=== PATIENT | female | born 1970 | race Caucasian/White ===

== ENCOUNTER 2022-06-06 06:12 | Day surgery (SDC) | payer OTHER, SELFPAY ==
--- NOTE | 2022-06-06 06:17 | CRLHL7_ITS ---
For Patients: As a result of the Century Cures Act, medical imaging exams and procedure reports are released immediately into your electronic medical record. You may view this report before your referring provider. If you have questions, please contact your health care provider. INDICATION: Preop assessment COMPARISON: None TECHNIQUE: Single-view study FINDINGS: TUBES AND LINES: None. HEART AND MEDIASTINUM: The heart size is normal. The mediastinal contour appears normal for patient age. LUNGS AND PLEURAL SPACES: The lungs appear normal.The pleural spaces are unremarkable. OSSEOUS STRUCTURES: Age-appropriate appearance. No acute focal finding. IMPRESSION: No evidence of active pulmonary disease. Dictated by Brent Fulton MD @ 06/06/2022 7:08:54 AM (Electronically Signed)
[2022-06-06] MEDS: LACTATED RINGERS 1000 ML 1,000 ML 100 ML IV ×2 (06:20→09:36)
[2022-06-06 06:40] VITALS: BP 124/81; PULSE 79; RESP 16; TEMP 37; O2SAT 97
[2022-06-06 06:42] VITALS: BMI 22.7
[2022-06-06] MEDS: SODIUM CHLORIDE 0.9 % (FLUSH) 10 ML SYRINGE IVF (07:11)
--- NOTE | 2022-06-06 07:12 | SUR.PREOP ---
Patient provided home covid negative results to RN.
--- NOTE | 2022-06-06 07:15 | W.ANESCHARGE ---
Anesthesia Charges Start Date/Time Anesthesia Start Date: 06/06/22 Anesthesia Start Time: 07:36 Stop Date/Time Anesthesia Stop Date: 06/06/22 Anesthesia Stop Time: 08:37
[2022-06-06] MEDS: BUPIVACAINE 0.5% 30 ML INJECTION (08:07)
[2022-06-06] MEDS: 0.9% SODIUM CHL 50 ML VIAL 100 ML INJECTION (08:07)
--- NOTE | 2022-06-06 08:20 | CRLHL7_ITS ---
For Patients: As a result of the Century Cures Act, medical imaging exams and procedure reports are released immediately into your electronic medical record. You may view this report before your referring provider. If you have questions, please contact your health care provider. INDICATION: Port-A-Cath placement. TECHNIQUE: Fluoroscopically guided left-sided Port-A-Cath placement. FINDINGS: 48.8 seconds fluoroscopy time utilized intraoperatively. A single spot image demonstrates a Port-A-Cath line with its tip in the mid superior vena cava. IMPRESSION: Left-sided Port-A-Cath placement. 48.8 seconds fluoroscopy time utilized. Dictated by Roger Yan MD @ 06/06/2022 8:26:52 AM (Electronically Signed)
--- NOTE | 2022-06-06 08:31 | CRLHL7_ITS ---
For Patients: As a result of the Century Cures Act, medical imaging exams and procedure reports are released immediately into your electronic medical record. You may view this report before your referring provider. If you have questions, please contact your health care provider. INDICATION: Port-A-Cath placement. TECHNIQUE: AP portable postprocedure chest x-ray. COMPARISON: June 06, 2022 performed earlier on the same date. FINDINGS: New left-sided Port-A-Cath with lead tip in the mid superior vena cava. No pneumothorax. Normal heart size. The included skeleton is unremarkable. IMPRESSION: New left-sided Port-A-Cath in good position. No pneumothorax. Dictated by Roger Yan MD @ 06/06/2022 8:56:58 AM (Electronically Signed)
[2022-06-06 08:34] VITALS: BP 100/77; PULSE 87; RESP 16; TEMP 36.6; O2SAT 98
--- NOTE | 2022-06-06 08:39 | W.ANESCHARGE ---
Anesthesia Charges Start Date/Time Anesthesia Start Date: 06/06/22 Anesthesia Start Time: 07:36 Stop Date/Time Anesthesia Stop Date: 06/06/22 Anesthesia Stop Time: 08:37
--- NOTE | 2022-06-06 08:42 | PM.GSPRC ---
Operative Note Date of procedure: 06/06/22 Pre-op diagnosis: Right-sided triple negative breast cancer Post-op diagnosis: Same Type of Procedure: Left IJ Port-A-Cath placement with ultrasound and fluoroscopic guidance Indications: The patient is a 51-year-old female who was diagnosed a right-sided breast cancer. This was found to be hormone receptor negative and therefore it was recommended she undergo neoadjuvant chemotherapy. She presents today for port placement for this. Preoperative imaging was reviewed and shows no pulmonary disease. Procedure Description: After discussing the risks and benefits of the procedure, the patient signed informed consent.? The operative site was marked and the patient was brought to the operating room and placed on the operating table in supine position.? Care was taken to pad the patient's pressure points.?? The patient was then given sedation by anesthesia.?? The operative site was then prepped and draped in the usual sterile fashion.? A time-out was then performed. The patient's left internal jugular vein was visualized using ultrasound. Local anesthetic was injected into the skin overlying the vein. This was accessed percutaneously using ultrasound guidance. Using Seldinger technique, a guidewire was threaded through the needle. Fluoroscopy was used to demonstrate the wire in the appropriate location in the SVC. A skin roni was made around the wire. Next, local anesthetic was injected into the skin below the clavicle and along the proposed tract to the neck incision. A skin incision was then made with a 15 blade and a pocket created in the subcutaneous tissue with cautery. A tunneler was then used to thread the catheter from the chest wall pocket to the neck incision. Once this was done fluoroscopy was brought into the field. Over the wire the tract was dilated using fluoroscopy. The wire and the dilator were then removed leaving the sheath in the vein. Through this, the catheter was threaded. Using fluoroscopy, the catheter was positioned into the distal SVC. The catheter was noted to flush and aspirate easily. The catheter was then connected to the port. The port was placed in the pocket and secured in place with 2 0 Prolene sutures. It was noted to flush and aspirate easily. This was then locked with heparinized saline. The skin was closed with absorbable suture. Sterile dressings were applied. Instrument sponge and needle counts were correct at the end of the case. The patient was woken and taken to the PACU in stable condition. ? Sterile dressings were then applied. ? Findings: Left IJ power port placed in the low SVC Anesthesia: MAC Surgeon: Kym Stuart MD Estimated blood loss (mL): 5 Condition: stable Disposition: same day
[2022-06-06 08:46] VITALS: BP 113/62; PULSE 68; RESP 16; O2SAT 99
[2022-06-06 09:38] VITALS: BP 123/72; PULSE 88; RESP 16; O2SAT 99
== END 2022-06-06 10:00 | disposition home or self-care (01) ==
PROVIDERS: PCP Physician Assistant; Visit Provider Surgery
PROC: (CPT 36561; principal; 2022-06-06 07:30)
DX: Z45.2 Encounter for adjustment and management of vascular access device (principal); C50.411 Malignant neoplasm of upper-outer quadrant of right female breast; C77.3 Secondary and unspecified malignant neoplasm of axilla and upper limb lymph nodes; Z17.1 Estrogen receptor negative status [ER-]
CPT/HCPCS: 36561; 00532; 71045; 76000; C1788; J2250; J2704; J3010; J3490; J7120

== ENCOUNTER 2022-06-07 13:10 | Outpatient (CLI) | payer OTHER, SELFPAY | END 2022-06-07 13:11 | disposition home or self-care (01) | LOC: RAD 13:10 | PROVIDERS: PCP Physician Assistant; Visit Provider Internal Medicine Hematology & Oncology | DX: Z51.81 Encounter for therapeutic drug level monitoring (principal); C50.919 Malignant neoplasm of unspecified site of unspecified female breast | CPT/HCPCS: 93306 ==

== ENCOUNTER 2022-08-16 13:45 | Outpatient (CLI) | payer OTHER, SELFPAY | END 2022-08-16 13:46 | disposition home or self-care (01) | LOC: RAD 13:46 | PROVIDERS: PCP Physician Assistant; Visit Provider Physician Assistant | DX: C50.912 Malignant neoplasm of unspecified site of left female breast (principal); Z51.81 Encounter for therapeutic drug level monitoring; Z79.899 Other long term (current) drug therapy | CPT/HCPCS: 93306 ==

== ENCOUNTER 2022-10-31 08:00 | Outpatient (RCR) | payer OTHER, SELFPAY ==
--- NOTE | 2022-05-29 16:00 | ONC.NURNOTE ---
I met with patient for chemotherapy teaching. Contents of the chemotherapy binder discussed including side effects of treatment, what to report to MD, how to contact the provider after hours, safe handling, etc. Patient was given a tour of the infusion area. Patient completed the distress screening and denies need for intervention at this time. Patient reports having a good support system. Patient verbalizes understanding of plan of care and was encouraged to call with questions or concerns.
--- NOTE | 2022-06-03 10:58 | URNOTE ---
Received request for prior authorization. Per [facility], Taxol (J9267), Carboplatin (J9045) and Aloxi (J2469) do not require prior authorization. Pembrolizumab (J9271) has been approved 05/29/2022-12/03/2022. Case #[id number]
[2022-06-06 09:30] VITALS: BP 122/77; PULSE 81; RESP 14; TEMP 36.1; O2SAT 98
[2022-06-06 10:00] VITALS: BP 118/80; PULSE 70; RESP 14; TEMP 36.1; O2SAT 96
[2022-06-06] MEDS: PALONOSETRON 0.25 MG/5 ML inj IV (10:00)
[2022-06-06 10:54] LABS: Basophils Absolute Auto 0.02 K/uL (0.00-0.30); Basophils Percent Auto 0.3 % (0.0-3.0); Eosinophils Absolute Auto 0.03 K/uL (0.00-0.50); Eosinophils Percent Auto 0.4 % (0.0-7.0); Hematocrit 40.3 % (33.0-51.0); Hemoglobin* 13.5 gm/dL (12.0-16.0); Immature Granulocytes Abs Auto 0.02 K/uL (0.00-0.30); Immature Granulocytes Pct Auto 0.3 %; Lymphocytes Absolute Auto 1.84 K/uL (0.90-2.90); Lymphocytes Percent Auto 24.8 % (20-44); Mean Corpuscular HGB Conc 34 gm/dL (32-36); Mean Corpuscular Hemoglobin 31 pg (26-34); Mean Corpuscular Volume 93 fL (80-100); Monocytes Percent Auto 4.9 % (0.0-11.0); Neutrophils Absolute Auto 5.15 K/uL (1.7-7.0); Neutrophils Percent Auto 69.3 % (42.0-72.0); Platelet Count* 316 K/uL (140-440); RDW Coefficient of Variation % 13.3 % (11.5-15.5); Red Blood Count 4.32 m/uL (4.00-5.20); White Blood Count* 7.42 K/uL (4.50-11.00)
[2022-06-06 10:57] LABS: Slide Review Reflex No
[2022-06-06 10:58] LABS: Albumin* 3.7 g/dL (3.3-5.0); Chloride* 109 mmol/L (96-114)
[2022-06-06 10:59] LABS: Potassium* 3.6 mmol/L (3.6-5.1); Sodium* 139 mmol/L (135-149)
[2022-06-06 11:01] LABS: Aspartate Amino Transferase* 25 U/L (12-35); Bilirubin Total* 0.4 mg/dL (0.1-1.5); Blood Urea Nitrogen* 11 mg/dL (7-30); Carbon Dioxide* 24 mmol/L (20-32); Creatinine* 0.7 mg/dL (0.5-1.5); Estimated Glomerular Filt Rate 105 ml/min; Total Protein* 6.3 g/dL (6.0-8.3)
[2022-06-06 11:02] LABS: Alanine Aminotransferase* 19 U/L (4-35); Alkaline Phosphatase* 57 U/L (40-150); Calcium* 8.3 mg/dL (8.4-10.6); Glucose* 117 mg/dL (60-115)
[2022-06-06] MEDS: PEMBROLIZUMAB 200 MG, TUBING PRIMARY 1 EACH, In-line 0.2 micron filter set 1 EACH in 0.... 216 MG IVPB (12:07)
[2022-06-06] MEDS: dexAMETHasone 20 MG in 0.9 % SODIUM CHLORIDE 100 ml 100 ML 408 MG IVPB (12:30)
[2022-06-06] MEDS: FAMOTIDINE 20 MG, diphenhydrAMINE 50 MG in 0.9 % SODIUM CHLORIDE 100 ml 100 ML 309 MG IVPB (13:16)
[2022-06-06] MEDS: TUBING PRIMARY IV (13:37)
[2022-06-06] MEDS: IN LINE IV (13:37)
[2022-06-06] MEDS: [UNRECOGNIZED DRUG - OTHER] IV (13:37)
[2022-06-06] MEDS: MICRON FILTER SET IV (13:37)
[2022-06-06] MEDS: PACLITAXEL IV (13:37)
--- NOTE | 2022-06-07 10:52 | ONC.NURNOTE ---
Call to patient in follow up to new start chemotherapy. Patient states she feels normal. She slept well, is eating and drinking and denies any new side effects. Patient reports feeling tightness around her new port site. I explained that this is pretty typical for the first several days. Encouraged her to monitor closely for neck swelling, redness, etc. and to report any of those immediately. Patient requested Rx for EMLA cream to be used prior to port access. Rx sent. Patient also reported her left middle finger is sore from the cryotherapy. No skin breakdown noted. Will continue to monitor. Patient denies any further questions or concerns.
[2022-06-07 16:33] LABS: Cortisol, Serum 12.4 ug/dL
[2022-06-13 08:44] VITALS: BP 112/76; PULSE 110; RESP 16; TEMP 36.6; O2SAT 96
[2022-06-13 09:15] LABS: Basophils Absolute Auto 0.03 K/uL (0.00-0.30); Basophils Percent Auto 0.5 % (0.0-3.0); Eosinophils Absolute Auto 0.09 K/uL (0.00-0.50); Eosinophils Percent Auto 1.6 % (0.0-7.0); Hematocrit 41.1 % (33.0-51.0); Hemoglobin* 13.9 gm/dL (12.0-16.0); Immature Granulocytes Abs Auto 0.02 K/uL (0.00-0.30); Immature Granulocytes Pct Auto 0.4 %; Lymphocytes Percent Auto 19.6 % (20-44); Mean Corpuscular HGB Conc 34 gm/dL (32-36); Mean Corpuscular Hemoglobin 31 pg (26-34); Mean Corpuscular Volume 92 fL (80-100); Monocytes Percent Auto 8.6 % (0.0-11.0); Neutrophils Absolute Auto 3.78 K/uL (1.7-7.0); Neutrophils Percent Auto 69.3 % (42.0-72.0); Platelet Count* 246 K/uL (140-440); RDW Coefficient of Variation % 13.1 % (11.5-15.5); Red Blood Count 4.45 m/uL (4.00-5.20); White Blood Count* 5.46 K/uL (4.50-11.00)
[2022-06-13 09:27] LABS: Slide Review Reflex No
[2022-06-13 09:34] LABS: Chloride* 106 mmol/L (96-114); Sodium* 137 mmol/L (135-149)
[2022-06-13 09:36] LABS: Bilirubin Total* 0.4 mg/dL (0.1-1.5); Creatinine* 0.7 mg/dL (0.5-1.5); Estimated Glomerular Filt Rate 105 ml/min
[2022-06-13 09:37] LABS: Alanine Aminotransferase* 20 U/L (4-35); Alkaline Phosphatase* 61 U/L (40-150); Aspartate Amino Transferase* 25 U/L (12-35); Blood Urea Nitrogen* 7 mg/dL (7-30); Calcium* 8.5 mg/dL (8.4-10.6); Carbon Dioxide* 25 mmol/L (20-32); Glucose* 120 mg/dL (60-115); Total Protein* 6.9 g/dL (6.0-8.3)
[2022-06-13] MEDS: dexAMETHasone 20 MG in 0.9 % SODIUM CHLORIDE 100 ml 100 ML 408 MG IVPB (10:09)
[2022-06-13] MEDS: PALONOSETRON 0.25 MG/5 ML inj IV (10:10)
[2022-06-13] MEDS: FAMOTIDINE 20 MG, diphenhydrAMINE 50 MG in 0.9 % SODIUM CHLORIDE 100 ml 100 ML 309 MG IVPB (10:28)
[2022-06-13] MEDS: [UNRECOGNIZED DRUG - OTHER] IV (10:56)
[2022-06-13] MEDS: PACLITAXEL IV (10:56)
[2022-06-13] MEDS: MICRON FILTER SET IV (10:56)
[2022-06-13] MEDS: TUBING PRIMARY IV (10:56)
[2022-06-13] MEDS: IN LINE IV (10:56)
[2022-06-20 08:05] LABS: Basophils Percent Auto 0.8 % (0.0-3.0); Eosinophils Percent Auto 2.8 % (0.0-7.0); Hematocrit 39.8 % (33.0-51.0); Hemoglobin* 13.3 gm/dL (12.0-16.0); Lymphocytes Percent Auto 48.5 % (20-44); Mean Corpuscular HGB Conc 33 gm/dL (32-36); Mean Corpuscular Hemoglobin 31 pg (26-34); Mean Corpuscular Volume 93 fL (80-100); Neutrophils Percent Auto 39.9 % (42.0-72.0); Platelet Count* 340 K/uL (140-440); RDW Coefficient of Variation % 13.1 % (11.5-15.5)
[2022-06-20 08:11] LABS: Slide Review Reflex No
[2022-06-20 08:20] LABS: Albumin* 3.7 g/dL (3.3-5.0)
[2022-06-20 08:21] LABS: Chloride* 108 mmol/L (96-114); Potassium* 3.9 mmol/L (3.6-5.1); Sodium* 140 mmol/L (135-149)
[2022-06-20 08:23] LABS: Bilirubin Total* 0.7 mg/dL (0.1-1.5); Carbon Dioxide* 25 mmol/L (20-32); Creatinine* 0.8 mg/dL (0.5-1.5); Estimated Glomerular Filt Rate 89 ml/min
[2022-06-20 08:24] LABS: Alanine Aminotransferase* 20 U/L (4-35); Alkaline Phosphatase* 64 U/L (40-150); Aspartate Amino Transferase* 25 U/L (12-35); Blood Urea Nitrogen* 15 mg/dL (7-30); Calcium* 8.7 mg/dL (8.4-10.6); Glucose* 88 mg/dL (60-115); Total Protein* 6.6 g/dL (6.0-8.3)
[2022-06-20] MEDS: dexAMETHasone 20 MG in 0.9 % SODIUM CHLORIDE 100 ml 100 ML 420 MG IVPB (09:29)
[2022-06-20] MEDS: PALONOSETRON 0.25 MG/5 ML inj IV (09:30)
[2022-06-20] MEDS: FAMOTIDINE 20 MG, diphenhydrAMINE 50 MG in 0.9 % SODIUM CHLORIDE 100 ml 100 ML 420 MG IVPB (09:49)
[2022-06-20] MEDS: TUBING PRIMARY IV (10:10)
[2022-06-20] MEDS: [UNRECOGNIZED DRUG - OTHER] IV (10:10)
[2022-06-20] MEDS: IN LINE IV (10:10)
[2022-06-20] MEDS: PACLITAXEL IV (10:10)
[2022-06-20] MEDS: MICRON FILTER SET IV (10:10)
--- NOTE | 2022-06-20 13:26 | PC.NURSE ---
Addendum entered by Elizabeth Hassan RN 06/20/22 15:22: Pt called back this afternoon and states that the rash has resolved. Original Note: Pt called this afternoon with new concerns of slight rash on her thighs after having chemo this morning. Luci states that she got a meal at [employer] and in the car rested the bag on her lap. When pt got home she used the restroom and when pants down noted a slight rash on her legs in the area where the bag was setting. RN advised pt to monitor over the next hour or so and call back at 3:00 PM with an update. Luci asked that HAYLEE Jules be notified. This was done. Will follow.
--- NOTE | 2022-06-21 11:45 | URNOTE ---
Request received for authorization for tbo-filgrastim (Granix) (J1447). Prior authorization is not required per Rep. Bassam mendoza [facility] Ref#[id number].
--- NOTE | 2022-06-21 15:49 | URNOTE ---
Request received for authorization for Minubo (J1442).?Prior authorization is not required?per Rep. Aba Childress at [facility] Ref#[id number].
[2022-06-27 10:38] VITALS: BP 110/58; PULSE 93; RESP 16; TEMP 36.6; O2SAT 95
[2022-06-27 11:04] LABS: Basophils Percent Auto 0.8 % (0.0-3.0); Eosinophils Percent Auto 0.5 % (0.0-7.0); Hematocrit 39.1 % (33.0-51.0); Hemoglobin* 13.1 gm/dL (12.0-16.0); Immature Granulocytes Pct Auto 0.3 %; Lymphocytes Percent Auto 43.4 % (20-44); Mean Corpuscular HGB Conc 34 gm/dL (32-36); Mean Corpuscular Hemoglobin 32 pg (26-34); Mean Corpuscular Volume 94 fL (80-100); Monocytes Percent Auto 6.9 % (0.0-11.0); Neutrophils Percent Auto 48.1 % (42.0-72.0); Platelet Count* 351 K/uL (140-440); RDW Coefficient of Variation % 13.2 % (11.5-15.5); Red Blood Count 4.16 m/uL (4.00-5.20); White Blood Count* 3.78 K/uL (4.50-11.00)
[2022-06-27 11:09] LABS: Slide Review Reflex No
[2022-06-27 11:21] LABS: Albumin* 3.7 g/dL (3.3-5.0); Chloride* 110 mmol/L (96-114); Sodium* 138 mmol/L (135-149)
[2022-06-27 11:22] LABS: Potassium* 3.9 mmol/L (3.6-5.1)
[2022-06-27 11:24] LABS: Alkaline Phosphatase* 58 U/L (40-150); Aspartate Amino Transferase* 25 U/L (12-35); Bilirubin Total* 0.4 mg/dL (0.1-1.5); Carbon Dioxide* 25 mmol/L (20-32); Creatinine* 0.7 mg/dL (0.5-1.5); Estimated Glomerular Filt Rate 105 ml/min; Total Protein* 6.5 g/dL (6.0-8.3)
[2022-06-27 11:25] LABS: Alanine Aminotransferase* 20 U/L (4-35); Blood Urea Nitrogen* 14 mg/dL (7-30); Calcium* 8.6 mg/dL (8.4-10.6); Glucose* 102 mg/dL (60-115)
[2022-06-27] MEDS: PEMBROLIZUMAB 200 MG, TUBING PRIMARY 1 EACH, In-line 0.2 micron filter set 1 EACH in 0.... 216 MG IVPB (12:07)
[2022-06-27] MEDS: PALONOSETRON 0.25 MG/5 ML inj IV (12:46)
[2022-06-27] MEDS: dexAMETHasone 20 MG in 0.9 % SODIUM CHLORIDE 100 ml 100 ML 408 MG IVPB (12:46)
[2022-06-27] MEDS: 0.9 % SODIUM CHLORIDE 250 ml IV (13:05)
[2022-06-27] MEDS: FAMOTIDINE 20 MG, diphenhydrAMINE 50 MG in 0.9 % SODIUM CHLORIDE 100 ml 100 ML 309 MG IVPB (13:05)
[2022-06-27] MEDS: SODIUM CHLORIDE 0.9 % (FLUSH) 10 ML SYRINGE IVF ×2 (13:06→15:10)
[2022-06-27] MEDS: IN LINE IV (13:26)
[2022-06-27] MEDS: [UNRECOGNIZED DRUG - OTHER] IV (13:26)
[2022-06-27] MEDS: PACLITAXEL IV (13:26)
[2022-06-27] MEDS: MICRON FILTER SET IV (13:26)
[2022-06-27] MEDS: TUBING PRIMARY IV (13:26)
[2022-06-27] MEDS: HEPARIN 500 UNIT/5 ML SYRINGE IVF (15:10)
[2022-06-28 12:00] LABS: Cortisol, Serum 12.4 ug/dL
[2022-06-28 15:03] VITALS: BP 115/75; PULSE 82; RESP 16; TEMP 36.7; O2SAT 99
[2022-06-28] MEDS: TBO-FILGRASTIM 300 MCG/0.5 ML INJ SUBCUT (15:11)
[2022-07-04 07:58] VITALS: BP 102/71; PULSE 92; RESP 16; TEMP 36.7; O2SAT 95
[2022-07-04 08:14] LABS: Basophils Percent Auto 0.6 % (0.0-3.0); Eosinophils Percent Auto 0.9 % (0.0-7.0); Hematocrit 39.1 % (33.0-51.0); Immature Granulocytes Pct Auto 0.3 %; Lymphocytes Percent Auto 52.5 % (20-44); Mean Corpuscular HGB Conc 33 gm/dL (32-36); Mean Corpuscular Hemoglobin 31 pg (26-34); Mean Corpuscular Volume 94 fL (80-100); Monocytes Percent Auto 11.6 % (0.0-11.0); Neutrophils Percent Auto 34.1 % (42.0-72.0); Platelet Count* 269 K/uL (140-440); RDW Coefficient of Variation % 13.5 % (11.5-15.5); Red Blood Count 4.15 m/uL (4.00-5.20); White Blood Count* 3.45 K/uL (4.50-11.00)
[2022-07-04 08:26] LABS: Slide Review Reflex No
[2022-07-04] MEDS: SODIUM CHLORIDE 0.9 % (FLUSH) 10 ML SYRINGE IVF (08:30)
[2022-07-04 08:31] LABS: Albumin* 3.8 g/dL (3.3-5.0); Chloride* 108 mmol/L (96-114); Sodium* 139 mmol/L (135-149)
[2022-07-04 08:32] LABS: Potassium* 3.9 mmol/L (3.6-5.1)
[2022-07-04 08:34] LABS: Aspartate Amino Transferase* 28 U/L (12-35); Bilirubin Total* 0.5 mg/dL (0.1-1.5); Blood Urea Nitrogen* 17 mg/dL (7-30); Carbon Dioxide* 23 mmol/L (20-32); Creatinine* 0.7 mg/dL (0.5-1.5); Estimated Glomerular Filt Rate 105 ml/min; Total Protein* 6.6 g/dL (6.0-8.3)
[2022-07-04 08:35] LABS: Alanine Aminotransferase* 24 U/L (4-35); Alkaline Phosphatase* 66 U/L (40-150); Calcium* 8.6 mg/dL (8.4-10.6); Glucose* 110 mg/dL (60-115)
[2022-07-04] MEDS: 0.9 % SODIUM CHLORIDE 250 ml IV (08:53)
[2022-07-04] MEDS: dexAMETHasone 20 MG in 0.9 % SODIUM CHLORIDE 100 ml 100 ML 420 MG IVPB (09:06)
[2022-07-04] MEDS: PALONOSETRON 0.25 MG/5 ML inj IV (09:06)
[2022-07-04] MEDS: FAMOTIDINE 20 MG, diphenhydrAMINE 50 MG in 0.9 % SODIUM CHLORIDE 100 ml 100 ML 420 MG IVPB (09:28)
[2022-07-04] MEDS: MICRON FILTER SET IV (10:07)
[2022-07-04] MEDS: TUBING PRIMARY IV (10:07)
[2022-07-04] MEDS: [UNRECOGNIZED DRUG - OTHER] IV (10:07)
[2022-07-04] MEDS: IN LINE IV (10:07)
[2022-07-04] MEDS: PACLITAXEL IV (10:07)
[2022-07-04] MEDS: SODIUM CHLORIDE 0.9% IVPB (11:11)
[2022-07-04] MEDS: TUBING SECONDARY IVPB (11:11)
[2022-07-04] MEDS: CARBOPLATIN IVPB (11:11)
[2022-07-05 15:00] VITALS: BP 111/72; PULSE 80; RESP 16; TEMP 37.1; O2SAT 97
[2022-07-05] MEDS: TBO-FILGRASTIM 300 MCG/0.5 ML INJ SUBCUT (15:10)
[2022-07-11 08:01] VITALS: BP 98/66; PULSE 95; RESP 16; TEMP 36.7; O2SAT 95
[2022-07-11 08:15] LABS: Basophils Percent Auto 0.5 % (0.0-3.0); Eosinophils Percent Auto 0.7 % (0.0-7.0); Hematocrit 38.1 % (33.0-51.0); Immature Granulocytes Pct Auto 0.2 %; Lymphocytes Percent Auto 45.7 % (20-44); Mean Corpuscular HGB Conc 34 gm/dL (32-36); Mean Corpuscular Hemoglobin 32 pg (26-34); Mean Corpuscular Volume 93 fL (80-100); Monocytes Percent Auto 10.1 % (0.0-11.0); Neutrophils Percent Auto 42.8 % (42.0-72.0); Platelet Count* 203 K/uL (140-440); RDW Coefficient of Variation % 13.7 % (11.5-15.5); Red Blood Count 4.09 m/uL (4.00-5.20); White Blood Count* 4.27 K/uL (4.50-11.00)
[2022-07-11 08:29] LABS: Chloride* 108 mmol/L (96-114); Potassium* 4.1 mmol/L (3.6-5.1); Sodium* 139 mmol/L (135-149)
[2022-07-11 08:31] LABS: Slide Review Reflex No
[2022-07-11 08:32] LABS: Alanine Aminotransferase* 24 U/L (4-35); Alkaline Phosphatase* 75 U/L (40-150); Aspartate Amino Transferase* 24 U/L (12-35); Bilirubin Total* 0.6 mg/dL (0.1-1.5); Blood Urea Nitrogen* 15 mg/dL (7-30); Carbon Dioxide* 25 mmol/L (20-32); Creatinine* 0.8 mg/dL (0.5-1.5); Estimated Glomerular Filt Rate 89 ml/min; Glucose* 98 mg/dL (60-115); Total Protein* 6.8 g/dL (6.0-8.3)
[2022-07-11 08:33] LABS: Calcium* 8.8 mg/dL (8.4-10.6)
[2022-07-11] MEDS: dexAMETHasone 20 MG in 0.9 % SODIUM CHLORIDE 100 ml 100 ML 408 MG IVPB (09:32)
[2022-07-11] MEDS: PALONOSETRON 0.25 MG/5 ML inj IV (09:32)
[2022-07-11] MEDS: 0.9 % SODIUM CHLORIDE 250 ml IV (09:32)
[2022-07-11] MEDS: FAMOTIDINE 20 MG, diphenhydrAMINE 50 MG in 0.9 % SODIUM CHLORIDE 100 ml 100 ML 309 MG IVPB (09:56)
[2022-07-11] MEDS: IN LINE IV (10:23)
[2022-07-11] MEDS: [UNRECOGNIZED DRUG - OTHER] IV (10:23)
[2022-07-11] MEDS: TUBING PRIMARY IV (10:23)
[2022-07-11] MEDS: PACLITAXEL IV (10:23)
[2022-07-11] MEDS: MICRON FILTER SET IV (10:23)
[2022-07-11] MEDS: HEPARIN 500 UNIT/5 ML SYRINGE IVF (12:23)
[2022-07-11] MEDS: SODIUM CHLORIDE 0.9 % (FLUSH) 10 ML SYRINGE IVF (12:29)
[2022-07-12 15:00] VITALS: BP 110/65; PULSE 76; RESP 16; TEMP 36; O2SAT 97
[2022-07-12] MEDS: TBO-FILGRASTIM 300 MCG/0.5 ML INJ SUBCUT (15:08)
[2022-07-18 08:20] VITALS: BP 97/65; PULSE 72; RESP 16; TEMP 36.7; O2SAT 96
[2022-07-18 08:26] LABS: Basophils Percent Auto 0.7 % (0.0-3.0); Eosinophils Percent Auto 0.7 % (0.0-7.0); Hematocrit 35.8 % (33.0-51.0); Immature Granulocytes Pct Auto 0.3 %; Mean Corpuscular HGB Conc 34 gm/dL (32-36); Mean Corpuscular Hemoglobin 32 pg (26-34); Mean Corpuscular Volume 95 fL (80-100); Monocytes Percent Auto 9.9 % (0.0-11.0); Neutrophils Percent Auto 32.4 % (42.0-72.0); Platelet Count* 232 K/uL (140-440); Red Blood Count 3.78 m/uL (4.00-5.20); White Blood Count* 3.02 K/uL (4.50-11.00)
[2022-07-18 08:30] LABS: Slide Review Reflex No
[2022-07-18 08:40] LABS: Albumin* 3.9 g/dL (3.3-5.0); Chloride* 109 mmol/L (96-114); Potassium* 4.3 mmol/L (3.6-5.1); Sodium* 140 mmol/L (135-149)
[2022-07-18 08:42] LABS: Creatinine* 0.7 mg/dL (0.5-1.5); Estimated Glomerular Filt Rate 105 ml/min
[2022-07-18 08:43] LABS: Alanine Aminotransferase* 24 U/L (4-35); Alkaline Phosphatase* 68 U/L (40-150); Aspartate Amino Transferase* 25 U/L (12-35); Bilirubin Total* 0.4 mg/dL (0.1-1.5); Blood Urea Nitrogen* 16 mg/dL (7-30); Carbon Dioxide* 26 mmol/L (20-32); Glucose* 94 mg/dL (60-115); Total Protein* 6.5 g/dL (6.0-8.3)
[2022-07-18 08:44] LABS: Calcium* 8.7 mg/dL (8.4-10.6)
[2022-07-18] MEDS: 0.9 % SODIUM CHLORIDE 250 ml IV (09:46)
[2022-07-18] MEDS: PEMBROLIZUMAB 200 MG, TUBING PRIMARY 1 EACH, In-line 0.2 micron filter set 1 EACH in 0.... 216 MG IVPB (10:04)
[2022-07-18] MEDS: dexAMETHasone 20 MG in 0.9 % SODIUM CHLORIDE 100 ml 100 ML 420 MG IVPB (10:38)
[2022-07-18] MEDS: PALONOSETRON 0.25 MG/5 ML inj IV (10:38)
[2022-07-18] MEDS: FAMOTIDINE 20 MG, diphenhydrAMINE 50 MG in 0.9 % SODIUM CHLORIDE 100 ml 100 ML 420 MG IVPB (10:57)
[2022-07-18] MEDS: MICRON FILTER SET IV (11:17)
[2022-07-18] MEDS: PACLITAXEL IV (11:17)
[2022-07-18] MEDS: TUBING PRIMARY IV (11:17)
[2022-07-18] MEDS: [UNRECOGNIZED DRUG - OTHER] IV (11:17)
[2022-07-18] MEDS: IN LINE IV (11:17)
[2022-07-18] MEDS: HEPARIN 500 UNIT/5 ML SYRINGE IVF (12:55)
[2022-07-18] MEDS: SODIUM CHLORIDE 0.9 % (FLUSH) 10 ML SYRINGE IVF (12:55)
[2022-07-19 11:33] LABS: Cortisol, Serum 18.1 ug/dL
[2022-07-19 15:14] VITALS: BP 103/75; PULSE 74; RESP 16; TEMP 36.8; O2SAT 98
[2022-07-19] MEDS: TBO-FILGRASTIM 300 MCG/0.5 ML INJ SUBCUT (15:16)
[2022-07-22 14:59] VITALS: BP 100/69; PULSE 88; RESP 16; TEMP 36.3; O2SAT 97
[2022-07-22] MEDS: TBO-FILGRASTIM 300 MCG/0.5 ML INJ SUBCUT (15:01)
[2022-07-25 08:08] VITALS: BP 95/69; PULSE 84; RESP 16; TEMP 36.4; O2SAT 96
[2022-07-25 08:30] LABS: Basophils Percent Auto 0.2 % (0.0-3.0); Eosinophils Percent Auto 0.5 % (0.0-7.0); Hematocrit 34.4 % (33.0-51.0); Hemoglobin* 11.5 gm/dL (12.0-16.0); Immature Granulocytes Pct Auto 0.7 %; Mean Corpuscular HGB Conc 33 gm/dL (32-36); Mean Corpuscular Hemoglobin 32 pg (26-34); Mean Corpuscular Volume 96 fL (80-100); Monocytes Percent Auto 9.9 % (0.0-11.0); Neutrophils Percent Auto 48.7 % (42.0-72.0); Platelet Count* 267 K/uL (140-440); RDW Coefficient of Variation % 14.8 % (11.5-15.5); Red Blood Count 3.58 m/uL (4.00-5.20); White Blood Count* 4.35 K/uL (4.50-11.00)
[2022-07-25 08:38] LABS: Slide Review Reflex No
[2022-07-25 08:50] LABS: Albumin* 3.6 g/dL (3.3-5.0); Chloride* 107 mmol/L (96-114); Potassium* 3.5 mmol/L (3.6-5.1); Sodium* 139 mmol/L (135-149)
[2022-07-25 08:52] LABS: Creatinine* 0.7 mg/dL (0.5-1.5); Estimated Glomerular Filt Rate 105 ml/min
[2022-07-25 08:53] LABS: Alanine Aminotransferase* 22 U/L (4-35); Alkaline Phosphatase* 69 U/L (40-150); Aspartate Amino Transferase* 24 U/L (12-35); Bilirubin Total* 0.3 mg/dL (0.1-1.5); Blood Urea Nitrogen* 12 mg/dL (7-30); Calcium* 8.4 mg/dL (8.4-10.6); Carbon Dioxide* 24 mmol/L (20-32); Glucose* 98 mg/dL (60-115)
[2022-07-25] MEDS: dexAMETHasone 20 MG in 0.9 % SODIUM CHLORIDE 100 ml 100 ML 408 MG IVPB (09:30)
[2022-07-25] MEDS: FAMOTIDINE 20 MG, diphenhydrAMINE 50 MG in 0.9 % SODIUM CHLORIDE 100 ml 100 ML 309 MG IVPB (09:57)
[2022-07-25] MEDS: PALONOSETRON 0.25 MG/5 ML inj IV (09:58)
[2022-07-25] MEDS: [UNRECOGNIZED DRUG - OTHER] IV (10:25)
[2022-07-25] MEDS: IN LINE IV (10:25)
[2022-07-25] MEDS: MICRON FILTER SET IV (10:25)
[2022-07-25] MEDS: TUBING PRIMARY IV (10:25)
[2022-07-25] MEDS: PACLITAXEL IV (10:25)
[2022-07-25] MEDS: 0.9 % SODIUM CHLORIDE 250 ml IV (10:37)
[2022-07-25] MEDS: SODIUM CHLORIDE 0.9 % (FLUSH) 10 ML SYRINGE IVF (10:37)
[2022-07-25] MEDS: HEPARIN 500 UNIT/5 ML SYRINGE IVF (10:37)
--- NOTE | 2022-07-25 10:46 | ONC.NURNOTE ---
states fingers tips are fine and healed. Pt had 24 hr urine. the pt showed me the result they were normal. no symptoms of UTI. no hematura. no LBP. voiding well drinking water and cranberry juice.
[2022-07-26 15:00] VITALS: BP 119/73; PULSE 85; RESP 16; TEMP 36.1; O2SAT 98
[2022-07-26] MEDS: TBO-FILGRASTIM 300 MCG/0.5 ML INJ SUBCUT (15:15)
--- NOTE | 2022-07-26 15:36 | ONC.NURNOTE ---
states had a slight episode yesturday of brain fog.
[2022-08-01 08:15] VITALS: BP 93/65; PULSE 82; RESP 16; TEMP 36.4; O2SAT 97
[2022-08-01 08:35] LABS: Basophils Percent Auto 0.3 % (0.0-3.0); Eosinophils Percent Auto 0.3 % (0.0-7.0); Hematocrit 33.3 % (33.0-51.0); Hemoglobin* 11.4 gm/dL (12.0-16.0); Immature Granulocytes Pct Auto 0.3 %; Lymphocytes Percent Auto 44.5 % (20-44); Mean Corpuscular HGB Conc 34 gm/dL (32-36); Mean Corpuscular Hemoglobin 33 pg (26-34); Mean Corpuscular Volume 97 fL (80-100); Neutrophils Percent Auto 46.6 % (42.0-72.0); Platelet Count* 269 K/uL (140-440); RDW Coefficient of Variation % 15.2 % (11.5-15.5); Red Blood Count 3.45 m/uL (4.00-5.20); White Blood Count* 3.26 K/uL (4.50-11.00)
[2022-08-01 08:49] LABS: Slide Review Reflex No
[2022-08-01 09:29] LABS: Albumin* 3.6 g/dL (3.3-5.0); Chloride* 108 mmol/L (96-114); Potassium* 3.8 mmol/L (3.6-5.1); Sodium* 140 mmol/L (135-149)
[2022-08-01 09:31] LABS: Bilirubin Total* 0.3 mg/dL (0.1-1.5); Carbon Dioxide* 24 mmol/L (20-32); Creatinine* 0.7 mg/dL (0.5-1.5); Estimated Glomerular Filt Rate 105 ml/min; Total Protein* 6.1 g/dL (6.0-8.3)
[2022-08-01 09:32] LABS: Alanine Aminotransferase* 29 U/L (4-35); Alkaline Phosphatase* 64 U/L (40-150); Aspartate Amino Transferase* 31 U/L (12-35); Blood Urea Nitrogen* 13 mg/dL (7-30); Calcium* 8.6 mg/dL (8.4-10.6); Glucose* 119 mg/dL (60-115)
[2022-08-01] MEDS: PALONOSETRON 0.25 MG/5 ML inj IV (10:08)
[2022-08-01] MEDS: dexAMETHasone 20 MG in 0.9 % SODIUM CHLORIDE 100 ml 100 ML 408 MG IVPB (10:09)
[2022-08-01] MEDS: FAMOTIDINE 20 MG, diphenhydrAMINE 50 MG in 0.9 % SODIUM CHLORIDE 100 ml 100 ML 309 MG IVPB (10:33)
[2022-08-01] MEDS: [UNRECOGNIZED DRUG - OTHER] IV (11:10)
[2022-08-01] MEDS: PACLITAXEL IV (11:10)
[2022-08-01] MEDS: TUBING PRIMARY IV (11:10)
[2022-08-01] MEDS: IN LINE IV (11:10)
[2022-08-01] MEDS: MICRON FILTER SET IV (11:10)
[2022-08-02] MEDS: TBO-FILGRASTIM 300 MCG/0.5 ML INJ SUBCUT (15:12)
[2022-08-08 08:58] LABS: Albumin* 3.8 g/dL (3.3-5.0); Chloride* 108 mmol/L (96-114)
[2022-08-08 08:59] LABS: Potassium* 4.1 mmol/L (3.6-5.1); Sodium* 141 mmol/L (135-149)
[2022-08-08 09:00] LABS: Basophils Percent Auto 0.2 % (0.0-3.0); Eosinophils Percent Auto 0.2 % (0.0-7.0); Hematocrit 35.3 % (33.0-51.0); Immature Granulocytes Pct Auto 1.5 %; Lymphocytes Percent Auto 41.3 % (20-44); Mean Corpuscular HGB Conc 34 gm/dL (32-36); Mean Corpuscular Hemoglobin 33 pg (26-34); Mean Corpuscular Volume 97 fL (80-100); Monocytes Percent Auto 12.1 % (0.0-11.0); Neutrophils Percent Auto 44.7 % (42.0-72.0); Platelet Count* 381 K/uL (140-440); RDW Coefficient of Variation % 16.4 % (11.5-15.5); Red Blood Count 3.64 m/uL (4.00-5.20); White Blood Count* 4.12 K/uL (4.50-11.00)
[2022-08-08 09:01] LABS: Bilirubin Total* 0.2 mg/dL (0.1-1.5); Carbon Dioxide* 26 mmol/L (20-32); Creatinine* 0.7 mg/dL (0.5-1.5); Estimated Glomerular Filt Rate 105 ml/min
[2022-08-08 09:02] LABS: Alanine Aminotransferase* 24 U/L (4-35); Alkaline Phosphatase* 72 U/L (40-150); Aspartate Amino Transferase* 27 U/L (12-35); Blood Urea Nitrogen* 15 mg/dL (7-30); Calcium* 8.9 mg/dL (8.4-10.6); Glucose* 94 mg/dL (60-115); Total Protein* 6.5 g/dL (6.0-8.3)
[2022-08-08 09:13] LABS: Slide Review Reflex No
[2022-08-08] MEDS: PEMBROLIZUMAB 200 MG, TUBING PRIMARY 1 EACH, In-line 0.2 micron filter set 1 EACH in 0.... 216 MG IVPB (11:08)
[2022-08-08] MEDS: dexAMETHasone 20 MG in 0.9 % SODIUM CHLORIDE 100 ml 100 ML 408 MG IVPB (11:37)
[2022-08-08] MEDS: PALONOSETRON 0.25 MG/5 ML inj IV (11:37)
[2022-08-08] MEDS: FAMOTIDINE 20 MG, diphenhydrAMINE 50 MG in 0.9 % SODIUM CHLORIDE 100 ml 100 ML 420 MG IVPB (12:00)
[2022-08-08] MEDS: TUBING PRIMARY IV (12:24)
[2022-08-08] MEDS: [UNRECOGNIZED DRUG - OTHER] IV (12:24)
[2022-08-08] MEDS: MICRON FILTER SET IV (12:24)
[2022-08-08] MEDS: PACLITAXEL IV (12:24)
[2022-08-08] MEDS: IN LINE IV (12:24)
[2022-08-08] MEDS: CARBOplatin 180 MG, TUBING SECONDARY 1 EACH in 0.9 % SODIUM CHLORIDE 250 ml 250 ML 536 MG IVPB (13:37)
[2022-08-08] MEDS: SODIUM CHLORIDE 0.9 % (FLUSH) 10 ML SYRINGE IVF (14:20)
[2022-08-08] MEDS: 0.9 % SODIUM CHLORIDE 250 ml IV (14:20)
[2022-08-08] MEDS: HEPARIN 500 UNIT/5 ML SYRINGE IVF (14:20)
--- NOTE | 2022-08-08 14:40 | ONC.NURNOTE ---
I spoke with Dr. Sebastian about Granix injections. At the start of cycle 3, Granix was ordered to be given the Friday and Friday after chemotherapy. This was only done with the first week of the cycle. Patients ANC has stayed within parameters to treat. Confirmed with Dr. Sebastian that we can continue giving Granix the day after chemotherapy only but will add in the second dose if her counts drop.
[2022-08-09 09:30] LABS: Cortisol, Serum 15.9 ug/dL
[2022-08-09 15:12] VITALS: BP 111/71; PULSE 91; RESP 16; TEMP 36.7; O2SAT 98
[2022-08-09] MEDS: TBO-FILGRASTIM 300 MCG/0.5 ML INJ SUBCUT (15:20)
[2022-08-15 08:09] VITALS: BP 85/50; PULSE 89; RESP 16; TEMP 36.4; O2SAT 97
[2022-08-15 08:23] VITALS: BP 101/70; PULSE 85
[2022-08-15 08:32] LABS: Basophils Percent Auto 0.8 % (0.0-3.0); Eosinophils Percent Auto 0.5 % (0.0-7.0); Hematocrit 34.3 % (33.0-51.0); Hemoglobin* 11.7 gm/dL (12.0-16.0); Immature Granulocytes Pct Auto 0.3 %; Lymphocytes Percent Auto 42.7 % (20-44); Mean Corpuscular HGB Conc 34 gm/dL (32-36); Mean Corpuscular Hemoglobin 33 pg (26-34); Mean Corpuscular Volume 97 fL (80-100); Monocytes Percent Auto 11.3 % (0.0-11.0); Neutrophils Percent Auto 44.4 % (42.0-72.0); Platelet Count* 301 K/uL (140-440); RDW Coefficient of Variation % 16.9 % (11.5-15.5); Red Blood Count 3.54 m/uL (4.00-5.20); White Blood Count* 3.91 K/uL (4.50-11.00)
[2022-08-15 08:36] LABS: Slide Review Reflex No
[2022-08-15 08:39] VITALS: BP 110/70; PULSE 95
[2022-08-15 08:47] LABS: Albumin* 3.9 g/dL (3.3-5.0); Chloride* 107 mmol/L (96-114)
[2022-08-15 08:48] LABS: Potassium* 3.9 mmol/L (3.6-5.1); Sodium* 139 mmol/L (135-149)
[2022-08-15 08:50] LABS: Bilirubin Total* 0.4 mg/dL (0.1-1.5); Creatinine* 0.7 mg/dL (0.5-1.5); Estimated Glomerular Filt Rate 105 ml/min
[2022-08-15 08:51] LABS: Alanine Aminotransferase* 24 U/L (4-35); Alkaline Phosphatase* 68 U/L (40-150); Aspartate Amino Transferase* 27 U/L (12-35); Blood Urea Nitrogen* 15 mg/dL (7-30); Carbon Dioxide* 26 mmol/L (20-32); Glucose* 91 mg/dL (60-115); Total Protein* 6.6 g/dL (6.0-8.3)
[2022-08-15] MEDS: SODIUM CHLORIDE 0.9 % (FLUSH) 10 ML SYRINGE IVF (09:25)
[2022-08-15] MEDS: PALONOSETRON 0.25 MG/5 ML inj IV (09:25)
[2022-08-15] MEDS: 0.9 % SODIUM CHLORIDE 250 ml IV (09:25)
[2022-08-15] MEDS: dexAMETHasone 20 MG in 0.9 % SODIUM CHLORIDE 100 ml 100 ML 408 MG IVPB (09:54)
[2022-08-15] MEDS: FAMOTIDINE 20 MG, diphenhydrAMINE 50 MG in 0.9 % SODIUM CHLORIDE 100 ml 100 ML 412 MG IVPB (10:15)
[2022-08-15] MEDS: TUBING PRIMARY IV (10:42)
[2022-08-15] MEDS: MICRON FILTER SET IV (10:42)
[2022-08-15] MEDS: IN LINE IV (10:42)
[2022-08-15] MEDS: PACLITAXEL IV (10:42)
[2022-08-15] MEDS: [UNRECOGNIZED DRUG - OTHER] IV (10:42)
[2022-08-15] MEDS: CARBOplatin 180 MG, TUBING SECONDARY 1 EACH in 0.9 % SODIUM CHLORIDE 250 ml 250 ML 536 MG IVPB (11:52)
[2022-08-16 15:00] VITALS: BP 110/72; PULSE 70; RESP 16; TEMP 36.1; O2SAT 95
[2022-08-16] MEDS: TBO-FILGRASTIM 300 MCG/0.5 ML INJ SUBCUT (15:02)
--- NOTE | 2022-08-19 11:51 | URNOTE ---
Request received for Doxorubicin 105mg (J900), Cytoxan 1050mg (J9070), Fosaprepitant 150mg (J1453), Palonosetron (Aloxi) 0.25mg (J2469): Do Not require PA per [facility] RepJosé Indraalberto Ref#[id number]. Pembrolizumab (Keytruda) (J9271) (continued from previous regimen) approved from 08/13/2022 to 12/03/2022, Auth# [id number]. Pegfilgrastim (Neulasta) 6mg (J2506), approved by [employer] from 08/09/2022 to 11/09/2022, Auth#[id number].
[2022-08-22 08:02] VITALS: BP 103/72; PULSE 86; RESP 16; TEMP 36.7; O2SAT 97
[2022-08-22 08:22] LABS: Hematocrit 34.6 % (33.0-51.0); Hemoglobin* 11.7 gm/dL (12.0-16.0); Lymphocytes Percent Auto 42.3 % (20-44); Mean Corpuscular HGB Conc 34 gm/dL (32-36); Mean Corpuscular Hemoglobin 33 pg (26-34); Mean Corpuscular Volume 98 fL (80-100); Neutrophils Percent Auto 44.6 % (42.0-72.0); Platelet Count* 236 K/uL (140-440); RDW Coefficient of Variation % 17.3 % (11.5-15.5); Red Blood Count 3.54 m/uL (4.00-5.20); White Blood Count* 3.76 K/uL (4.50-11.00)
[2022-08-22 08:23] LABS: Basophils Percent Auto 0.3 % (0.0-3.0); Eosinophils Percent Auto 0.3 % (0.0-7.0); Immature Granulocytes Pct Auto 0.5 %
[2022-08-22 08:24] LABS: Slide Review Reflex No
[2022-08-22 08:36] LABS: Albumin* 3.7 g/dL (3.3-5.0); Chloride* 108 mmol/L (96-114); Sodium* 141 mmol/L (135-149)
[2022-08-22 08:37] LABS: Potassium* 3.8 mmol/L (3.6-5.1)
[2022-08-22 08:39] LABS: Alkaline Phosphatase* 65 U/L (40-150); Aspartate Amino Transferase* 23 U/L (12-35); Bilirubin Total* 0.3 mg/dL (0.1-1.5); Blood Urea Nitrogen* 14 mg/dL (7-30); Carbon Dioxide* 26 mmol/L (20-32); Creatinine* 0.8 mg/dL (0.5-1.5); Est. Creatinine Clearance* 71.84; Estimated Glomerular Filt Rate 89 ml/min; Total Protein* 6.3 g/dL (6.0-8.3)
[2022-08-22 08:40] LABS: Alanine Aminotransferase* 21 U/L (4-35); Calcium* 8.9 mg/dL (8.4-10.6); Glucose* 95 mg/dL (60-115)
[2022-08-22] MEDS: PALONOSETRON 0.25 MG/5 ML inj IV (09:42)
[2022-08-22] MEDS: dexAMETHasone 20 MG in 0.9 % SODIUM CHLORIDE 100 ml 100 ML 408 MG IVPB (09:42)
--- NOTE | 2022-08-22 09:52 | ONC.NURNOTE ---
States sometimes rt ear feels like swishing fluid. denies pain. states feels better. enc her to follow up with primary if increase symptoms , pain or unresolved. Per Gay Ahuja APRN. Note left for Dr. Sebastian for a [facility] consult. slight rash on lt edge cheek. no reddness. denies pain or itching. Dhara aware.
[2022-08-22] MEDS: FAMOTIDINE 20 MG, diphenhydrAMINE 50 MG in 0.9 % SODIUM CHLORIDE 100 ml 100 ML 309 MG IVPB (10:02)
[2022-08-22] MEDS: SODIUM CHLORIDE 0.9 % (FLUSH) 10 ML SYRINGE IVF (10:03)
[2022-08-22] MEDS: 0.9 % SODIUM CHLORIDE 250 ml IV (10:03)
[2022-08-22] MEDS: HEPARIN 500 UNIT/5 ML SYRINGE IVF (10:03)
[2022-08-22] MEDS: [UNRECOGNIZED DRUG - OTHER] IV (10:33)
[2022-08-22] MEDS: MICRON FILTER SET IV (10:33)
[2022-08-22] MEDS: IN LINE IV (10:33)
[2022-08-22] MEDS: TUBING PRIMARY IV (10:33)
[2022-08-22] MEDS: PACLITAXEL IV (10:33)
--- NOTE | 2022-08-22 11:28 | ONC.NURNOTE ---
I met with patient in the infusion center to discuss the next phase of her treatment. I went over side effects of AC and Neulasta. Printed information was also provided. Consent obtained. Patient verbalizes understanding.
[2022-08-22] MEDS: CARBOplatin 180 MG, TUBING SECONDARY 1 EACH in 0.9 % SODIUM CHLORIDE 250 ml 250 ML 536 MG IVPB (11:54)
--- NOTE | 2022-08-23 11:54 | ONC.NURNOTE ---
referal sent. apt made for [facility]. 10/15/22 9am
[2022-08-23] MEDS: TBO-FILGRASTIM 300 MCG/0.5 ML INJ SUBCUT (14:44)
[2022-08-24 07:33] LABS: Cortisol, Serum 14.3 ug/dL
[2022-08-29 08:48] LABS: Basophils Absolute Auto 0.03 K/uL (0.00-0.30); Basophils Percent Auto 0.6 % (0.0-3.0); Eosinophils Absolute Auto 0.02 K/uL (0.00-0.50); Eosinophils Percent Auto 0.4 % (0.0-7.0); Hematocrit 34.4 % (33.0-51.0); Hemoglobin* 11.6 gm/dL (12.0-16.0); Immature Granulocytes Abs Auto 0.01 K/uL (0.00-0.30); Immature Granulocytes Pct Auto 0.2 %; Lymphocytes Percent Auto 33.5 % (20-44); Mean Corpuscular HGB Conc 34 gm/dL (32-36); Mean Corpuscular Hemoglobin 33 pg (26-34); Mean Corpuscular Volume 99 fL (80-100); Monocytes Percent Auto 8.2 % (0.0-11.0); Neutrophils Absolute Auto 2.72 K/uL (1.7-7.0); Neutrophils Percent Auto 57.1 % (42.0-72.0); Platelet Count* 193 K/uL (140-440); RDW Coefficient of Variation % 17.5 % (11.5-15.5); Red Blood Count 3.47 m/uL (4.00-5.20); White Blood Count* 4.77 K/uL (4.50-11.00)
[2022-08-29 08:52] LABS: Slide Review Reflex No
[2022-08-29 08:54] LABS: Albumin* 3.8 g/dL (3.3-5.0); Chloride* 107 mmol/L (96-114)
[2022-08-29 08:55] LABS: Potassium* 3.9 mmol/L (3.6-5.1); Sodium* 140 mmol/L (135-149)
[2022-08-29 08:57] LABS: Aspartate Amino Transferase* 27 U/L (12-35); Bilirubin Total* 0.3 mg/dL (0.1-1.5); Carbon Dioxide* 25 mmol/L (20-32); Creatinine* 0.8 mg/dL (0.5-1.5); Est. Creatinine Clearance* 71.84; Estimated Glomerular Filt Rate 89 ml/min; Total Protein* 6.4 g/dL (6.0-8.3)
[2022-08-29 08:58] LABS: Alanine Aminotransferase* 21 U/L (4-35); Alkaline Phosphatase* 63 U/L (40-150); Blood Urea Nitrogen* 18 mg/dL (7-30); Calcium* 9.1 mg/dL (8.4-10.6); Glucose* 109 mg/dL (60-115)
[2022-08-29] MEDS: 0.9 % SODIUM CHLORIDE 250 ml IV ×2 (10:00→12:30)
[2022-08-29] MEDS: PEMBROLIZUMAB 200 MG, TUBING PRIMARY 1 EACH, In-line 0.2 micron filter set 1 EACH in 0.... 216 MG IVPB (10:34)
[2022-08-29] MEDS: PALONOSETRON 0.25 MG/5 ML inj IV (11:15)
[2022-08-29] MEDS: dexAMETHasone 10 MG in 0.9 % SODIUM CHLORIDE 100 ml 100 ML 404 MG IVPB (11:23)
--- NOTE | 2022-08-29 11:27 | ONC.NURNOTE ---
per [facility], Doxil not available. It will be here tomorrow. per YUMIKO Wilson RN Medicare approves generic or trade brand of Doxil.
[2022-08-29] MEDS: FOSAPREPITANT 150 MG inj 150 MG in 0.9 % SODIUM CHLORIDE 250 ml 250 ML 510 MG IVPB (11:41)
[2022-08-29] MEDS: DOXOrubicin 2 MG/ML inj 100 MG IVP (12:19)
[2022-08-29] MEDS: cycloPHOSphamide 1,000 MG, TUBING SECONDARY 1 EACH in 0.9 % SODIUM CHLORIDE 250 ml 250 ML 346.6 MG IV (12:42)
[2022-08-29] MEDS: HEPARIN 500 UNIT/5 ML SYRINGE IVF (17:26)
[2022-08-29] MEDS: SODIUM CHLORIDE 0.9 % (FLUSH) 10 ML SYRINGE IVF (17:26)
[2022-08-30 18:58] LABS: Cortisol, Serum 12.6 ug/dL
--- NOTE | 2022-09-03 15:44 | ONC.NURNOTE ---
Pt requested refill of Compazine; it is working well to manage her CINV. Compazine 5mg PO TID PRN N/V #30 with 1 refill called into preferred pharmacy[facility].
[2022-09-19 08:48] LABS: Basophils Percent Auto 0.5 % (0.0-3.0); Eosinophils Percent Auto 0.2 % (0.0-7.0); Hematocrit 31.2 % (33.0-51.0); Hemoglobin* 10.4 gm/dL (12.0-16.0); Immature Granulocytes Pct Auto 0.7 %; Lymphocytes Percent Auto 32.4 % (20-44); Mean Corpuscular HGB Conc 33 gm/dL (32-36); Mean Corpuscular Hemoglobin 35 pg (26-34); Mean Corpuscular Volume 104 fL (80-100); Monocytes Percent Auto 13.2 % (0.0-11.0); Platelet Count* 505 K/uL (140-440); RDW Coefficient of Variation % 17.8 % (11.5-15.5); Red Blood Count 3.01 m/uL (4.00-5.20); White Blood Count* 4.23 K/uL (4.50-11.00)
[2022-09-19 08:51] LABS: Slide Review Reflex No
[2022-09-19 09:03] LABS: Chloride* 106 mmol/L (96-114)
[2022-09-19 09:04] LABS: Albumin* 3.9 g/dL (3.3-5.0); Potassium* 3.6 mmol/L (3.6-5.1); Sodium* 140 mmol/L (135-149)
[2022-09-19 09:07] LABS: Alanine Aminotransferase* 21 U/L (4-35); Alkaline Phosphatase* 70 U/L (40-150); Aspartate Amino Transferase* 28 U/L (12-35); Bilirubin Total* 0.2 mg/dL (0.1-1.5); Blood Urea Nitrogen* 13 mg/dL (7-30); Calcium* 8.7 mg/dL (8.4-10.6); Carbon Dioxide* 26 mmol/L (20-32); Creatinine* 0.8 mg/dL (0.5-1.5); Est. Creatinine Clearance* 71.03; Estimated Glomerular Filt Rate 89 ml/min; Glucose* 108 mg/dL (60-115); Total Protein* 6.6 g/dL (6.0-8.3)
[2022-09-19] MEDS: 0.9 % SODIUM CHLORIDE 250 ml IV (10:31)
[2022-09-19] MEDS: PEMBROLIZUMAB 200 MG, TUBING PRIMARY 1 EACH, In-line 0.2 micron filter set 1 EACH in 0.... 216 MG IVPB (10:37)
[2022-09-19] MEDS: PALONOSETRON 0.25 MG/5 ML inj IV (11:15)
[2022-09-19] MEDS: dexAMETHasone 10 MG in 0.9 % SODIUM CHLORIDE 100 ml 100 ML 420 MG IVPB (11:15)
[2022-09-19] MEDS: FOSAPREPITANT 150 MG inj 150 MG in 0.9 % SODIUM CHLORIDE 250 ml 250 ML 510 MG IVPB (11:37)
[2022-09-19] MEDS: DOXOrubicin 2 MG/ML inj 100 MG IVP (12:22)
[2022-09-19] MEDS: cycloPHOSphamide 1,000 MG, TUBING SECONDARY 1 EACH in 0.9 % SODIUM CHLORIDE 250 ml 250 ML 346.6 MG IV (12:38)
[2022-09-19] MEDS: HEPARIN 500 UNIT/5 ML SYRINGE IVF (13:42)
[2022-09-19] MEDS: SODIUM CHLORIDE 0.9 % (FLUSH) 10 ML SYRINGE IVF (13:42)
[2022-09-20 20:54] LABS: Cortisol, Serum 12.2 ug/dL
[2022-10-07 14:41] LABS: Basophils Absolute Auto 0.02 K/uL (0.00-0.30); Basophils Percent Auto 0.4 % (0.0-3.0); Hematocrit 30.2 % (33.0-51.0); Hemoglobin* 10.2 gm/dL (12.0-16.0); Immature Granulocytes Abs Auto 0.01 K/uL (0.00-0.30); Immature Granulocytes Pct Auto 0.2 %; Lymphocytes Absolute Auto 1.53 K/uL (0.90-2.90); Lymphocytes Percent Auto 32.9 % (20-44); Mean Corpuscular HGB Conc 34 gm/dL (32-36); Mean Corpuscular Hemoglobin 36 pg (26-34); Mean Corpuscular Volume 106 fL (80-100); Monocytes Percent Auto 22.6 % (0.0-11.0); Neutrophils Absolute Auto 2.04 K/uL (1.7-7.0); Neutrophils Percent Auto 43.9 % (42.0-72.0); Platelet Count* 432 K/uL (140-440); Red Blood Count 2.85 m/uL (4.00-5.20); White Blood Count* 4.65 K/uL (4.50-11.00)
[2022-10-07 14:47] LABS: Slide Review Reflex No
[2022-10-07 15:58] LABS: Albumin* 3.9 g/dL (3.3-5.0); Chloride* 107 mmol/L (96-114); Sodium* 139 mmol/L (135-149)
[2022-10-07 15:59] LABS: Potassium* 3.2 mmol/L (3.6-5.1)
[2022-10-07 16:01] LABS: Alanine Aminotransferase* 19 U/L (4-35); Alkaline Phosphatase* 61 U/L (40-150); Aspartate Amino Transferase* 30 U/L (12-35); Bilirubin Total* 0.2 mg/dL (0.1-1.5); Blood Urea Nitrogen* 13 mg/dL (7-30); Carbon Dioxide* 26 mmol/L (20-32); Creatinine* 0.7 mg/dL (0.5-1.5); Est. Creatinine Clearance* 81.18; Estimated Glomerular Filt Rate 104 ml/min; Glucose* 105 mg/dL (60-115); Total Protein* 6.7 g/dL (6.0-8.3)
[2022-10-07 16:02] LABS: Calcium* 8.8 mg/dL (8.4-10.6)
[2022-10-09 21:26] LABS: Cortisol, Serum 11.3 ug/dL
[2022-10-10 08:21] VITALS: BP 101/68; PULSE 79; RESP 16; TEMP 36.2; O2SAT 98
[2022-10-10] MEDS: PEMBROLIZUMAB 200 MG, TUBING PRIMARY 1 EACH, In-line 0.2 micron filter set 1 EACH in 0.... 216 MG IVPB (09:23)
[2022-10-10] MEDS: 0.9 % SODIUM CHLORIDE 250 ml IV (09:40)
[2022-10-10] MEDS: PALONOSETRON 0.25 MG/5 ML inj IV (09:57)
[2022-10-10] MEDS: dexAMETHasone 10 MG in 0.9 % SODIUM CHLORIDE 100 ml 100 ML 420 MG IVPB (09:58)
[2022-10-10] MEDS: FOSAPREPITANT 150 MG inj 150 MG in 0.9 % SODIUM CHLORIDE 250 ml 250 ML 780 MG IVPB (10:14)
[2022-10-10] MEDS: DOXOrubicin 2 MG/ML inj 100 MG IVP (10:43)
[2022-10-10] MEDS: cycloPHOSphamide 1,000 MG, TUBING SECONDARY 1 EACH in 0.9 % SODIUM CHLORIDE 250 ml 250 ML 329.2 MG IV (11:01)
[2022-10-10] MEDS: HEPARIN 500 UNIT/5 ML SYRINGE IVF (11:53)
[2022-10-10] MEDS: SODIUM CHLORIDE 0.9 % (FLUSH) 10 ML SYRINGE IVF (11:53)
[2022-10-31 08:11] LABS: Basophils Percent Auto 1.5 % (0.0-3.0); Eosinophils Percent Auto 0.7 % (0.0-7.0); Hematocrit 34.7 % (33.0-51.0); Hemoglobin* 11.3 gm/dL (12.0-16.0); Lymphocytes Percent Auto 40.5 % (20-44); Mean Corpuscular HGB Conc 33 gm/dL (32-36); Mean Corpuscular Hemoglobin 35 pg (26-34); Mean Corpuscular Volume 108 fL (80-100); Monocytes Percent Auto 21.9 % (0.0-11.0); Neutrophils Percent Auto 35.4 % (42.0-72.0); Platelet Count* 342 K/uL (140-440); RDW Coefficient of Variation % 14.2 % (11.5-15.5); Red Blood Count 3.22 m/uL (4.00-5.20); White Blood Count* 2.74 K/uL (4.50-11.00)
[2022-10-31 08:20] LABS: Slide Review Reflex Yes
[2022-10-31 08:22] LABS: Albumin* 3.8 g/dL (3.3-5.0); Chloride* 108 mmol/L (96-114); Sodium* 138 mmol/L (135-149)
[2022-10-31 08:23] LABS: Potassium* 3.6 mmol/L (3.6-5.1)
[2022-10-31 08:25] LABS: Alanine Aminotransferase* 23 U/L (4-35); Alkaline Phosphatase* 66 U/L (40-150); Anion Gap 6 mEq/L (7-15); Aspartate Amino Transferase* 34 U/L (12-35); Bilirubin Total* 0.4 mg/dL (0.1-1.5); Blood Urea Nitrogen* 14 mg/dL (7-30); Carbon Dioxide* 24 mmol/L (20-32); Creatinine* 0.8 mg/dL (0.5-1.5); Est. Creatinine Clearance* 71.03; Estimated Glomerular Filt Rate 89 ml/min; Total Protein* 6.4 g/dL (6.0-8.3)
[2022-10-31 08:26] LABS: Glucose* 130 mg/dL (60-115)
[2022-10-31 08:49] LABS: Slide Review Acceptable Review (Acceptable)
[2022-10-31] MEDS: SODIUM CHLORIDE 0.9 % (FLUSH) 10 ML SYRINGE IVF ×2 (10:10→12:23)
[2022-10-31] MEDS: PEMBROLIZUMAB 200 MG, TUBING PRIMARY 1 EACH, In-line 0.2 micron filter set 1 EACH in 0.... 216 MG IVPB (10:10)
[2022-10-31] MEDS: 0.9 % SODIUM CHLORIDE 250 ml IV (10:10)
[2022-10-31] MEDS: PALONOSETRON 0.25 MG/5 ML inj IV (10:40)
[2022-10-31] MEDS: dexAMETHasone 10 MG in 0.9 % SODIUM CHLORIDE 100 ml 100 ML 404 MG IVPB (10:40)
[2022-10-31] MEDS: FOSAPREPITANT 150 MG inj 150 MG in 0.9 % SODIUM CHLORIDE 250 ml 250 ML 780 MG IVPB (11:00)
[2022-10-31] MEDS: DOXOrubicin 2 MG/ML inj 100 MG IVP (11:29)
[2022-10-31] MEDS: cycloPHOSphamide 1,000 MG, TUBING SECONDARY 1 EACH in 0.9 % SODIUM CHLORIDE 250 ml 250 ML 510 MG IV (11:29)
[2022-10-31] MEDS: HEPARIN 500 UNIT/5 ML SYRINGE IVF (12:23)
[2022-11-01 12:33] LABS: Calcium* 8.8 mg/dL (8.4-10.6)
[2022-11-01 23:54] LABS: Cortisol, Serum 19.1 ug/dL
== END 2022-11-24 23:59 | disposition home or self-care (01) ==
LOC: CCIC 08:00
PROVIDERS: Clinical Nurse Specialist; Internal Medicine Hematology & Oncology; PCP Physician Assistant; Visit Provider Internal Medicine Hematology & Oncology
DX: Z51.11 Encounter for antineoplastic chemotherapy (principal); C50.911 Malignant neoplasm of unspecified site of right female breast; Z17.1 Estrogen receptor negative status [ER-]; Z51.12 Encounter for antineoplastic immunotherapy; D70.9 Neutropenia, unspecified; T45.1X5A Adverse effect of antineoplastic and immunosuppressive drugs, initial encounter
CPT/HCPCS: 36415; 36591; 80053; 82533; 84443; 85025; 96372; 96376; 96377; 96411; 96413; 96415; 96417; 99202; 99205; 99211; 99212; 99214; 99215; J2506; J9000; J9070; J1100; J1200; J1447; J1453; J1642; J2469; J7050; J9045; J9267; J9271; S0028

== ENCOUNTER 2023-05-08 12:31 | Outpatient (CLI) | payer OTHER, SELFPAY ==
--- NOTE | 2023-05-08 12:30 | PE_ITS ---
[facility] [address] [address] Phone:?[phone] Fax:?[phone] Referring Physician Information: Vera Sebastian M.D. [address] [address] Phone:?[phone] Fax:?[phone] Patient:Roni Cowart D.O.B:?1970 Sex:?Female Phone:? [facility] MRN:?[id number] Exam Date:?05/08/2023 EXAM: PET/CT EYES TO THIGHS, CANCER RESTAGING CLINICAL INFORMATION: Breast cancer, restaging. TECHNICAL INFORMATION: Helical acquisition of data was obtained from the orbits to the upper thighs with reconstruction of 3.75 mm thick images at 3.[address] data was used for attenuation correction. PET scanning was performed through the same anatomic range 60 minutes following administration of 11.70 mCi of 18-FDG delivered intravenously. The patient's glucose at the time of the injection was 96 mg/dL. PET, CT and PET/CT fusion images are interpreted using a computer viewing workstation. PET, CT and PET/CT fusion images were archived and saved in the patient's permanent medical record. COMPARISON: Chest CT from 01/20/2023, breast MRI from 11/01/2022, PET-CT from 05/21/2022. INTERPRETATION: Head and Neck: There are no abnormal hypermetabolic foci within the head or neck. There is physiologic uptake in the intracranial soft tissues. Chest: Scant subpleural hypermetabolism along the right chest wall (e.g., Se 2 Im 92) has a maximum SUV of 5.09, likely reflecting benign treatment-related changes. There are no other abnormal hypermetabolic foci within the chest. Background mediastinal blood pool uptake has a maximum SUV of 2.64. No lung nodules or masses detected on this free-breathing exam. No intrathoracic lymphadenopathy in terms of size, morphology, or metabolic rate; status post right axillary dissection with no residual/recurrent disease. Left chest port catheter terminates at the cavoatrial junction. 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 Abdomen and Pelvis: There are no abnormal hypermetabolic foci within the abdomen or pelvis. Background hepatic parenchymal uptake has a maximum SUV of 3.37. There is physiologic excretion of radiotracer in the urine and bowel. Atrophic left kidney noted incidentally. Skeleton, Musculature, and Integument: No abnormal hypermetabolic foci within the skeleton. No jonathan osteoblastic or osteolytic disease. CONCLUSION: No abnormal FDG uptake to indicate active malignancy. Benign/expected postoperative appearance of the right breast, chest wall, and axilla. Electronically signed on 05/09/2023 12:07:00 PM by Junior Baker M.D.
== END 2023-05-08 12:32 | disposition home or self-care (01) ==
LOC: RAD 12:31
PROVIDERS: PCP Physician Assistant; Visit Provider Internal Medicine Hematology & Oncology
DX: C50.919 Malignant neoplasm of unspecified site of unspecified female breast (principal)
CPT/HCPCS: 78815; A9552

== ENCOUNTER 2023-06-13 13:26 | Outpatient (RCR) | payer OTHER, SELFPAY ==
--- NOTE | 2022-12-24 14:38 | URNOTE ---
Request received for Pembrolizumab (Keytruda) (J9271). Prior Authorization is approved per [facility] Pembrolizumab (Keytruda) (J9271) approved from 12/19/2022 to 03/22/2023 Auth#[id number]. See scanned authorization re: only 3 month authorization.
--- NOTE | 2022-12-24 15:16 | ONC.NURNOTE ---
Notified pt via phone of Keytruda approval and confirmed lab and infusion appts on file.
[2023-01-07] MEDS: SODIUM CHLORIDE 0.9 % (FLUSH) 10 ML SYRINGE IVF (08:15)
[2023-01-07] MEDS: HEPARIN 500 UNIT/5 ML SYRINGE IVF (08:15)
[2023-01-07 08:21] LABS: Basophils Absolute Auto 0.03 K/uL (0.00-0.30); Basophils Percent Auto 0.6 % (0.0-3.0); Eosinophils Percent Auto 7.7 % (0.0-7.0); Hemoglobin* 12.7 gm/dL (12.0-16.0); Lymphocytes Percent Auto 26.2 % (20-44); Mean Corpuscular HGB Conc 33 gm/dL (32-36); Mean Corpuscular Hemoglobin 32 pg (26-34); Mean Corpuscular Volume 100 fL (80-100); Monocytes Percent Auto 10.1 % (0.0-11.0); Neutrophils Absolute Auto 2.96 K/uL (1.7-7.0); Neutrophils Percent Auto 55.4 % (42.0-72.0); Platelet Count* 322 K/uL (140-440); Red Blood Count 3.92 m/uL (4.00-5.20); White Blood Count* 5.34 K/uL (4.50-11.00)
[2023-01-07 08:31] LABS: Slide Review Reflex No
[2023-01-07 09:15] LABS: Albumin* 4.1 g/dL (3.3-5.0); Chloride* 101 mmol/L (96-114)
[2023-01-07 09:16] LABS: Potassium* 3.9 mmol/L (3.6-5.1); Sodium* 140 mmol/L (135-149)
[2023-01-07 09:18] LABS: Alkaline Phosphatase* 97 U/L (40-150); Anion Gap 14 mEq/L (7-15); Aspartate Amino Transferase* 41 U/L (12-35); Bilirubin Total* 0.4 mg/dL (0.1-1.5); Blood Urea Nitrogen* 12 mg/dL (7-30); Carbon Dioxide* 25 mmol/L (20-32); Creatinine* 0.8 mg/dL (0.5-1.5); Estimated Glomerular Filt Rate 89 ml/min
[2023-01-07 09:19] LABS: Alanine Aminotransferase* 21 U/L (4-35); Calcium* 9.3 mg/dL (8.4-10.6); Glucose* 98 mg/dL (60-115)
[2023-01-08 08:36] VITALS: BP 102/68; PULSE 90; RESP 16; TEMP 36.3; O2SAT 97
[2023-01-08] MEDS: PEMBROLIZUMAB 200 MG, TUBING PRIMARY 1 EACH, In-line 0.2 micron filter set 1 EACH in 0.... 216 MG IVPB (09:11)
[2023-01-08] MEDS: SODIUM CHLORIDE 0.9 % (FLUSH) 10 ML SYRINGE IVF (09:12)
[2023-01-08] MEDS: HEPARIN 500 UNIT/5 ML SYRINGE IVF (09:12)
[2023-01-08] MEDS: 0.9 % SODIUM CHLORIDE 250 ml IV (11:02)
[2023-01-09 05:00] LABS: Cortisol, Serum 11.1 ug/dL
[2023-01-28 13:29] LABS: Basophils Percent Auto 0.7 % (0.0-3.0); Eosinophils Percent Auto 6.9 % (0.0-7.0); Hematocrit 37.7 % (33.0-51.0); Hemoglobin* 12.4 gm/dL (12.0-16.0); Lymphocytes Percent Auto 26.3 % (20-44); Mean Corpuscular HGB Conc 33 gm/dL (32-36); Mean Corpuscular Hemoglobin 31 pg (26-34); Mean Corpuscular Volume 95 fL (80-100); Monocytes Percent Auto 11.4 % (0.0-11.0); Neutrophils Percent Auto 54.7 % (42.0-72.0); Platelet Count* 284 K/uL (140-440); RDW Coefficient of Variation % 12.5 % (11.5-15.5); Red Blood Count 3.95 m/uL (4.00-5.20); White Blood Count* 4.03 K/uL (4.50-11.00)
[2023-01-28 13:33] LABS: Slide Review Reflex No
[2023-01-28 13:42] LABS: Albumin* 4.3 g/dL (3.3-5.0); Chloride* 108 mmol/L (96-114); Potassium* 3.7 mmol/L (3.6-5.1); Sodium* 141 mmol/L (135-149)
[2023-01-28 13:45] LABS: Alanine Aminotransferase* 20 U/L (4-35); Alkaline Phosphatase* 89 U/L (40-150); Anion Gap 7 mEq/L (7-15); Aspartate Amino Transferase* 29 U/L (12-35); Bilirubin Total* 0.3 mg/dL (0.1-1.5); Blood Urea Nitrogen* 13 mg/dL (7-30); Carbon Dioxide* 26 mmol/L (20-32); Creatinine* 0.7 mg/dL (0.5-1.5); Estimated Glomerular Filt Rate 104 ml/min; Glucose* 108 mg/dL (60-115)
[2023-01-29 08:05] VITALS: BP 98/69; PULSE 103; RESP 16; TEMP 36.6; O2SAT 97
[2023-01-29] MEDS: PEMBROLIZUMAB 200 MG, TUBING PRIMARY 1 EACH, In-line 0.2 micron filter set 1 EACH in 0.... 216 MG IVPB (08:54)
[2023-01-30 10:47] LABS: Cortisol, Serum 7.5 ug/dL
[2023-02-19 08:17] LABS: Basophils Percent Auto 0.7 % (0.0-3.0); Eosinophils Percent Auto 5.5 % (0.0-7.0); Hematocrit 38.7 % (33.0-51.0); Hemoglobin* 12.6 gm/dL (12.0-16.0); Lymphocytes Percent Auto 16.1 % (20-44); Mean Corpuscular HGB Conc 33 gm/dL (32-36); Mean Corpuscular Hemoglobin 31 pg (26-34); Mean Corpuscular Volume 95 fL (80-100); Monocytes Percent Auto 13.4 % (0.0-11.0); Neutrophils Percent Auto 64.3 % (42.0-72.0); Platelet Count* 206 K/uL (140-440); RDW Coefficient of Variation % 12.6 % (11.5-15.5); Red Blood Count 4.06 m/uL (4.00-5.20); White Blood Count* 2.92 K/uL (4.50-11.00)
[2023-02-19 08:21] LABS: Slide Review Reflex No
[2023-02-19 08:32] LABS: Chloride* 110 mmol/L (96-114)
[2023-02-19 08:33] LABS: Sodium* 140 mmol/L (135-149)
[2023-02-19 08:35] LABS: Anion Gap 5 mEq/L (7-15); Carbon Dioxide* 25 mmol/L (20-32); Creatinine* 0.8 mg/dL (0.5-1.5); Estimated Glomerular Filt Rate 89 ml/min
[2023-02-19 08:36] LABS: Alanine Aminotransferase* 20 U/L (4-35); Alkaline Phosphatase* 75 U/L (40-150); Aspartate Amino Transferase* 28 U/L (12-35); Bilirubin Total* 0.3 mg/dL (0.1-1.5); Blood Urea Nitrogen* 22 mg/dL (7-30); Calcium* 9.1 mg/dL (8.4-10.6); Glucose* 124 mg/dL (60-115); Total Protein* 6.6 g/dL (6.0-8.3)
[2023-02-19 09:32] LABS: Thyroid Stimulating Hormone* 0.936 uIU/mL (0.270-4.20)
[2023-02-19] MEDS: PEMBROLIZUMAB 200 MG, TUBING PRIMARY 1 EACH, In-line 0.2 micron filter set 1 EACH in 0.... 216 MG IVPB (09:58)
[2023-02-19] MEDS: 0.9 % SODIUM CHLORIDE 250 ml IV (09:59)
[2023-02-19] MEDS: SODIUM CHLORIDE 0.9 % (FLUSH) 10 ML SYRINGE IVF (10:00)
[2023-02-19] MEDS: HEPARIN 500 UNIT/5 ML SYRINGE IVF (10:00)
[2023-02-21 00:41] LABS: Cortisol, Serum 13.7 ug/dL
--- NOTE | 2023-02-27 12:50 | URNOTE ---
Request for Keytruda has been denied as it does not meet criteria to be given in outpatient hospital. It must be given at a clinic office or home infusion.
--- NOTE | 2023-02-28 10:43 | URNOTE ---
Addendum entered by Katie Pires RN 03/12/23 08:09: Approval dates are 02/24/2023-09/08/2023 Original Note: Received approval for Keyangela (J9271) 02/24/23-09/07/2022. Authorization #[id number]
[2023-03-11] MEDS: HEPARIN 500 UNIT/5 ML SYRINGE IVF (12:03)
[2023-03-11] MEDS: SODIUM CHLORIDE 0.9 % (FLUSH) 10 ML SYRINGE IVF (12:03)
[2023-03-12 08:02] VITALS: BP 97/66; PULSE 91; RESP 16; TEMP 36.6; O2SAT 96
[2023-03-12 08:24] LABS: Albumin* 4.2 g/dL (3.3-5.0); Basophils Percent Auto 0.5 % (0.0-3.0); Chloride* 110 mmol/L (96-114); Eosinophils Percent Auto 3.7 % (0.0-7.0); Hematocrit 37.8 % (33.0-51.0); Hemoglobin* 12.4 gm/dL (12.0-16.0); Mean Corpuscular HGB Conc 33 gm/dL (32-36); Mean Corpuscular Hemoglobin 31 pg (26-34); Mean Corpuscular Volume 94 fL (80-100); Monocytes Percent Auto 12.3 % (0.0-11.0); Neutrophils Percent Auto 67.5 % (42.0-72.0); Platelet Count* 254 K/uL (140-440); RDW Coefficient of Variation % 13.5 % (11.5-15.5); Red Blood Count 4.02 m/uL (4.00-5.20); White Blood Count* 3.75 K/uL (4.50-11.00)
[2023-03-12 08:25] LABS: Potassium* 4.2 mmol/L (3.6-5.1); Sodium* 141 mmol/L (135-149)
[2023-03-12 08:27] LABS: Anion Gap 6 mEq/L (7-15); Aspartate Amino Transferase* 49 U/L (12-35); Bilirubin Total* 0.3 mg/dL (0.1-1.5); Carbon Dioxide* 25 mmol/L (20-32); Creatinine* 0.7 mg/dL (0.5-1.5); Estimated Glomerular Filt Rate 104 ml/min; Total Protein* 6.8 g/dL (6.0-8.3)
[2023-03-12 08:28] LABS: Alanine Aminotransferase* 21 U/L (4-35); Alkaline Phosphatase* 89 U/L (40-150); Blood Urea Nitrogen* 19 mg/dL (7-30); Glucose* 106 mg/dL (60-115)
[2023-03-12 08:32] LABS: Slide Review Reflex No
[2023-03-12] MEDS: PEMBROLIZUMAB 400 MG, TUBING PRIMARY 1 EACH, In-line 0.2 micron filter set 1 EACH in 0.... 232 MG IVPB (09:09)
[2023-03-12] MEDS: SODIUM CHLORIDE 0.9 % (FLUSH) 10 ML SYRINGE IVF (09:44)
[2023-03-12] MEDS: HEPARIN 500 UNIT/5 ML SYRINGE IVF (09:44)
[2023-03-12 16:52] LABS: Cortisol, Serum 9.7 ug/dL
[2023-04-14 14:24] LABS: Basophils Percent Auto 0.8 % (0.0-3.0); Eosinophils Percent Auto 4.2 % (0.0-7.0); Hematocrit 37.6 % (33.0-51.0); Hemoglobin* 12.8 gm/dL (12.0-16.0); Lymphocytes Percent Auto 20.7 % (20-44); Mean Corpuscular HGB Conc 34 gm/dL (32-36); Mean Corpuscular Hemoglobin 32 pg (26-34); Mean Corpuscular Volume 93 fL (80-100); Monocytes Percent Auto 13.3 % (0.0-11.0); Platelet Count* 176 K/uL (140-440); Red Blood Count 4.03 m/uL (4.00-5.20); White Blood Count* 3.77 K/uL (4.50-11.00)
[2023-04-14 14:27] LABS: Slide Review Reflex No
[2023-04-14 14:36] LABS: Albumin* 4.3 g/dL (3.3-5.0); Chloride* 107 mmol/L (96-114)
[2023-04-14 14:37] LABS: Potassium* 3.8 mmol/L (3.6-5.1); Sodium* 137 mmol/L (135-149)
[2023-04-14 14:39] LABS: Anion Gap 7 mEq/L (7-15); Aspartate Amino Transferase* 36 U/L (12-35); Bilirubin Total* 0.6 mg/dL (0.1-1.5); Carbon Dioxide* 23 mmol/L (20-32); Creatinine* 0.8 mg/dL (0.5-1.5); Estimated Glomerular Filt Rate 89 ml/min
[2023-04-14 14:40] LABS: Alanine Aminotransferase* 26 U/L (4-35); Alkaline Phosphatase* 102 U/L (40-150); Blood Urea Nitrogen* 18 mg/dL (7-30); Glucose* 115 mg/dL (60-115); Total Protein* 6.9 g/dL (6.0-8.3)
[2023-04-23 08:05] VITALS: BP 102/68; PULSE 80; RESP 18; TEMP 37; O2SAT 99
[2023-04-23] MEDS: PEMBROLIZUMAB 400 MG, TUBING PRIMARY 1 EACH, In-line 0.2 micron filter set 1 EACH in 0.... 232 MG IVPB (08:17)
[2023-04-23] MEDS: SODIUM CHLORIDE 0.9 % (FLUSH) 10 ML SYRINGE IVF ×2 (08:18→08:50)
[2023-04-23] MEDS: 0.9 % SODIUM CHLORIDE 250 ml IV (08:18)
[2023-04-23] MEDS: HEPARIN 500 UNIT/5 ML SYRINGE IVF (08:50)
[2023-05-05 15:07] LABS: Basophils Percent Auto 0.5 % (0.0-3.0); Eosinophils Percent Auto 4.2 % (0.0-7.0); Hematocrit 33.9 % (33.0-51.0); Hemoglobin* 11.5 gm/dL (12.0-16.0); Immature Granulocytes Pct Auto 0.5 %; Lymphocytes Percent Auto 28.2 % (20-44); Mean Corpuscular HGB Conc 34 gm/dL (32-36); Mean Corpuscular Hemoglobin 32 pg (26-34); Mean Corpuscular Volume 95 fL (80-100); Neutrophils Percent Auto 51.6 % (42.0-72.0); Platelet Count* 200 K/uL (140-440); RDW Coefficient of Variation % 17.8 % (11.5-15.5); Red Blood Count 3.56 m/uL (4.00-5.20); White Blood Count* 4.26 K/uL (4.50-11.00)
[2023-05-05 15:08] LABS: Slide Review Reflex No
[2023-05-05] MEDS: HEPARIN 500 UNIT/5 ML SYRINGE IVF (15:08)
[2023-05-05] MEDS: SODIUM CHLORIDE 0.9 % (FLUSH) 10 ML SYRINGE IVF (15:09)
[2023-05-05 15:20] LABS: Albumin* 3.9 g/dL (3.3-5.0); Chloride* 107 mmol/L (96-114); Potassium* 3.4 mmol/L (3.6-5.1); Sodium* 139 mmol/L (135-149)
[2023-05-05 15:22] LABS: Creatinine* 0.8 mg/dL (0.5-1.5); Estimated Glomerular Filt Rate 89 ml/min
[2023-05-05 15:23] LABS: Alanine Aminotransferase* 13 U/L (4-35); Alkaline Phosphatase* 113 U/L (40-150); Anion Gap 8 mEq/L (7-15); Aspartate Amino Transferase* 25 U/L (12-35); Bilirubin Total* 0.4 mg/dL (0.1-1.5); Blood Urea Nitrogen* 19 mg/dL (7-30); Carbon Dioxide* 24 mmol/L (20-32); Glucose* 109 mg/dL (60-115); Total Protein* 6.7 g/dL (6.0-8.3)
--- NOTE | 2023-05-05 16:32 | ONC.NURNOTE ---
Lab results reviewed. Patient informed that they are within parameters to start her Capecitabine 05/06. Overall, patient states she is doing well. She is noticing more fatigue but states she is fighting through it. She had one day of loose stools and managed it with Imodium. She denies any redness or skin breakdown to her hands and feet. Patient has PET/CT on and follow up with Dr. Sebastian 05/12 to review results.
--- NOTE | 2023-05-06 13:15 | ONC.NURNOTE ---
Reviewed labs with Dr. Sebastian. Potassium prescription sent in to pharm on file for K 3.4. LM for pt ok to start Capecitabine cycle and to pickup and begin potassium.
[2023-05-08] MEDS: SODIUM CHLORIDE 0.9 % (FLUSH) 10 ML SYRINGE IVF ×2 (12:31→13:56)
[2023-05-08] MEDS: HEPARIN 500 UNIT/5 ML SYRINGE IVF (13:56)
--- NOTE | 2023-05-19 12:03 | ONC.NURNOTE ---
Patient called stating that she has a plugged ear and she is on vacation out of town. She is wondering if okay to take claritin with her capecitabine. She was told that this is fine if her ear does not improve.
[2023-05-26] MEDS: HEPARIN 500 UNIT/5 ML SYRINGE IVF (12:27)
[2023-05-26] MEDS: SODIUM CHLORIDE 0.9 % (FLUSH) 10 ML SYRINGE IVF (12:27)
[2023-05-26 12:33] LABS: Basophils Percent Auto 0.6 % (0.0-3.0); Eosinophils Percent Auto 1.8 % (0.0-7.0); Hematocrit 35.3 % (33.0-51.0); Hemoglobin* 12.1 gm/dL (12.0-16.0); Lymphocytes Percent Auto 35.5 % (20-44); Mean Corpuscular HGB Conc 34 gm/dL (32-36); Mean Corpuscular Hemoglobin 33 pg (26-34); Mean Corpuscular Volume 97 fL (80-100); Monocytes Percent Auto 13.6 % (0.0-11.0); Neutrophils Percent Auto 48.5 % (42.0-72.0); Platelet Count* 198 K/uL (140-440); RDW Coefficient of Variation % 18.9 % (11.5-15.5); Red Blood Count 3.64 m/uL (4.00-5.20); Slide Review Reflex No; White Blood Count* 3.38 K/uL (4.50-11.00)
[2023-05-26 12:47] LABS: Albumin* 4.2 g/dL (3.3-5.0); Chloride* 107 mmol/L (96-114)
[2023-05-26 12:48] LABS: Potassium* 3.6 mmol/L (3.6-5.1); Sodium* 139 mmol/L (135-149)
[2023-05-26 12:50] LABS: Alkaline Phosphatase* 124 U/L (40-150); Anion Gap 6 mEq/L (7-15); Aspartate Amino Transferase* 31 U/L (12-35); Bilirubin Total* 0.8 mg/dL (0.1-1.5); Blood Urea Nitrogen* 12 mg/dL (7-30); Carbon Dioxide* 26 mmol/L (20-32); Creatinine* 0.7 mg/dL (0.5-1.5); Estimated Glomerular Filt Rate 104 ml/min
[2023-05-26 12:51] LABS: Alanine Aminotransferase* 16 U/L (4-35); Calcium* 9.4 mg/dL (8.4-10.6); Glucose* 98 mg/dL (60-115)
--- NOTE | 2023-05-26 15:52 | ONC.NURNOTE ---
Labs reviewed with Dr. Sebastian. Patient informed that her labs are within parameters to continue Capecitabine 1500 mg x 14 days with 7 days off. Patient will start her next cycle tomorrow. Patient has had a cold the past few weeks but denies fever. Feeling better. Denies any signs or symptoms of hand/foot. Patient confirms plan for Pembrolizumab 06/03 and follow up for consideration of cycle 5 Capecitabine on 06/15.
[2023-06-04 08:04] VITALS: BP 105/63; PULSE 81; RESP 16; TEMP 36.7; O2SAT 98
[2023-06-04] MEDS: PEMBROLIZUMAB 400 MG, TUBING PRIMARY 1 EACH, In-line 0.2 micron filter set 1 EACH in 0.... 232 MG IVPB (08:43)
[2023-06-04] MEDS: 0.9 % SODIUM CHLORIDE 250 ml IV (08:43)
[2023-06-13 13:56] LABS: Basophils Percent Auto 0.3 % (0.0-3.0); Eosinophils Percent Auto 3.2 % (0.0-7.0); Hematocrit 33.6 % (33.0-51.0); Hemoglobin* 11.7 gm/dL (12.0-16.0); Immature Granulocytes Pct Auto 0.3 %; Lymphocytes Percent Auto 36.2 % (20-44); Mean Corpuscular HGB Conc 35 gm/dL (32-36); Mean Corpuscular Hemoglobin 35 pg (26-34); Mean Corpuscular Volume 101 fL (80-100); Monocytes Percent Auto 14.3 % (0.0-11.0); Neutrophils Percent Auto 45.7 % (42.0-72.0); Platelet Count* 184 K/uL (140-440); RDW Coefficient of Variation % 19.2 % (11.5-15.5); Red Blood Count 3.33 m/uL (4.00-5.20); White Blood Count* 3.43 K/uL (4.50-11.00)
[2023-06-13 14:07] LABS: Albumin* 4.1 g/dL (3.3-5.0); Chloride* 107 mmol/L (96-114); Potassium* 3.7 mmol/L (3.6-5.1); Sodium* 139 mmol/L (135-149)
[2023-06-13 14:08] LABS: Slide Review Reflex No
[2023-06-13 14:10] LABS: Alanine Aminotransferase* 20 U/L (4-35); Alkaline Phosphatase* 106 U/L (40-150); Anion Gap 7 mEq/L (7-15); Aspartate Amino Transferase* 32 U/L (12-35); Bilirubin Total* 0.5 mg/dL (0.1-1.5); Blood Urea Nitrogen* 20 mg/dL (7-30); Carbon Dioxide* 25 mmol/L (20-32); Creatinine* 0.8 mg/dL (0.5-1.5); Estimated Glomerular Filt Rate 89 ml/min; Glucose* 96 mg/dL (60-115); Total Protein* 6.9 g/dL (6.0-8.3)
[2023-06-13 14:11] LABS: Calcium* 9.2 mg/dL (8.4-10.6)
[2023-06-13] MEDS: SODIUM CHLORIDE 0.9 % (FLUSH) 10 ML SYRINGE IVF (16:12)
[2023-06-13] MEDS: HEPARIN 500 UNIT/5 ML SYRINGE IVF (16:12)
== END 2023-06-21 23:59 | disposition home or self-care (01) ==
LOC: CCIC 13:26
PROVIDERS: Clinical Nurse Specialist; PCP Physician Assistant; Referring Provider Physician Assistant; Visit Provider Internal Medicine Hematology & Oncology
DX: C50.911 Malignant neoplasm of unspecified site of right female breast (principal); Z17.1 Estrogen receptor negative status [ER-]
CPT/HCPCS: 36415; 36591; 80053; 82533; 84443; 85025; 96365; 96413; 99211; 99212; 99214; 99215; G0463; J1642; J7050; J9271

== ENCOUNTER 2023-09-19 07:26 | Outpatient (CLI) | payer OTHER, SELFPAY ==
--- OUTSIDE RECORDS SUMMARY | 2023-09-19 07:28 | XMS_ITS | Clinical Summary ---
Author Organization [facility] Address [address] [place] [address] Care Team Providers Care Vending Machine Collector Name Role Phone Unassigned, Pcp Primary Care Provider Unavailabl e Source Comments Patient records contain information from all sites at [facility]. For routine questions regarding patient records, call [phone] during business hours, M-F 8:00 AM - 5:00 PM Central Time. Record requests for emergency care only can be directed to [phone] at any time.[facility] Allergies No known active allergies Medications Medication Sig Dispensed Refills Start Date End Date Status hydroCHLOROthiazide (HYDRODIURIL) 12.5 mg tablet Take 1 tablet (12.5 mg total) by mouth daily. 12/12/2022 Active tretinoin (RETIN-A) 0.025 % cream Apply 1 Application topically at bedtime. Apply to face. 0 12/12/2022 Active capecitabine (XELODA) 500 mg tablet 03/20/2023 Active Klor-Con M20 20 mEq ER tablet Take 1 tablet by mouth daily. 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 on 12/17/2022 Pathologic stage from 12/02/2022:No Stage Recommended(ypT0, pN1a, cM0, GX, ER-, AL-, HER2-) - Signed by Laure Curtis M.D. on 12/17/2022 Encounters Date Type Department Care Team Description 08/08/2023 10:00 AM CDT Clinical Support Department of Physical Medicine and Rehabilitation in [place], [place] [address] [place] [phone] Liane Manriquez APRN, C.N.P., D.N.P. Bella Kamara, O.T., CLT-GUY Limitation Of Motion Shoulder Joint Right 08/05/2023 Orders Only Division of Plastic Surgery in [address] [phone] Litzy Kingston APRN, C.N.P., D.N.P. Absence Of Breast Acquired Right (Primary Dx); Cancer Breast Personal History 07/07/2023 4:00 PM CDT Clinical Support Department of Physical Medicine and Rehabilitation in [place], [place] [address] [place] [phone] Liane Manriquez APRN, C.N.P., D.N.P. Bella Kamara R, O.T., CLT-GUY Limitation Of Motion Shoulder Joint Right 06/24/2023 3:00 PM CDT Clinical Support Department of Physical Medicine and Rehabilitation in [place], [place] [address] [place] [phone] Liane Manriquez APRN, Mireya.N.P., D.N.P. Bella Kamara, O.T., CLT-UGY Limitation Of Motion Shoulder Joint Right 06/24/2023 8:00 AM CDT Telemedicine Division of Plastic Surgery in [place], [place] [address] [place] [phone] Sushila Hardy P.A.-C. Follow Up Examination Postoperative Visit (Primary Dx) from Last 3 Months Immunizations Name Administration Dates Next Due HepB (discontinued) adolesce nt/high risk 12/20/2009,11/16/2009 HepB Adult 12/20/2009 HepB, Unspecified 11/09/2009 Influenza, Seasonal, Injectable 12/21/19 10,11/15/2008,01/04/2008,2006,04/30/2006 Influenza, Unspecified 12/20/2009 MMR 01/18/2010,09/06/1971 RZV (SHINGRIX) 03/22/2022 Tdap 03/22/2022,02/26/2007 Family History Medical History Relation Name Comments No Known Problems Brother No Known Problems Daughter Stroke Father Alzheimers disease Maternal Grandfather Breast cancer Maternal Grandmother Niesha Cervical cancer Maternal Grandmother Niesha Skin cancer Maternal Grandmother Niesha unknown type but active Glioblastoma Mother Pat No Known Problems Paternal Grandfather No Known Problems Paternal Grandmother No Known Problems Son Relation Name Status Comments Brother Alive Daughter Alive Father Maternal Grandfather Maternal Grandmother Niesha Alive Mother Pat Paternal Grandfather Paternal Grandmother Son Alive Social History Tobacco Use Types Packs/Day Years Used Date Smoking Tobacco: Former Cigarettes 0 03/10/1991 - 03/10/2011 Smokeless Tobacco: Never Tobacco Cessation:Counseling Given: Not Answered Alcohol Use Standard Drinks/Week Comments Yes 1 (1 standard drink = 0.6 oz pure alcohol) Occasionally not ever week, more like 2 times a month [facility] [employer] Answer Date Recorded In the past 12 months has e [employer] gas, oil, or water [employer] threatened to shut off services in your home? No 06/01/2023 Humiliation, Afraid, Rape, and Kick questionnair e Answer Date Recorded Within the last year, have y ou been afraid of your partner or ex-partner? No 05/17/2022 Within the last year, have y ou been humiliated or emotionally abused in other ways by your partner or ex-partner? No Within the last year, have y ou been kicked, hit, slapped, or otherwise physically hurt by your partner or ex-partner? No 05/17/2022 Within the last year, have y ou been raped or forced to have any kind of sexual activity by your partner or ex-partner? No 05/17/2022 Social Connection and Isolat ion Panel [NHANES] Answer Date Recorded In a typical week, how many times do you talk on the phone with family, friends, or neighbors? More than three times a week 05/17/2022 How often do you get togethe r with friends or relatives? Twice a week 05/17/2022 How often do you attend chur or denominational services? Never 05/17/2022 Do you belong to any clubs o r organizations such as mormon groups, unions, fraternal or athletic groups, or school groups? Yes 05/17/2022 How often do you attend meet ings of the clubs or organizations you belong to? More than 4 times per year 05/17/2022 Are you , , di vorced, , never , or living with a partner? 05/17/2022 AUDIT-C Answer Date Recorded Q1: How often do you have a drink containing alc ohol? 2-4 times a month 05/17/2022 Q2: How many drinks containi ng alcohol do you have on a typical day when you are drinking? 3 or 4 05/17/2022 Q3: How often do you have si x or more drinks on one occasion? Less than monthly 05/17/2022 Overall Financial Resource Strain (CARDIA) Answe r Date Recorded How hard is it for you to pa y for the very basics like food, housing, medical care, and heating? Not very hard 05/17/2022 PHQ-2 Answer Date Recorded PHQ-2 Score 0 03/22/2022 [employer] ional Health - Occupational Stress Questionnaire Answer Date Recorded Do you feel stress - tense, restless, nervous, or anxious, or unable to sleep at night because your mind is troubled all the time - these days? Rather much 05/17/2022 Exercise Vital Sign Answer Date Recorde d On average, how many days pe r week do you engage in moderate to strenuous exercise (like a brisk walk)? 4 days 06/01/2023 On average, how many minutes do you engage in exercise at this level? 30 min 06/01/2023 Hunger Vital Sign Answer Date Recorded Within the past 12 months, y ou worried that your food would run out before you got the money to buy more. Never true 06/01/19 Within the past 12 months, t he food you bought just didn't last and you didn't have money to get more. Never true 06/01/2023 PRAPARE - Transportation Answer Date Re corded In the past 12 months, has l ack of transportation kept you from medical appointments or from getting medications? No 05/09 In the past 12 months, has l ack of transportation kept you from meetings, work, or from getting things needed for daily living? No 06/01/2023 Nutrition Answer Date Recorded Nutrition: EVOO Fat Source No 05/31 On average, how many serving s of fruits and vegetables do you eat per day (serving size is equal to 1 cup or approximately the size of a tennis ball)? 0-2 06/01/2023 Dental Answer Date Recorded Dental: Regular Dentist Yes 05/18/19 Employment Answer Date Recorded Employment status Employed and actively working without restrictions 06/01/2023 Housing Stability Answer Date Recorded What is your living situation today? I have a [facility] place to live 06/01/2023 Education Answer Date Recorded What is the highest level of school you have completed or the highest degree you have received? Associate degree: academic program 05/17/2022 Sex and Gender Information Value Date Recorded Sex Assigned at Female 05/17/2022 8:05 PM LOST AND FOUND CLERK Gender Identity Female 05/17/2022 8:05 PM LOST AND FOUND CLERK Sexual Orientation Straight 05/17/2022 8: 05 PM LOST AND FOUND CLERK Last Filed Vital Signs Vital Sign Reading Time Taken Comments Blood Pressure 106/68 04/07/2023 11:17 AM LOST AND FOUND CLERK Pulse 96 04/07/2023 11:17 AM LOST AND FOUND CLERK Temperature 36.6 ??C (97.9 ??F) 04/07/2023 10:[address] Respiratory Rate 18 04/07/2023 11:17 AM LOST AND FOUND CLERK Oxygen Saturation 97% 04/07/2023 10:46 AM LOST AND FOUND CLERK Inhaled Oxygen Concentration - - Weight 65.4 kg (144 lb 2.9 oz) 04/07/2023 6:45 A M LOST AND FOUND CLERK Height 162 cm (5' 3.78) 12/12/2022 11:51 AM CDT Body Mass Index 24.92 12/12/2022 11:51 AM CDT Plan of Treatment Upcoming Encounters Date Type Department Care Team (Latest Contact Info) Description 09/24/2023 9:00 AM CDT Lab Department of Infusion Therapy in [place], [place] [address] [place] [phone] Litzy Kingston APRN, C.N.P., D.N.P. [address] [place] [phone] 09/24/2023 10:15 AM CDT Appointment Department of Radiology, [facility], in [address] [phone] Sinai Wolfe M.D., M.S. [address] [place] [phone] 09/24/2023 1:00 PM CDT Office Visit Division of Plastic Surgery in [address] [phone] Pillo Ceballos M.D. [address] [place] [phone] 09/25/2023 7:00 AM CDT Clinical Support Department of Physical Medicine and Rehabilitation in [place], [place] [address] [place] [phone] Liane Manriquez APRN, C.N.P., D.N.P. [address] [place] [phone] Bella Kamara O.T., [facility] [address] [place] [phone] 09/29/2023 8:00 AM CDT Hospital Encounter Outpatient Surgery Unit in [address] [phone] Pillo Ceballos M.D. [address] [place] [phone] 09/29/2023 8:00 AM CDT - 09/29/2023 12:30 PM CDT Surgery [facility] [address] [place] [phone] Pillo Ceballos M.D. [address] [place] [phone] REMOVAL TISSUE WINDOW AND SIDING CRAFTSMAN BREAST 10/13/2023 10:30 AM CDT Office Visit Division of Plastic Surgery in [place], [place] [address] [place] [phone] Litzy Kingston APRN, C.N.P., D.N.P. [address] [place] [phone] 12/05/2023 11:30 AM CDT Clinical Communication Virtual Review in [place], [place] 200 [place] [phone] 12/08/2023 2:30 PM CDT Comprehensive Visit Integrative Medicine and Health in [place], [place] [address] [place] [phone] Shazia Meeks, P.A.-C. [address] [place] [phone] Scheduled Procedures Name Priority Associated Diagnoses Date/Ti me REMOVAL TISSUE WINDOW AND SIDING CRAFTSMAN BREAST Absence Of Breast Acquired Right Cancer Breast Personal History 09/29/2023 8:00 AM CDT INJECTION FAT Absence Of Breast Acquired Right Cancer Breast Personal History 09/29/2023 8:00 AM CDT RECONSTRUCTION BREAST WITH IMPLANT Absence Of Breast Acquired Right Cancer Breast Personal History 09/29/2023 8:00 AM CDT REDUCTION BREAST Absence Of Breast Acquired Right Cancer Breast Personal History 09/29/2023 8:00 AM CDT REMOVAL CENTRAL VENOUS CATHETER - PORT Absence Of Breast Acquired Right Cancer Breast Personal History 09/29/2023 8:00 AM CDT Health Maintenance Due Date Last Done Comments CT Colonography 1970 Cologuard 1970 Colonoscopy 1970 Colorectal Cancer Screening 1970 FIT 1970 HIV Screening 1970 Hepatitis C Screening 1970 Lipid (Cholesterol) Screening 1970 Pneumococcal vaccine (0-64 years) (1 of 2 - PCV) 1976 Hepatitis B Vaccines (3 of 3 - 19+ 3-dose series) 05/09/2010 12/20/2009, 12/20/2009, 11/16/2009, Additional history exists Zoster Vaccines (2 of 2) 05/17/2022 03/22/2022 COVID-19 Vaccine (4 - 2022- season) 2022 01/19/2021, 04/27/2020, 03/30/2020 Depression Screening (Annual PHQ-2) 03/10/2023 Influenza Vaccine (#1) 2023 0, 12/20/2009, 11/15/2008, Additional history exists Creatinine Level (Kidney Function Test) 04/01/2024 04/01/2023, 11/29/2022, 05/21/2022 Potassium Level 04/01/2024 04/01/2023, 11/09, 05/21/2022 Sodium Level 04/01/2024 04/01/2023, 11/09, 05/21/2022 Fasting Glucose for Diabetes Screening 04/01/2026 04/01/2023, 11/29/2022, 05/21/2022 DTaP,Tdap,and Td Vaccines (3 - Td or Tdap) 03/22/2032 03/22/2022, 02/26/2007 Mammogram Discontinued 11/01/2022, 10/09, 06/14/2022, Additional history exists HPV Vaccines Aged Out No longer eligi ble based on patient's age to complete this topic Medical Devices Implanted Type Area Supervisor Litharge Device Identifier Shelf Expiration Date Model / Serial / Lot Grft Alld Perf Mdthk 1.6 16x20 - [id number] Implanted:Qty: 1 on 12/02/2022 by Sinai Wolfe M.D., M.S. at [facility] Bone or Tissue Right: Breast [employer] 01/08/2024 [id number] / / [id number] Brst Nacl Tien Lopez 350 - [id number] - [id number] Implanted:Qty: 1 on 12/02/2022 by Sinai Wolfe M.D., M.S. at [facility] Breast Implant Right: Breast [employer] 10/07/2025 SCPX-[id number] / [id number] / [id number] Clp Hrzn Ti 6 Nhi Lopez Mik - [id number] Implanted:Qty: 1 on 12/02/2022 by Sinai Wolfe M.D., M.S. at [facility] Hardware e.g. pins/screws/r ods Right: Breast [employer] [id number] / / Clp Hrzn Ti 6 Clp Sm Red - [id number] Implanted:Qty: 1 on 12/02/2022 by Sinai Wlofe M.D., M.S. at [facility] Hardware e.g. pins/screws/r ods Right: Breast [employer] [id number] / / Clp Hrzn Ti 6 Clp Sm Red - [id number] Implanted:Qty: 1 on 12/02/2022 by Sinai Wolfe M.D., M.S. at [facility] Hardware e.g. pins/screws/r ods Right: Breast [employer] [id number] / / Clp Hrzn Ti 24 Clp Sm Red - [id number] Implanted:Qty: 1 on 12/12/2022 by Sinai Wolfe M.D., M.S. at [facility] Hardware e.g. pins/screws/r ods [employer] [id number] 09/18/2027 [id number] / / [id number] Clp Hrzn Ti 6 Nhi Lopez Mik - [id number] Implanted:Qty: 1 on 12/12/2022 by Sinai Wolfe M.D., M.S. at [facility] Hardware e.g. pins/screws/r ods [employer] [id number] 09/03/2027 [id number] / / [id number] Imaging Marker-04/22/19 Implanted:04/10 (Quantity not on file) Imaging Marker Right: Breast Imaging Marker-04/22/19 Implanted:04/10 (Quantity not on file) Imaging Marker Right: Breast Imaging Marker-04/22/19 Implanted:04/10 (Quantity not on file) Imaging Marker Right: Breast Imaging Marker-04/22/19 Implanted:04/10 (Quantity not on file) Imaging Marker Right: Axilla Implantable Port Implantable Port Left: Chest Procedures Procedure Name Priority Date/Time Associated Diagnosis Comments BASIC METABOLIC PANEL, S/P Routine 04/01/2023 12:26 PM LOST AND FOUND CLERK Absence Of Breast Acquired Right BI BREAST DIAGNOSTIC RIGHT WITH TOMOSYNTHESIS RAD - Routine (most inpatients and all outpatients) 11/01/2022 2:45 PM CDT Malignant Neoplasm Of Overlapping Sites Of Right Female Breast (HCC) from Last 3 Months or Most Recently Relevant to Health Maintenance Results * (ABNORMAL) Basic Metabolic Panel (04/01/2023 12:26 PM LOST AND FOUND CLERK) Potassium, S 4.2 3.6 - 5.2 mmol/L 04/01/2023 1:19 PM LOST AND FOUND CLERK DTL Sodium, S 143 135 - 145 mmol/L 04/01/2023 1:19 PM LOST AND FOUND CLERK DTL Chloride, S 105 98 - 107 mmol/L 04/01/2023 1:19 PM LOST AND FOUND CLERK DTL Bicarbonate, S 25 22 - 29 mmol/L 04/01/2023 1:19 PM LOST AND FOUND CLERK DTL Anion Gap 13 7 - 15 04/01/2023 1:19 PM LOST AND FOUND CLERK DTL BUN (Blood Urea Nitrogen), S 14 6 - 21 mg/dL 04/01/2023 1:19 PM LOST AND FOUND CLERK DTL Creatinine 1.06(H) 0.59 - 1.04 mg/dL 04/01/2023 1:19 PM LOST AND FOUND CLERK DTL Estimated GFR (eGFR) 63 >=60 mL/min/BSA 04/01/2023 1:19 PM LOST AND FOUND CLERK DTL Comment: Estimated GFR calculated using the 2020 CKD_EPI creatinine equation. Calcium, Total, S 9.5 8.6 - 10.0 mg/dL 04/01/2023 1:19 PM LOST AND FOUND CLERK DTL Glucose, S 99 70 - 140 mg/dL 04/01/2023 1:19 PM LOST AND FOUND CLERK DTL Blood (Blood, Venous) 04/01/2023 12:26 PM LOST AND FOUND CLERK 04/01/2023 1:01 PM LOST AND FOUND CLERK Mireya Quintero APRN.N.P., D.N.P. LAB BLO OD ADD-ON [facility] [address] [place] [address], [facility] [address] [place] [address] * (ABNORMAL) BI Breast Diagnostic Right with Tomosynthesis (11/01/2022 2:45 PM CDT) Anatomical Region Laterality Modality Breast, Breast Imaging RST L OS, Breast Imaging ARZ LOS, Breast Imaging FLA LOS Right Mammography 11/01/2022 3:33 PM CDT Impressions 11/01/2022 4:05 PM CDT 1. ??Biopsy-proven malignancy of the right breast is now predominantly hyperechoic, although unable to properly assess treatment response via diagnostic mammogram or ultrasound given size of malignancy and density of breast. 2. ??Right axillary lymph nodes are now morphologically normal-appearing, consistent with complete response to chemotherapy. RECOMMENDATION: ??Clinical Management Consider breast MRI for further evaluation of treatment response as clinically indicated. ASSESSMENT: ??BI-RADS: 6: Known Biopsy-Proven Malignancy. Narrative 11/01/2022 4:05 PM CDT EXAM: ??BI BREAST DIAGNOSTIC RIGHT WITH TOMOSYNTHESIS, BI ULTRASOUND BREAST FOCUSED RIGHT INDICATION: ??Short term interval follow-up; assess treatment response COMPARISON: ??Prior exam(s) were available and reviewed for comparison. DENSITY: ??c. The breast(s) are heterogeneously dense, which may obscure small masses. FINDINGS: ??Right full-field diagnostic mammogram with tomosynthesis performed as a part of this evaluation. Calcific region appears more fragmented compared to prior 04/22/2022 mammogram. Multiple biopsy clips in right breast. Unable to appropriately assess treatment response via diagnostic mammogram and recommend breast MRI for further evaluation as clinically indicated. Targeted ultrasound of the right breast at 11 o'clock 5 cm from the nipple, demonstrates significant change from prior 04/16/2022 ultrasound. Heterogenous hypoechoic biopsy-proven malignancy is now predominantly hyperechoic with no well defined margins, and a small hypoechoic region containing a biopsy clip. ??Unable to appropriately assess treatment response via ultrasound and recommend to consider breast MRI for further evaluation if clinically indicated. Targeted ultrasound of the right axilla demonstrates morphologically normal- appearing lymph nodes which is significantly changed since prior 04/16/2022 ultrasound indicating complete response to chemotherapy.. Procedure Note Raul Alvarez M.D. - 11/01/2022 EXAM: BI BREAST DIAGNOSTIC RIGHT WITH TOMOSYNTHESIS, BI ULTRASOUND BREASTFOCUSED RIGHT INDICATION: Short term interval follow-up; assess treatment response COMPARISON: Prior exam(s) were available and reviewed for comparison. DENSITY: c. The breast(s) are heterogeneously dense, which may obscuresmall masses. FINDINGS: Right full-field diagnostic mammogram with tomosynthesisperformed as a part of this evaluation. Calcific region appears more fragmented compared to prior04/22/2022 mammogram. Multiple biopsy clips in right breast. Unable to appropriately assess treatmentresponse via diagnostic mammogram and recommend breast MRI for further evaluation as clinicallyindicated. Targeted ultrasound of the right breast at 11 o'clock 5 cm from thenipple, demonstrates significant change from prior 04/16/2022 ultrasound. Heterogenous hypoechoicbiopsy-proven malignancy is now predominantly hyperechoic with no well defined margins, and a smallhypoechoic region containing a biopsy clip. Unable to appropriately assess treatment response viaultrasound and recommend to consider breast MRI for further evaluation if clinically indicated. Targeted ultrasound of the right axilla demonstrates morphologicallynormal- appearing lymph nodes which is significantly changed since prior 04/16/2022 ultrasoundindicating complete response to chemotherapy.. IMPRESSION: 1. Biopsy-proven malignancy of the right breast is now predominantlyhyperechoic, although unable to properly assess treatment response via diagnostic mammogram orultrasound given size of malignancy and density of breast. 2. Right axillary lymph nodes are now morphologically normal- appearing,consistent with complete response to chemotherapy. RECOMMENDATION: Clinical Management Consider breast MRI for further evaluation of treatment response asclinically indicated. ASSESSMENT: BI-RADS: 6: Known Biopsy-Proven Malignancy. Sinai Wolfe M.D., M.S. IM BI KRYSTAL ES from Last 3 Months or Most Recently Relevant to Health Maintenance Additional Health Concerns Infection Onset Date Last Indicated Protective Environment 06/06/2023 Advance Directives For more information, please contact: [phone] * Full Code (Latest Code Status on File) Date Activated Date Inactivated Comments 12/12/2022 11:24 AM 12/12/2022 9:43 PM Question Answer Comments Full Code: Not Discussed Due to: Not medically appropriate * Full Code Date Activated Date Inactivated Comments 12/02/2022 5:46 AM 12/02/2022 8:04 PM Question Answer Comments Full Code: Not Discussed Due to: Not medically appropriate Care Teams Vending Machine Collector Relationship Specialty Start Date End Date Unassigned, Pcp PCP - General Family Medicine 03/22/22
--- OUTSIDE RECORDS SUMMARY | 2023-09-19 07:28 | XMS_ITS | Referral Summary ---
Author Organization [facility] Address [address] [place] [phone] Care Team Providers Care Mobility Scooter Repairer Name Role Phone Unassigned, Pcp Primary Care Provider Unavailabl e Source Comments Patient records contain information from all sites at [facility]. For routine questions regarding patient records, call [phone] during business hours, M-F 8:00 AM - 5:00 PM Central Time. Record requests for emergency care only can be directed to [phone] at any time.[facility] Encounters Date Type Department Care Team Description 08/08/2023 10:00 AM CDT Clinical Support Department of Physical Medicine and Rehabilitation in [place], [place] [address] [place] [phone] Liane Manriquez APRN, C.N.P., D.N.P. Bella Kamara OVeronika., T-GUY Limitation Of Motion Shoulder Joint Right 08/05/2023 Orders Only Division of Plastic Surgery in [place], [place] [address] [place] [phone] Litzy Kingston APRN, C.N.P., D.N.P. Absence Of Breast Acquired Right (Primary Dx); Cancer Breast Personal History 07/07/2023 4:00 PM CDT Clinical Support Department of Physical Medicine and Rehabilitation in [place], [place] [address] [place] [phone] Liane Manriquez APRN, C.N.P., Sudha. Bella Kamara, O.TJosé, CLT-GUY Limitation Of Motion Shoulder Joint Right 06/24/2023 3:00 PM CDT Clinical Support Department of Physical Medicine and Rehabilitation in [place], [place] [address] [place] [address] Liane Manriquez APRN, C.N.P., Bella May, O.TJosé, CLT-GUY Limitation Of Motion Shoulder Joint Right 06/24/2023 8:00 AM CDT Telemedicine Division of Plastic Surgery in [place], [place] [address] [place] [phone] Sushila Hardy P.A.-C. Follow Up Examination Postoperative Visit (Primary Dx) from Last 3 Months Allergies No known active allergies Medications Medication [...] from 05/22/2022:Stage IIIB(cT3, cN1(f), cM0, G2, ER-, VA-, HER2-) - Signed by Laure Curtis M.D. on 12/17/2022 Pathologic stage from 12/02/2022:No Stage Recommended(ypT0, pN1a, cM0, GX, ER-, VA-, HER2-) - Signed by Laure Curtis M.D. on 12/17/2022 Immunizations Name Administration Dates Next Due HepB (discontinued) adolesce nt/high risk 12/20/2009,11/16/2009 HepB Adult 12/20/2009 HepB, Unspecified 11/09/2009 Influenza, Seasonal, Injectable 12/21/19 10,11/15/2008,01/04/2008,2006,04/30/2006 Influenza, Unspecified 12/20/2009 MMR 01/18/2010,09/06/1971 RZV (SHINGRIX) 03/22/2022 Tdap 03/22/2022,02/26/2007 Social History Tobacco Use Types Packs/Day Years Used Date Smoking Tobacco: Former Cigarettes 0 03/10/1991 - 03/10/2011 Smokeless Tobacco: Never Tobacco Cessation:Counseling Given: Not Answered Alcohol Use Standard Drinks/Week Comments Yes 1 (1 standard drink = 0.6 oz pure alcohol) Occasionally not ever week, more like 2 times a month [employer] Answer Date Recorded In the past 12 months has e [employer], gas, oil, or water [employer] threatened to shut off services in your [...] 05/17/2022 How often do you attend chur ch or jainism services? Never 05/17/2022 Do you belong to any clubs o r organizations such as moravian groups, unions, fraternal or athletic groups, or [...] Answer Date Recorded PHQ-2 Score 0 03/22/2022 [facility] - Occupational Stress [...] money to buy more. Never true 06/01/19 24 Within the past 12 months, t he [...] your living situation today? I have a [facility] place to live 06/01/2023 Education Answer Date Recorded What is the highest level of school you have completed or the highest degree you have received? Associate degree: academic program 05/17/2022 Sex and Gender Information Value Date Recorded Sex Assigned at Female 05/17/2022 8:05 PM INVENTORY CONTROL ASSOCIATE Gender Identity Female 05/17/2022 8:05 PM INVENTORY CONTROL ASSOCIATE Sexual Orientation Straight 05/17/2022 8: 05 PM INVENTORY CONTROL ASSOCIATE Last Filed Vital Signs Vital Sign Reading Time Taken Comments Blood Pressure 106/68 04/07/2023 11:17 AM INVENTORY CONTROL ASSOCIATE Pulse 96 04/07/2023 11:17 AM INVENTORY CONTROL ASSOCIATE Temperature 36.6 ??C (97.9 ??F) 04/07/2023 10:[address] Respiratory Rate 18 04/07/2023 11:17 AM INVENTORY CONTROL ASSOCIATE Oxygen Saturation 97% 04/07/2023 10:46 AM INVENTORY CONTROL ASSOCIATE Inhaled Oxygen Concentration - - Weight 65.4 kg (144 lb 2.9 oz) 04/07/2023 6:45 A M INVENTORY CONTROL ASSOCIATE Height 162 cm (5' 3.78) 12/12/2022 11:51 AM CDT Body Mass Index 24.92 12/12/2022 11:51 AM CDT Plan of Treatment Upcoming Encounters Date Type Department Care Team (Latest Contact Info) Description 09/24/2023 9:00 AM CDT Lab Department of Infusion Therapy in [place], [place] [address] [place] [address] Litzy Kingston, JORDI, C.N.P., D.N.P. [address] [place] [phone] 09/24/2023 10:15 AM CDT Appointment Department of Radiology, [facility], in [place], [place] [address] [place] [address] Sinai Wolfe M.D., M.S. [address] [place] [phone] 09/24/2023 1:00 PM CDT Office Visit Division of Plastic Surgery in [place], [place] [address] [place] [phone] Pillo Ceballos M.D. [address] [place] [phone] 09/25/2023 7:00 AM CDT Clinical Support Department of Physical Medicine and Rehabilitation in [place], [place] [address] [place] [phone] Liane Manriquez APRN, C.N.P., D.N.P. [address] [place] [phone] Bella Kamara O.T., [facility] [address] [place] [phone] 09/29/2023 8:00 AM CDT Hospital Encounter Outpatient Surgery Unit in [place], [place] [address] [place] [phone] Pillo Ceballos M.D. [address] [place] [phone] 09/29/2023 8:00 AM CDT - 09/29/2023 12:30 PM CDT Surgery [facility] [address] [place] [address] Pillo Ceballos M.D. 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 [address] [place] [phone] 12/05/2023 11:30 AM CDT Clinical Communication Virtual Review in [place], [place] 200 [place] [phone] 12/08/2023 2:30 PM CDT Comprehensive Visit Integrative Medicine and Health in [place], [place] [address] [place] [phone] Shazia Meeks, PJoséALuis [address] [place] [phone] Scheduled Procedures Name Priority Associated Diagnoses Date/Ti me REMOVAL TISSUE DRAFTING INSTRUCTOR BREAST Absence Of Breast Acquired Right Cancer [...] Breast Personal History 09/29/2023 8:00 AM CDT Medical Devices Implanted Type Area Production Recorder Device Identifier Shelf Expiration Date Model / Serial / Lot Melodie Ferro Mdthk 1.6 16x20 - [id number] Implanted:Qty: 1 on 12/02/2022 by Sinai Wolfe M.D., M.S. at [facility] Bone or Tissue Right: Breast [employer] 01/08/2024 [id number] / / [id number] Brst Nacl Rnd 350cc - [id number] - [id number] Implanted:Qty: 1 on 12/02/2022 by Sinai Wolfe M.D., M.S. at [facility] Breast Implant Right: Breast [employer] 10/07/2025 [id number]-[id number] / [id number] / [id number] Clp Hrzn Ti 6 Nhi Lopez Mik - [id number] Implanted:Qty: 1 on 12/02/2022 by Sinai Wolfe M.D., M.S. at [facility] Hardware e.g. pins/screws/r ods Right: Breast [employer] [id number] / / Clp Hrzn Ti 6 Clp Sm Red - [id number] Implanted:Qty: 1 on 12/02/2022 by Sinai Wolfe M.D., M.S. at [facility] Hardware e.g. pins/screws/r ods Right: Breast [employer] [id number] / / Clp Hrzn Ti 6 Clp Sm Red - [id number] Implanted:Qty: 1 on 12/02/2022 by Sinai Wolfe M.D., M.S. at [facility] Hardware e.g. pins/screws/r ods Right: Breast [employer] [id number] / / Clp Hrzn Ti 24 Clp Sm Red - [id number] Implanted:Qty: 1 on 12/12/2022 by Sinai Wolfe M.D., M.S. at [facility] Hardware e.g. pins/screws/r ods [employer] [id number] 09/18/2027 [id number] / / [id number] Clp Hrzn Ti 6 Nhi Lopez Mik - [id number] Implanted:Qty: 1 on 12/12/2022 by Sinai Wolfe M.D., M.S. at [facility] Hardware e.g. pins/screws/r ods [employer] [id number] 09/03/2027 [id number] / / [id number] Imaging Marker-2/13/20 23 Implanted:04/10 (Quantity not on file) Imaging Marker [...] METABOLIC PANEL, S/P Routine 04/01/2023 12:26 PM INVENTORY CONTROL ASSOCIATE Absence Of Breast Acquired Right BI BREAST DIAGNOSTIC RIGHT WITH TOMOSYNTHESIS RAD - Routine (most inpatients and all outpatients) 11/01/2022 2:45 PM CDT Malignant Neoplasm Of Overlapping Sites Of Right Female Breast (HCC) from Last 3 Months or Most Recently Relevant to Health Maintenance Results * (ABNORMAL) Basic Metabolic Panel (04/01/2023 12:26 PM INVENTORY CONTROL ASSOCIATE) Potassium, S 4.2 3.6 - 5.2 mmol/L 04/01/2023 1:19 PM INVENTORY CONTROL ASSOCIATE DTL Sodium, S 143 135 - 145 mmol/L 04/01/2023 1:19 PM INVENTORY CONTROL ASSOCIATE DTL Chloride, S 105 98 - 107 mmol/L 04/01/2023 1:19 PM INVENTORY CONTROL ASSOCIATE DTL Bicarbonate, S 25 22 - 29 mmol/L 04/01/2023 1:19 PM INVENTORY CONTROL ASSOCIATE DTL Anion Gap 13 7 - 15 04/01/2023 1:19 PM INVENTORY CONTROL ASSOCIATE DTL BUN (Blood Urea Nitrogen), S 14 6 - 21 mg/dL 04/01/2023 1:19 PM INVENTORY CONTROL ASSOCIATE DTL Creatinine 1.06(H) 0.59 - 1.04 mg/dL 04/01/2023 1:19 PM INVENTORY CONTROL ASSOCIATE DTL Estimated GFR (eGFR) 63 >=60 mL/min/BSA 04/01/2023 1:19 PM INVENTORY CONTROL ASSOCIATE DTL Comment: Estimated GFR calculated using the 2020 CKD_EPI creatinine equation. Calcium, Total, S 9.5 8.6 - 10.0 mg/dL 04/01/2023 1:19 PM INVENTORY CONTROL ASSOCIATE DTL Glucose, S 99 70 - 140 mg/dL 04/01/2023 1:19 PM INVENTORY CONTROL ASSOCIATE DTL Blood (Blood, Venous) 04/01/2023 12:26 PM INVENTORY CONTROL ASSOCIATE 04/01/2023 1:01 PM INVENTORY CONTROL ASSOCIATE Liane Manriquez APRN, C.N.P., D.N.P. LAB BLO OD ADD-ON [facility] [address] [place] [address], [facility] [address] [place] [address] * (ABNORMAL) BI Breast Diagnostic Right with [...] Known Biopsy-Proven Malignancy. Sinai Wolfe M.D., M.S. IMG BI KRYSTAL ES from Last 3 Months or Most Recently Relevant to Health Maintenance Additional Health Concerns Infection Onset Date Last Indicated Protective Environment 06/06/2023 Advance Directives For more information, please contact: [phone] * Full Code (Latest Code Status on File) Date Activated Date Inactivated Comments 12/12/2022 11:24 AM 12/12/2022 9:43 PM Question Answer Comments Full Code: Not Discussed Due to: Not medically appropriate * Full Code Date Activated Date Inactivated Comments 12/02/2022 5:46 AM 12/02/2022 8:04 PM Question Answer Comments Full Code: Not Discussed Due to: Not medically appropriate Care Teams Mobility Scooter Repairer Relationship Specialty Start Date End Date Unassigned, Pcp PCP - General Family Medicine 03/22/22
--- OUTSIDE RECORDS SUMMARY | 2023-09-19 07:28 | XMS_ITS | Encounter Summary ---
Author Organization [facility] Address [address] [place] [address] Care Team Providers Care Defense Attorney Name Role Phone Unassigned, Pcp Primary Care Provider Unavailabl e Reason for Visit * Occupational Therapy (Routine) - Authorized Specialty Diagnoses / Procedures Referred By Fiona peck Referred To Contact Diagnoses Limitation Of Motion Shoulder Joint Right Procedures OT Ongoing Treatment Liane Manriquez APRN, C.N.P., D.N.P. [address] [place] [phone] [facility] Referral ID Status Reason Start Date Expiration Date V isits Requested Visits Authorized [id number] Authorized 06/06/2023 06/05/2024 6 6 Encounter Details Date Type Department Care Team (Latest Contact Info) Description 06/16/2023 4:00 PM CDT Clinical Support Department of Physical Medicine and Rehabilitation in [place], [place] [address] [place] [phone] Liane Manriquez APRN, C.N.P., D.N.P. [address] [place] [phone] Bella Kamara O.T., CLT-GUY [address] [place] [phone] Limitation Of Motion Shoulder Joint Right Social History Tobacco Use Types Packs/Day Years Used Date Smoking Tobacco: Former Cigarettes 0 03/10/1991 - 03/10/2011 Smokeless Tobacco: Never Alcohol Use Standard Drinks/Week Comments Yes 1 (1 standard drink = 0.6 oz pure alcohol) Occasionally not ever week, more like 2 times a month [facility] [employer] Answer Date Recorded In the past 12 months has [facility] [employer], gas, oil, or water [employer] threatened to shut off services in your [...] week 05/17/2022 How often do you attend [facility] or anabaptist services? Never 05/17/2022 Do you belong to any clubs o r organizations such as yarsanism groups, unions, fraternal or athletic groups, or [...] Answer Date Recorded PHQ-2 Score 0 03/22/2022 [facility] - Occupational Stress Questionnaire Answer Date Recorded [...] your living situation today? I have a [facility] place to live 06/01/2023 Education Answer Date Recorded What is the highest level of school you have completed or the highest degree you have received? Associate degree: academic program 05/17/2022 Sex and Gender Information Value Date Recorded Sex Assigned at Female 05/17/2022 8:05 PM TONGUE AND GROOVE MACHINE FEEDER Gender Identity Female 05/17/2022 8:05 PM TONGUE AND GROOVE MACHINE FEEDER Sexual Orientation Straight 05/17/2022 8: 05 PM TONGUE AND GROOVE MACHINE FEEDER documented as of this encounter Progress Notes * Bella Kamara O.T., CLT-GUY - 06/16/2023 4:00 PM CDT Occupational Therapy Cancer Rehabilitation Outpatient Progress Note Patient's Name: Alison Cowart Referring Provider: Liane Manriquez APRN, C.N.PJosé, D.N.P. Rehab Diagnosis: 1. Limitation Of Motion Shoulder Joint Right Reason for Referral: Follow-up, re-evaluation upper extremity range of motion History of Present Illness: Right breast cancer invasive ductal carcinoma s/p neoadjuvant chemotherapy, right mastectomy with TE placement and R SLNB on 12/02/22 and right ALND on 12/12/22. [id number] fractions of radiation March 01, 2023. She had fat grafting on 04/07/2023. Onset Date: 12/12/22 Payor: [employer] / Plan: [employer] OPEN ACCESS / Product Type: PPO / SUBJECTIVE Patient/Caregiver Goals: improve shoulder function Patient reports she performed a stretches over the weekend Total Visit Count: 4 OBJECTIVE Right shoulder range of motion post session: Flexion 170, abduction 110, external rotation 85. Chest wall: Palpable thickened tissue/muscle/myofascial restriction with trigger points in the pectoralis complex specifically axilla and superior to breast mound. TREATMENT Trigger point releases over the pectoralis major and minor, up through the axilla towards the clavicle as she has scar tissue that is palpable. Positioned patient in side-lying and supine to work on shoulder girdle mobilization as well as trigger points along the scapula. Patient questions right shoulder in different degrees of flexion and abduction. Performed myofascial release techniques in axilla and lateral trunk. Performed home stretching program as follows: 1. Wall pushups 5 reps alternating with shoulder traction off pull-up bar 2 reps/30 second hold/2 sets 2. Supine pectoralis stretch 3. Supine overhead flexion stretch 4. Standing external rotation stretch. Had patient practice some gentle trigger point release as long the pectoralis muscle using a tennis ball. 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 Slowly improving her range of motion. Developing home program for her to maintain range of motion achieved in therapy. Functional Goals and Timeframes: Goal #1: Patient to have at least 160?? of right shoulder flexion 130?? of abduction and 90?? of external rotation within 6 weeks Goal #1 Status: Progressing Goal #2: Patient will demonstrate full pain free range of motion in bilateral upper extremities. Goal #2 Status: Progressing Plan TREATMENT PLAN Number of Visits: up to 6 visits Plan: Plan of care initiated Plan Comments: Patient will participate in weekly therapy to improve right shoulder range of motionfor 2-3 weeks Treatment interventions may include: Therapeutic exercise, Manual therapy, Ultrasound OT: Time Spent with Patient Therapeutic Interventions Manual Therapy (min): 31 min Therapeutic Exercise (min): 15 min Time Tracking Total Timed Units (min): 46 min Total Treatment Time (min): 46 min Bella Kamara O.T., CLT-LANA documented in this encounter Plan of Treatment Upcoming Encounters Date Type Department Care Team (Latest Contact Info) Description 09/24/2023 9:00 AM CDT Lab Department of Infusion Therapy in [place], [place] [address] [place] [phone] Litzy Kingston APRN, C.N.P., D.N.P. [address] [place] [phone] 09/24/2023 10:15 AM CDT Appointment Department of Radiology, [facility], in [place], [place] [address] [place] [address] Sinai Wolfe M.D., M.S. [address] [place] [phone] 09/24/2023 1:00 PM CDT Office Visit Division of Plastic Surgery in [place], [place] [address] [place] [phone] Pillo Ceballos M.D. [address] [place] [phone] 09/25/2023 7:00 AM CDT Clinical Support Department of Physical Medicine and Rehabilitation in [place], [place] [address] [place] [phone] Liane Manriquez APRN, C.N.P., D.N.P. [address] [place] [phone] Bella Kamara O.T., [facility] [address] [place] [phone] 09/29/2023 8:00 AM CDT Hospital Encounter Outpatient Surgery Unit in [place], [place] [address] [place] [phone] Pillo Ceballos M.D. [address] [place] [phone] 09/29/2023 8:00 AM CDT - 09/29/2023 12:30 PM CDT Surgery [facility] [address] [place] [phone] Pillo Ceballos M.D. [address] [place] [phone] REMOVAL TISSUE CONTINUOUS PROCESS ROTARY DRUM TANNER BREAST 10/13/2023 10:30 AM CDT Office Visit Division of Plastic Surgery in [place], [place] [address] [place] [phone] Litzy Kingston APRN, C.N.P., D.N.P. [address] [place] [phone] 12/05/2023 11:30 AM CDT Clinical Communication Virtual Review in [place], [place] [address] [place] [phone] 12/08/2023 2:30 PM CDT Comprehensive Visit [facility]ative [facility] and Health in [place], [place] [address] [place] [phone] Shazia Meeks P.A.-C. [address] [place] [phone] Scheduled Procedures Name Priority Associated Diagnoses Date/Ti me REMOVAL TISSUE CONTINUOUS PROCESS ROTARY DRUM TANNER BREAST Absence Of Breast Acquired Right Cancer [...] Breast Personal History 09/29/2023 8:00 AM CDT documented as of this encounter Visit Diagnoses Diagnosis Limitation Of Motion Shoulder Joint Right Absence Of Breast Acquired Right Cancer Breast Personal History documented in this encounter Additional Health Concerns Infection Onset Date Last Indicated Resolved Time Protective Environment 06/06/2023 06/06/2023 documented as of this encounter Care Teams Defense Attorney Relationship Specialty Start Date End Date Unassigned, Pcp PCP - General Family Medicine 03/22/22 documented as of this encounter
--- OUTSIDE RECORDS SUMMARY | 2023-09-19 07:28 | XMS_ITS | Encounter Summary ---
Author Organization [facility] Address [address] [place] [address] Care Team Providers Care Hospitality Host Name Role Phone Unassigned, Pcp Primary Care Provider Unavailabl e Reason for Referral * Outpatient (Routine) - Authorized Specialty Diagnoses / Procedures Referred By Contac t Referred To Contact Plastic Surgery Litzy Kingston APRN, C.N.P., D.N.P. [address] [place] [phone] [facility] Referral ID Status Reason Start Date Expiration Date V isits Requested Visits Authorized [id number] Authorized 08/05/2023 02/03/2025 1 1 Scheduling Instructions Schedule with Litzy Amaral first, otherwise Liane or Dora if Litzy B not available * Outpatient (Routine) - Authorized Specialty Diagnoses / Procedures Referred By Contac t Referred To Contact Plastic Surgery Litzy Kingston APRN, C.N.P., D.N.P. [address] [place] [phone] [facility] Referral ID Status Reason Start Date Expiration Date V isits Requested Visits Authorized [id number] Authorized 08/05/2023 02/03/2025 [address] Ceballos on 09/23 at 1pm, override Encounter Details Date Type Department Care Team (Late st Contact Info) Description 08/05/2023 Orders Only Division of Plastic Surgery in [place], [place] [address] [place] [address] Litzy Kingston APRN, C.N.P., D.N.P. [address] [place] [address] Absence Of Breast Acquired Right (Primary Dx); Cancer Breast Personal History Social History Tobacco Use Types Packs/Day Years Used Date Smoking Tobacco: Former Cigarettes 0 03/10/1991 - 03/10/2011 Smokeless Tobacco: Never Alcohol Use Standard Drinks/Week Comments Yes 1 (1 standard drink = 0.6 oz pure alcohol) Occasionally not ever week, more like [address] [facility] [address] Rightities Answer Date Recorded In the past 12 months has [facility] electric, gas, oil, or water [employer] threatened to shut off services in your [...] often do you attend chur ch or buddhism services? Never 05/17/2022 Do you belong to any clubs o r organizations such as samaritan groups, unions, fraternal or athletic groups, or [...] Answer Date Recorded PHQ-2 Score 0 03/22/2022 [facility] - Occupational Stress [...] your living situation today? I have a [facility] place to live 06/01/2023 Education Answer Date Recorded What is the highest level of school you have completed or the highest degree you have received? Associate degree: academic program 05/17/2022 Sex and Gender Information Value Date Recorded Sex Assigned at Female 05/17/2022 8:05 PM OPERATORS SCHOOL MANAGER Gender Identity Female 05/17/2022 8:05 PM OPERATORS SCHO[employer] MANAGER Sexual Orientation Straight 05/17/2022 8: 05 PM OPERATORS SCHOOL MANAGER documented as of this encounter Plan of Treatment Upcoming Encounters Date Type Department Care Team (Latest Contact Info) Description 09/24/2023 9:00 AM CDT Lab Department of Infusion Therapy in [place], [place] 200 [place] [phone] Litzy Kingston APRN, C.N.P., D.N.P. [address] [place] [phone] 09/24/2023 10:15 AM CDT Appointment Department [facility] in [place], [place] [address] [place] [phone] Sinai Wolfe M.D., M.S. [address] [place] [phone] 09/24/2023 1:00 PM CDT Office Visit Division of Plastic Surgery in [place], [place] [address] [place] [phone] Pillo Ceballos M.D. [address] [place] [phone] 09/25/2023 7:00 AM CDT Clinical Support Department of Physical Medicine and Rehabilitation in [place], [place] [address] [place] [phone] Liane Manriquez APRN, C.N.PJosé, D.N.P. [address] [place] [phone] Bella Kamara O.T., [facility] [address] [place] [phone] 09/29/2023 8:00 AM CDT Hospital Encounter Outpatient Surgery Unit in [place], [place] [address] [place] [phone] Pillo Ceballos M.D. [address] [place] [phone] 09/29/2023 8:00 AM CDT - 09/29/2023 12:30 PM CDT Surgery [facility] [address] [place] [phone] Pillo Ceballos M.D. [address] [place] [phone] REMOVAL TISSUE CONTACT LENS FITTER BREAST 10/13/2023 10:30 AM CDT Office Visit Division of Plastic Surgery in [place], [place] [address] [place] [phone] Litzy Kingston APRN, C.N.P., D.N.P. [address] [place] [phone] 12/05/2023 11:30 AM CDT Clinical Communication Virtual Review in [place], [place] [address] [place] [phone] 12/08/2023 2:30 PM CDT Comprehensive Visit Integrative Medicine and Health in [place], [place] [address] [place] [address] Shazia Meeks P.A.-C. [address] [place] [phone] Scheduled Orders Name Type Priority Associated Diagnoses Orde r Schedule Basic Metabolic Panel Lab Routine Absence Of Breast Acquired Right Cancer Breast Personal History Expected: 09/24/2023, Expires: 08/04/2024 CBC with Differential, Blood Lab Routine Absence Of Breast Acquired Right Cancer Breast Personal History Expected: 09/24/2023, Expires: 11/04/2024 Scheduled Procedures Name Priority Associated Diagnoses Date/Ti me REMOVAL TISSUE CONTACT LENS FITTER BREAST Absence Of Breast Acquired Right Cancer [...] Breast Personal History 09/29/2023 8:00 AM CDT Scheduled Referrals Name Type Priority Associated Diagnoses Orde r Schedule Plastic Surgery Pre Op (clinic) Outpatient Referral Routine Expected: 09/24/2023, Expires: 11/04/2024 Plastic Surgery office visit (clinic) Outpatient Referral Routine Expected: 10/13/2023, Expires: 11/04/2024 documented as of this encounter Visit Diagnoses Diagnosis Absence Of Breast Acquired Right Cancer Breast Personal History Absence Of Breast Acquired Right- Primary Cancer Breast Personal History Absence Of Breast Acquired Right Cancer Breast Personal History documented in this encounter Additional Health Concerns Infection Onset Date Last Indicated Resolved Time Protective Environment 06/06/2023 06/06/2023 documented as of this encounter Care Teams Hospitality Host Relationship Specialty Start Date End Date Unassigned, Pcp PCP - General Family Medicine 03/22/22 documented as of this encounter
--- OUTSIDE RECORDS SUMMARY | 2023-09-19 07:28 | XMS_ITS | Encounter Summary ---
Author Organization [facility] Address [address] [place] [phone] Care Team Providers Care Middle [employer] English Teacher Name Role Phone Unassigned, Pcp Primary Care Provider Unavailabl e Reason for Visit * Occupational Therapy (Routine) - Authorized Specialty Diagnoses / Procedures Referred By Fiona peck Referred To Contact Diagnoses Limitation Of Motion Shoulder Joint Right Procedures OT Ongoing Treatment Liane Manriquez APRN, C.N.P., D.N.P. [address] [place] [phone] [facility] Referral ID Status Reason Start Date Expiration Date V isits Requested Visits Authorized [id number] Authorized 06/06/2023 06/05/2024 6 6 Encounter Details Date Type Department Care Team (Latest Contact Info) Description 07/07/2023 4:00 PM CDT Clinical Support Department of Physical Medicine and Rehabilitation in [place], [place] [address] [place] [phone] Liane Manriquez APRN, C.N.P., D.N.P. [address] [place] [phone] Bella Kamara O.T., CLT-GUY [address] [place] [phone] Limitation Of Motion Shoulder Joint Right Social History Tobacco Use Types Packs/Day Years Used Date Smoking Tobacco: Former Cigarettes 0 03/10/1991 - 03/10/2011 Smokeless Tobacco: Never Alcohol Use Standard Drinks/Week Comments Yes 1 (1 standard drink = 0.6 oz pure alcohol) Occasionally not ever week, more like 2 times a month [facility] [employer] 2000ities Answer Date Recorded In the past 12 months has [facility] [employer], gas, oil, or water [employer] threatened to shut off services in your [...] week 05/17/2022 How often do you attend [facility] or bahai services? Never 05/17/2022 Do you belong to any clubs o r organizations such as cheondoism groups, unions, fraternal or athletic groups, or [...] Answer Date Recorded PHQ-2 Score 0 03/22/2022 [facility] - Occupational Stress Questionnaire Answer Date Recorded [...] your living situation today? I have a [facility] place to live 06/01/2023 Education Answer Date Recorded What is the highest level of school you have completed or the highest degree you have received? Associate degree: academic program 05/17/2022 Sex and Gender Information Value Date Recorded Sex Assigned at Female 05/17/2022 8:05 PM SCALE SHOOTER Gender Identity Female 05/17/2022 8:05 PM SCALE SHOOTER Sexual Orientation Straight 05/17/2022 8: 05 PM SCALE SHOOTER documented as of this encounter Progress Notes * Bella Kamara O.T., T-GUY - 07/07/2023 4:00 PM CDT Occupational Therapy Cancer Rehabilitation/ Lymphedema Outpatient Progress Note Patient's Name: Alison Cowart Referring Provider: Liane Manriquez APRN C.N.PJosé, D.N.P. Rehab Diagnosis: 1. Limitation Of Motion Shoulder Joint Right Reason for Referral: Follow-up, re-evaluation upper extremity range of motion History of Present Illness: Right breast cancer invasive ductal carcinoma s/p neoadjuvant chemotherapy, right mastectomy with TE placement and R SLNB on 12/02/22 and right ALND on 12/12/22. [id number] fractions of radiation March 01, 2023. She had fat grafting on 04/07/2023. Onset Date: 12/12/22 Payor: [employer] / Plan: [employer] OPEN ACCESS / Product Type: PPO / SUBJECTIVE Patient/Caregiver Goals: improve shoulder function Patient reports she ran her 5 K. Total Visit Count: 6 OBJECTIVE Post session range of motion right upper extremity: Flexion 165, external rotation 90, abduction 120. Palpable thickened tissue/muscle/myofascial restriction with trigger points in pectoralis complex TREATMENT Positioned patient in supine/side-lying with shoulder in different degrees of flexion and abductionworking on trigger point releases across the pectoralis attachment and superior to the breast mound. Also perform shoulder girdle mobilization moving scapula and trunk proximally for intercostals. Scar releases in axilla, tissue bending. Followed this with a home program: 1. 5-10 wall pushups/external rotation shoulder stretch on wall 30 second hold/ 3 sets 2. 3-5 seconds pull up/isometric/hang from pull-up bar and full flexion for 30 seconds/3 sets 3. Wide Y hang from pull-up bar /30 seconds/3 reps 4. Supine pectoralis stretch 30 seconds/3 reps 5. Open heart yoga pose 3-5 minute. Added supine chest flies 10 reps/5 lb weight/3 sets. Recommend patient continue with the following upper extremity strengthening program 3 days a week which we reviewed today: 1. Bicep curls 2. Overhead triceps strength 3. Seated reverse flies 4. Shoulder abduction. Shoulder groups she can start with 5 lb and biceps triceps start with 8-10 lb. Plan to follow-up with patient in 4 weeks assess range of motion and home program. Take bio impedance Assessment Very pleasant, active 52-year-old woman who was independent with home stretching program right upper extremity as well as strengthening program. Plan to follow- up with patient in 4 weeks to ensure she is able to maintain range of motion achieved over the last few weeks of therapy. Modify home program as needed Functional Goals and Timeframe's: Goal #1: Patient to have at least 160?? of right shoulder flexion 130?? of abduction and 90?? of external rotation within 6 weeks Goal #1 Status: Progressing Goal #2: Patient will demonstrate full pain free range of motion in bilateral upper extremities. Goal #2 Status: Progressing Plan TREATMENT PLAN Number of Visits: up to 6 visits Plan: Plan of care initiated Plan Comments: Follow up for 4 weeks Treatment interventions may include: Therapeutic exercise, Manual therapy, Ultrasound OT: Time Spent with Patient 59 minutes: Manual therapy x3 TherEx x1 Bella Kamara O.T., CLT-LANA documented in this encounter Plan of Treatment Upcoming Encounters Date Type Department Care Team (Latest Contact Info) Description 09/24/2023 9:00 AM CDT Lab Department of Infusion Therapy in [place], [place] [address] [place] [phone] Litzy Kingston, JORDI, C.N.P., D.N.P. [address] [place] [phone] 09/24/2023 10:15 AM CDT Appointment Department of Radiology, [facility], in [place], [place] [address] [place] [phone] FelicitautSinai peck M.D., M.S. [address] [place] [phone] 09/24/2023 1:00 PM CDT Office Visit Division of Plastic Surgery in [place], [place] [address] [place] [phone] Pillo Ceballos M.D. [address] [place] [phone] 09/25/2023 7:00 AM CDT Clinical Support Department of Physical Medicine and Rehabilitation in [place], [place] [address] [place] [phone] Liane Manriquez APRN, C.N.P., D.N.P. [address] [place] [phone] Bella Kamara O.T., [facility] [address] [place] [phone] 09/29/2023 8:00 AM CDT Hospital Encounter Outpatient Surgery Unit in [place], [place] [address] [place] [phone] Pillo Ceballos M.D. [address] [place] [phone] 09/29/2023 8:00 AM CDT - 09/29/2023 12:30 PM CDT Surgery [facility] [address] [place] [phone] Pillo Ceballos M.D. [address] [place] [phone] REMOVAL TISSUE MARKETING PRODUCTION COORDINATOR BREAST 10/13/2023 10:30 AM CDT Office Visit Division of Plastic Surgery in [place], [place] [address] [place] [phone] Litzy Kingston, JORDI, C.N.P., D.N.P. [address] [place] [phone] 12/05/2023 11:30 AM CDT Clinical Communication Virtual Review in [place], [place] 200 [place] [address] 12/08/2023 2:30 PM CDT Comprehensive Visit [facility]ative [facility] and Health in [place], [place] [address] [place] [phone] Shazia Meeks P.A.-C. [address] [place] [phone] Scheduled Procedures Name Priority Associated Diagnoses Date/Ti me REMOVAL TISSUE MARKETING PRODUCTION COORDINATOR BREAST Absence Of Breast Acquired Right Cancer [...] documented as of this encounter Care Teams [employer] English Teacher Relationship Specialty Start Date End Date Unassigned, Pcp PCP - General Family Medicine 03/22/22 documented as of this encounter
--- OUTSIDE RECORDS SUMMARY | 2023-09-19 07:28 | XMS_ITS | Encounter Summary ---
Author Organization [facility] Address [address] [place] [address] Care Team Providers Care Outside Deliverer Name Role Phone Unassigned, Pcp Primary Care Provider Unavailabl e Reason for Visit * Outpatient (Routine) - Closed Specialty Diagnoses / Procedures Referred By Fiona peck Referred To Contact Plastic Surgery Sushila Hardy P.A.-C. [address] [place] [phone] [facility] Referral ID Status Reason Start Date Expiration Date Visits Re quested Visits Authorized [id number] Closed 04/28/2023 10/27/2024 1 1 Encounter Details Date Type Department Care Team (Latest Contact Info) Description 06/24/2023 8:00 AM CDT Telemedicine Division of Plastic Surgery in [place], [place] [address] [place] [phone] Sushila Hardy P.A.-C. [address] [place] [phone] Follow Up Examination Postoperative Visit (Primary Dx) Social History Tobacco Use Types Packs/Day Years Used Date Smoking Tobacco: Former Cigarettes 0 03/10/1991 - 03/10/2011 Smokeless Tobacco: Never Alcohol Use Standard Drinks/Week Comments Yes 1 (1 standard drink = 0.6 oz pure alcohol) Occasionally not ever week, more like 2 times a month [facility] Utilities Answer Date Recorded In the past 12 months has th e electric, gas, oil, or water company threatened to shut off services in your [...] often do you attend chur ch or lutheran services? Never 05/17/2022 Do you belong to any clubs o r organizations such as jewish groups, unions, fraternal or athletic groups, or [...] Answer Date Recorded PHQ-2 Score 0 03/22/2022 [facility] of Occupat ional [facility] - Occupational Stress Questionnaire Answer Date Recorded [...] your living situation today? [facility] 06/01/2023 Education Answer Date Recorded What is the highest level of school you have completed or the highest degree you have received? Associate degree: academic program 05/17/2022 Sex and Gender Information Value Date Recorded Sex Assigned at Female 05/17/2022 8:05 PM PERSONALIZED LIVING MANAGER NURSE Gender Identity Female 05/17/2022 8:05 PM PERSONALIZED LIVING MANAGER NURSE Sexual Orientation Straight 05/17/2022 8: 05 PM PERSONALIZED LIVING MANAGER NURSE documented as of this encounter Progress Notes * Sushila Hardy P.A.-C. - 06/24/2023 8:00 AM CDT VIDEO VISIT - pt not seen in clinic SUBJECTIVE CHIEF COMPLAINT / REASON FOR VISIT 1. underwent following procedures performed by Dr. Ceballos on 04/07/2023 Fat grafting to right breast only from bilateral upper abd and flanks 130cc to right chest Exparel infiltration abd and flanks 2. Routine postop check 3. History of radiation right breast and I connected today via video visit. She states that she has healed nicely after latest operation. She reports tightness in the left irradiated breast. 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 She denies signs/symptoms of infection, increase in size of her right breast or otherwise difficulties. She denies pain. She reports some numbness where liposuction was performed and was wondering if this is normal. She reports that she has reached out to Dr. Ceballos's team and is on the surgical list for her next surgery. She has no concerns. PHYSICAL EXAM - Due to nature of the visit, only visual inspection of the operated sites was performed. General: She is alert and orient x3. She does not appear to be in acute distress. She is very pleasant. Breast: Right breast incision nicely healed. Overall, nicely healed tissues from recent fat grafting. All stab incisions have healed fully. No evidence of an infection. All liposuction areas have healed nicely, no gross abnormalities. All stab incisions have healed fully. ASSESSMENT / PLAN CHIEF COMPLAINT / REASON FOR VISIT 1. underwent following procedures performed by Dr. Ceballos on 04/07/2023 Fat grafting right breast only from bilateral upper abd and flanks 130cc to right chest Exparel infiltration abd and flanks 2. Routine postop check 3. History of radiation right breast It was a pleasure talking to today. She has healed very nicely after latest operation. I reassured her that numbness that she is feeling in liposuction areas is within realm of normal and with time this will improve/resolve. She reports that she is on the list for her next surgery. She is still on chemotherapy which she will finish sometime in September. From plastic surgery standpoint, thereare no restrictions. I have encouraged her to continue with PT/OT to help with radiation induced tightness. Signs/symptoms of an infection were reviewed with the patient and she was instructed to call us immediately if any of these occur. Pt is aware that [facility] surgeons recommend prophylactic antibiotics anytime she is having any dental/invasive procedures due to her having an implant/s. Patient was instructed to contact us should she have any questions or concerns. All questions were asked and answered per patient report. It was an absolute pleasure talking to PATIENT EDUCATION Ready to learn, no apparent learning barriers were identified; learning preferences include listening. Explained diagnosis and treatment plan; patient expressed understanding of the content. documented in this encounter Plan of Treatment Upcoming Encounters Date Type Department Care Team (Latest Contact Info) Description 09/24/2023 9:00 AM CDT Lab Department of Infusion Therapy in [place], [place] [address] [place] [phone] Litzy Kingston, JORDI, C.N.P., D.N.P. [address] [place] [phone] 09/24/2023 10:15 AM CDT Appointment Department of Radiology, [facility], in [place], [place] [address] [place] [phone] Sinai Wolfe M.D., M.S. [address] [place] [phone] 09/24/2023 1:00 PM CDT Office Visit Division of Plastic Surgery in [place], [place] [address] [place] [phone] Pillo Ceballos M.D. [address] [place] [phone] 09/25/2023 7:00 AM CDT Clinical Support Department of Physical Medicine and Rehabilitation in [place], [place] [address] [place] [phone] Liane Manriquez APRN, Mireya.N.P., D.N.P. [address] [place] [phone] Bella Kamara O.T., [facility] [address] [place] [phone] 09/29/2023 8:00 AM CDT Hospital Encounter Outpatient Surgery Unit in [place], [place] [address] [place] [phone] Pillo Ceballos M.D. [address] [place] [phone] 09/29/2023 8:00 AM CDT - 09/29/2023 12:30 PM CDT Surgery [facility] [address] [place] [phone] Pillo Ceballos M.D. [address] [place] [phone] REMOVAL TISSUE BILLET HEATER OPERATOR BREAST 10/13/2023 10:30 AM CDT Office Visit Division of Plastic Surgery in [address] [phone] Litzy Kingston APRN, Mireya.N.P., D.N.P. [address] [place] [phone] 12/05/2023 11:30 AM CDT Clinical Communication Virtual Review in [place], [place] 200 [place] [phone] 12/08/2023 2:30 PM CDT Comprehensive Visit [facility] in [address] [phone] Shazia Meeks P.A.-C. [address] [place] [phone] Scheduled Procedures Name Priority Associated Diagnoses Date/Ti me REMOVAL TISSUE BILLET HEATER OPERATOR BREAST Absence Of Breast Acquired Right Cancer [...] as of this encounter Visit Diagnoses Diagnosis Follow Up Examination Postoperative Visit- Primary Absence Of Breast Acquired Right Cancer Breast Personal History documented in this encounter Additional Health Concerns Infection Onset Date Last Indicated Resolved Time Protective Environment 06/06/2023 06/06/2023 documented as of this encounter Care Teams Outside Deliverer Relationship Specialty Start Date End Date Unassigned, Pcp PCP - General Family Medicine 03/22/22 documented as of this encounter
--- OUTSIDE RECORDS SUMMARY | 2023-09-19 07:28 | XMS_ITS ---
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 on 12/17/2022 Pathologic stage from 12/02/2022:No Stage Recommended(ypT0, pN1a, cM0, GX, ER-, AK-, HER2-) - Signed by Laure Curtis M.D. on 12/17/2022 Current Oncology Plans Pembrolizumab ( Every 3 weeks ) ( Oncology )* Plan Start Date:03/16/2023 Plan Provider:Laure Curtis M.D. 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 PEMBROLIZUMAB ORDERABLE ROUNDED (ADULT) Vascular Access Patency - Implanted Vascular Access Device (IVAD) Venous Non-Valved* Plan Start Date:01/20/2023 Plan Provider:Vera Sebastian M.D. Linked Problems Malignant Neoplasm Of Overla pping Sites Of Right Female Breast (HCC) Treatment Medications No medications scheduled. Past Plans Hematology / Oncology Treatment 1 Plan Name Start Date Discontinue Date Treatment Medications Discontinue Reason Plan Provider Cycles Capecitabine ( Breast ) 12/20/19 23 12/18/2022 capecitabine (Xeloda) Not Effective Laure Curtis M.D. Treatment not started PACLitaxel / CARBOplatin AUC 1.5 / Pembrolizumab 3 08/02/2022 CARBOplatin (Paraplatin)PA CLitaxel (TaxoL)pembrol izumab (Keytruda) Unlisted Shazia Meeks, P.A.-C. Treatment not started Radiation Treatments * Plan Last Treated On Elapsed Days Fractions Treated Prescribed Fraction Dose Prescribed Total Dose [id number] 02/27/2023 35 25 of 25 200 cGy 5,000 cGy Reference Point Last Treated On Elapsed Days Session Dose Total Dose [id number] 02/27/2023 35 200 cGy 5,000 cGy
--- OUTSIDE RECORDS SUMMARY | 2023-09-19 07:28 | XMS_ITS | Encounter Summary ---
Author Organization [facility] Address [address] [place] [id number] Care Team Providers Care Optometry Assistant Name Role Phone Unassigned, Pcp Primary Care Provider Unavailabl e Reason for Visit * Occupational Therapy (Routine) - Authorized Specialty Diagnoses / Procedures Referred By Fiona peck Referred To Contact Diagnoses Limitation Of Motion Shoulder Joint Right Procedures OT Ongoing Treatment Liane Manriquez APRN, C.N.P., D.N.P. [address] [place] [phone] [facility] Referral ID Status Reason Start Date Expiration Date V isits Requested Visits Authorized [id number] Authorized 06/06/2023 06/05/2024 6 6 Encounter Details Date Type Department Care Team (Latest Contact Info) Description 08/08/2023 10:00 AM CDT Clinical Support Department of Physical Medicine and Rehabilitation in [place], [place] [address] [place] [phone] Liane Manriquez APRN, C.N.P., D.N.P. [address] [place] [phone] Bella Kamara O.T., CLT-GUY [address] [place] [phone] Limitation Of Motion Shoulder Joint Right Social History Tobacco Use Types Packs/Day Years Used Date Smoking Tobacco: Former Cigarettes 0 03/10/1991 - 03/10/2011 Smokeless Tobacco: Never Alcohol Use Standard Drinks/Week Comments Yes 1 (1 standard drink = 0.6 oz pure alcohol) Occasionally not ever week, more like 2 times a month [facility] [employer] Answer Date Recorded In the past 12 months has [facility] [employer], gas, oil, or water [employer] threatened to shut off services in your [...] week 05/17/2022 How often do you attend [facility] or adventist services? Never 05/17/2022 Do you belong to any clubs o r organizations such as hoahaoism groups, unions, fraternal or athletic groups, or [...] Answer Date Recorded PHQ-2 Score 0 03/22/2022 [facility] - Occupational Stress Questionnaire Answer Date [...] your living situation today? I have a [facility] place to live 06/01/2023 Education Answer Date Recorded What is the highest level of school you have completed or the highest degree you have received? Associate degree: academic program 05/17/2022 Sex and Gender Information Value Date Recorded Sex Assigned at Female 05/17/2022 8:05 PM BRAIDER SETTER Gender Identity Female 05/17/2022 8:05 PM BRAIDER SETTER Sexual Orientation Straight 05/17/2022 8: 05 PM BRAIDER SETTER documented as of this encounter Progress Notes * Bella Kamara O.T., CLT-GUY - 08/08/2023 10:00 AM CDT Occupational Therapy Cancer Rehabilitation Outpatient Progress Note Patient's Name: Alison Cowart Referring Provider: Liane Manriquez APRN, C.N.PJosé, D.N.P. Rehab Diagnosis: 1. Limitation Of Motion Shoulder Joint Right Reason for Referral: Follow-up, re-evaluation upper extremity range of motion last seen 1 month ago History of Present Illness: Right breast cancer invasive ductal carcinoma s/p neoadjuvant chemotherapy, right mastectomy with TE placement and R SLNB on 12/02/22 and right ALND on 12/12/22. [id number] fractions of radiation March 01, 2023. She had fat grafting on 04/07/2023. Onset Date: 12/12/22 Payor: [employer] / Plan: [employer] OPEN ACCESS / Product Type: PPO / SUBJECTIVE Patient/Caregiver Goals: improve shoulder function Patient reports she has been busy traveling hiking has not been as consistent with her stretches and strengthening program. Total Visit Count: 7 OBJECTIVE Right shoulder range of motion: Flexion 170, external rotation 90, abduction 110. 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 She does have some joint capsule tightness that was easily reduced with joint mobilization. TREATMENT Positioned patient in side-lying and supine worked on trigger point releases across the pectoralis complex and into the axilla. Performed shoulder girdle mobilization with proximal scapular mobility for intercostals. After manual techniques I took her to the gym and she worked on self traction stretch off parallel bars and pull-up bar, external rotation stretch in door frame. Prolonged stretches holding for at least 30 seconds. Reviewed with patient importance of doing pushups or chest flies tocontract the muscle belly at least 2-3 days a week. Very motivated. Plan to see prior to fat grafting and then will see 6 weeks post fat grafting to ensure she is progressing with her range of motion. 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 She improves her right shoulder range of motion by about 10?? post manual techniques but is maintaining her range of motion for the most part. She does have some initial tightness with external rotation that improve with joint mobilization indicating capsular tightness as well. Will follow-up with patient 1 time before fat grafting/implant exchange. She has independent home program Functional Goals and Timeframes: Goal #1: Patient [...] Plan: Plan of care initiated Plan Comments: Follow-up 1 time prior to fat grafting Treatment interventions may include: Therapeutic exercise, Manual therapy, Ultrasound 8 minutes ther exercise,manual therapy 28 minutes . Bella Kamara O.T., CLT-LANA documented in this encounter Plan of Treatment Upcoming Encounters Date Type Department Care Team (Latest Contact Info) Description 09/24/2023 9:00 AM CDT Lab Department of Infusion Therapy in [place], [place] [address] [place] [phone] Litzy Kingston APRN, C.N.P., D.N.P. [address] [place] [phone] 09/24/2023 10:15 AM CDT Appointment Department of Radiology, [facility], in [place], [place] [address] [place] [phone] Sinai Wolfe M.D., M.S. [address] [place] [phone] 09/24/2023 1:00 PM CDT Office Visit Division of Plastic Surgery in [place], [place] [address] [place] [phone] Pillo Ceballos M.D. [address] [place] [phone] 09/25/2023 7:00 AM CDT Clinical Support Department of Physical Medicine and Rehabilitation in [place], [place] [address] [place] [phone] Liane Manriquez APRN, C.N.P., D.N.P. [address] [place] [phone] Bella Kamara O.T., [facility] [address] [place] [phone] 09/29/2023 8:00 AM CDT Hospital Encounter Outpatient Surgery Unit in [place], [place] [address] [place] [phone] Pillo Ceballos M.D. [address] [place] [phone] 09/29/2023 8:00 AM CDT - 09/29/2023 12:30 PM CDT Surgery [facility] [address] [place] [phone] Pillo Ceballos M.D. [address] [place] [phone] REMOVAL TISSUE MULTICUT LINE OPERATOR BREAST 10/13/2023 10:30 AM CDT Office Visit Division of Plastic Surgery in [place], [place] [address] [place] [phone] Litzy Kingston APRN, C.N.P., D.N.PJosé [address] [place] [phone] 12/05/2023 11:30 AM CDT Clinical Communication Virtual Review in [place], [place] [address] [place] [phone] 12/08/2023 2:30 PM CDT Comprehensive Visit Integrative Medicine and Health in [place], [place] [address] [place] [phone] Shazia Meeks P.A.-C. [address] [place] [phone] Scheduled Procedures Name Priority Associated Diagnoses Date/Ti me REMOVAL TISSUE MULTICUT LINE OPERATOR BREAST Absence Of Breast Acquired Right [...] Breast Acquired Right Cancer Breast Personal History Limitation Of Motion Shoulder Joint Right Absence Of Breast Acquired Right Cancer Breast Personal History documented in this encounter Additional Health Concerns Infection Onset Date Last Indicated Resolved Time Protective Environment 06/06/2023 06/06/2023 documented as of this encounter Care Teams Optometry Assistant Relationship Specialty Start Date End Date Unassigned, Pcp PCP - General Family Medicine 03/22/22 documented as of this encounter
--- OUTSIDE RECORDS SUMMARY | 2023-09-19 07:28 | XMS_ITS | Encounter Summary ---
Author Organization [facility] Address [address] [place] [phone] Care Team Providers Care Branch Controller Name Role Phone Unassigned, Pcp Primary Care Provider Unavailabl e Reason for Visit * Occupational Therapy (Routine) - Authorized Specialty Diagnoses / Procedures Referred By Fiona peck Referred To Contact Diagnoses Limitation Of Motion Shoulder Joint Right Procedures OT Ongoing Treatment Liane Manriquez APRN, C.N.P., D.N.P. [address] [place] [phone] [facility] Referral ID Status Reason Start Date Expiration Date V isits Requested Visits Authorized [id number] Authorized 06/06/2023 06/05/2024 6 6 Encounter Details Date Type Department Care Team (Latest Contact Info) Description 06/24/2023 3:00 PM CDT Clinical Support Department of Physical Medicine and Rehabilitation in [place], [place] [address] [place] [phone] Liane Manriquez APRN, C.N.P., D.N.P. [address] [place] [phone] Bella Kamara O.T., CLT-GUY [address] [place] [phone] Limitation Of Motion Shoulder Joint Right Social History Tobacco Use Types Packs/Day Years Used Date Smoking Tobacco: Former Cigarettes 0 03/10/1991 - 03/10/2011 Smokeless Tobacco: Never Alcohol Use Standard Drinks/Week Comments Yes 1 (1 standard drink = 0.6 oz pure alcohol) Occasionally not ever week, more like 2 times a month [facility] [employer] Answer Date Recorded In the past 12 months has [facility] [employer], gas, oil, or water [employer] threatened to shut off services in your [...] week 05/17/2022 How often do you attend [facility] or [facility] services? Never 05/17/2022 Do you belong to any clubs o r organizations such as protestant groups, unions, fraternal or athletic groups, or [...] Answer Date Recorded PHQ-2 Score 0 03/22/2022 [facility] - Occupational Stress Questionnaire Answer Date [...] your living situation today? I have a [facility] place to live 06/01/2023 Education Answer Date Recorded What is the highest level of school you have completed or the highest degree you have received? Associate degree: academic program 05/17/2022 Sex and Gender Information Value Date Recorded Sex Assigned at Female 05/17/2022 8:05 PM BLOW MOLDER Gender Identity Female 05/17/2022 8:05 PM BLOW MOLDER Sexual Orientation Straight 05/17/2022 8: 05 PM BLOW MOLDER documented as of this encounter Progress Notes * Bella Kamara O.T., T-GUY - 06/24/2023 3:00 PM CDT Occupational Therapy Cancer Rehabilitation/ Lymphedema [...] on 12/02/22 and right ALND on 12/12/22. [id number] fractions of radiation March 01, 2023. She had fat grafting on 04/07/2023. Onset Date: 12/12/22 Payor: [employer] / Plan: [employer] OPEN ACCESS / Product Type: PPO / SUBJECTIVE Patient/Caregiver Goals: improve shoulder function Patient reports she continues to train for a 10 K. She is performing her stretches as instructed per report Total Visit Count: 5 OBJECTIVE Post session right shoulder range of motion: Flexion 170, abduction 118, external rotation 90. Initial flexion approximately 155 and abduction about 90, external rotation 75 Right chest wall: Palpable thickened tissue/myofascial restriction with trigger points typical of radiation fibrosis at dural attachment and superior to breast mound. TREATMENT Ultrasounds at 1.2 w per cm2 100% over pectoralis attachment on humerus. 8 minutes Positioned patient in supine/side-lying with shoulder in different degrees of flexion and abduction working on trigger point releases across the pectoralis [...] reps 5. Open heart yoga pose 3-5 minutes Patient continues to see her local physical therapist 1 time a week. She will continue with home program and I will follow-up with her in 2 weeks to see if she can maintain range of motion achieved today. Home Exercise Program/Education: [employer] image handout provided Assessment Pleasant 52-year-old woman with significant myofascial/muscle restriction typical of radiation fibrosis right chest wall that is limiting her shoulder range of motion. Her shoulder range of motion has improved over the last couple of weeks and now she will continue with a home program to maintain achieved gain. Will follow-up with patient in 2 weeks Functional Goals and Timeframe's: Goal #1: Patient [...] Plan: Plan of care initiated Plan Comments: Plan to follow up in 2 weeks, assess range of motionbefore therapty tpo obtain baseline measures Treatment interventions may include: Therapeutic exercise, Manual therapy, Ultrasound OT: Time Spent with Patient Modalities Ultrasound (min): 8 min Therapeutic Interventions Manual Therapy (min): 34 min Therapeutic Exercise (min): 15 min Time Tracking Total Timed Units (min): 57 min Total Treatment Time (min): 57 min Bella Kamara O.T., CLT-LANA documented in this encounter Plan of Treatment Upcoming Encounters Date Type Department Care Team (Latest Contact Info) Description 09/24/2023 9:00 AM CDT Lab Department of Infusion Therapy in [place], [place] [address] [place] [phone] Litzy Kingston, JORDI, C.N.P., D.N.P. [address] [place] [phone] 09/24/2023 10:15 AM CDT Appointment Department of Radiology, [facility], in [place], [place] [address] [place] [phone] Sinai Wolfe M.D., M.S. [address] [place] [phone] 09/24/2023 1:00 PM CDT Office Visit Division of Plastic Surgery in [place], [place] [address] [place] [phone] Pillo Ceballos M.D. [address] [place] [phone] 09/25/2023 7:00 AM CDT Clinical Support Department of Physical Medicine and Rehabilitation in [place], [place] [address] [place] [phone] Liane Manriquez APRN, Mireya.N.P., D.N.P. [address] [place] [phone] Bella Kamara O.T., [facility] [address] [place] [phone] 09/29/2023 8:00 AM CDT Hospital Encounter Outpatient Surgery Unit in [place], [place] [address] [place] [phone] Pillo Ceballos M.D. [address] [place] [phone] 09/29/2023 8:00 AM CDT - 09/29/2023 12:30 PM CDT Surgery [facility] [address] [place] [phone] Pillo Ceballos M.D. [address] [place] [phone] REMOVAL TISSUE FLASHER ADJUSTER BREAST 10/13/2023 10:30 AM CDT Office Visit Division of Plastic Surgery in [place], [place] [address] [place] [phone] Litzy Kingston, JORDI, C.N.P., D.N.P. [address] [place] [phone] 12/05/2023 11:30 AM CDT Clinical Communication Virtual Review in [place], [place] [address] [place] [phone] 12/08/2023 2:30 PM CDT Comprehensive Visit [facility] in [place], [place] [address] [place] [phone] Shazia Meeks, PJoséAJosé-CJosé [address] [place] [phone] Scheduled Procedures Name Priority Associated Diagnoses Date/Ti me REMOVAL TISSUE FLASHER ADJUSTER BREAST Absence Of Breast Acquired Right Cancer [...] documented as of this encounter Care Teams Branch Controller Relationship Specialty Start Date End Date Unassigned, Pcp PCP - General Family Medicine 03/22/22 documented as of this encounter
--- OUTSIDE RECORDS SUMMARY | 2023-09-19 07:28 | XMS_ITS ---
Author Organization [facility] Address [address] [place] [address] Care Team Providers Care Box Shook Patcher Name Role Phone Unavailable Unavailable Unavailable Surgery Details Not on file Complications Check Surgery Details section. Procedure Estimated Blood Loss Check Surgery Details section. Procedure Findings Check Surgery Details section. Procedure Specimens Taken Check Surgery Details section.
--- OUTSIDE RECORDS SUMMARY | 2023-09-19 07:29 | XMS_ITS | Encounter Summary ---
Author Organization [facility] Address [address] [place] [phone] Care Team Providers Care Manager Salt Name Role Phone Unassigned, Pcp Primary Care Provider Unavailabl e Reason for Visit * Occupational Therapy (Routine) - Authorized Specialty Diagnoses / Procedures Referred By Fiona peck Referred To Contact Diagnoses Limitation Of Motion Shoulder Joint Right Procedures OT Ongoing Treatment Liane Manriquez APRN, C.N.P., D.N.P. [address] [place] [phone] [facility] Referral ID Status Reason Start Date Expiration Date V isits Requested Visits Authorized [id number] Authorized 06/06/2023 06/05/2024 6 6 Encounter Details Date Type Department Care Team (Latest Contact Info) Description 06/13/2023 4:00 PM CDT Clinical Support Department of Physical Medicine and Rehabilitation in [place], [place] [address] [place] [phone] Liane Manriquez APRN, C.N.P., D.N.P. [address] [place] [phone] Bella Kamara O.T., CLT-GUY [address] [place] [phone] Limitation Of Motion Shoulder Joint Right Social History Tobacco Use Types Packs/Day Years Used Date Smoking Tobacco: Former Cigarettes 0 03/10/1991 - 03/10/2011 Smokeless Tobacco: Never Alcohol Use Standard Drinks/Week Comments Yes 1 (1 standard drink = 0.6 oz pure alcohol) Occasionally not ever week, more like 2 times a month [facility] [employer] Answer Date Recorded In the past 12 months has [facility] [email or web address], gas, oil, or water [employer] threatened to shut off services in [...] do you attend [facility] or jew services? Never 05/17/2022 Do you belong to any clubs o r organizations such as restorationism groups, unions, fraternal or athletic groups, or [...] Answer Date Recorded PHQ-2 Score 0 03/22/2022 [facility] - Occupational Stress Questionnaire Answer [...] your living situation today? I have a [facility] place to live 06/01/2023 Education Answer Date Recorded What is the highest level of school you have completed or the highest degree you have received? Associate degree: academic program 05/17/2022 Sex and Gender Information Value Date Recorded Sex Assigned at Female 05/17/2022 8:05 PM SECURITIES ADVISER Gender Identity Female 05/17/2022 8:05 PM SECURITIES ADVISER Sexual Orientation Straight 05/17/2022 8: 05 PM SECURITIES ADVISER documented as of this encounter Progress Notes * Bella Kamara O.T., CLT-GUY - 06/13/2023 4:00 PM CDT Occupational Therapy Cancer Rehabilitation [...] on 12/02/22 and right ALND on 12/12/22. [id number] fractions of radiation March 01, 2023. She had fat grafting on 04/07/2023. Onset Date: 12/12/22 Payor: [employer] / Plan: [employer] OPEN ACCESS / Product Type: PPO / SUBJECTIVE Patient/Caregiver Goals: improve shoulder function Patient is training for a 10 K run per report Total Visit Count: 3 OBJECTIVE Right shoulder range of motion post session: Flexion 170, external rotation 84, abduction 118. She has thickened tissue/muscle/myofascial restriction in the pectoralis complex likely due to radiationfibrosis. Positive trigger points TREATMENT Trialed ultrasound at 1.2 w per cm2 x7 minutes over pectoralis major and minor attachment on the anterior right shoulder. Followed this with trigger point releases over the pectoralis major and minor, up through the axilla towards the clavicle as she has scar tissue that is palpable. Positioned patient in side- lying and supine to work on shoulder girdle mobilization as well as trigger points along the scapula. This released the shoulder girdle quite a bit. Performed home stretching program as follows: 1. Wall pushups 5 reps alternating with shoulder traction off pull-up bar 2 reps/30 second hold/2 sets 2. Supine pectoralis stretch 3. Supine overhead flexion stretch 4. Standing external rotation stretch. She needed some cues for technique but did quite well. Discussed with patient she could try using light heat over the anterior shoulder upper pectoralis muscle where she has some fibrosis prior to stretching. Will continue on Friday. 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 Patient is motivated and working on home program while therapies seeing her for 2-3 weeks for manual therapy. Functional Goals and Timeframe's: Goal #1: Patient to have at least 160?? of right shoulder flexion 130?? of abduction and 90?? of external rotation within 6 weeks Plan TREATMENT PLAN Number of Visits: up to 6 visits Plan: Plan of care initiated Plan Comments: Patient will participate in weekly therapy to improve right shoulder range of motionfor 2-3 weeks Treatment interventions may include: Therapeutic exercise, Manual therapy, Ultrasound OT: Time Spent with Patient Modalities Ultrasound (min): 8 min Therapeutic Interventions Manual Therapy (min): 29 min Therapeutic Exercise (min): 15 min Time Tracking Total Timed Units (min): 52 min Total Treatment Time (min): 52 min Bella Kamara O.T., CLT-LANA documented in this encounter Plan of Treatment Upcoming Encounters Date Type Department Care Team (Latest Contact Info) Description 09/24/2023 9:00 AM CDT Lab Department of Infusion Therapy in [place], [place] [address] [place] [phone] Litzy Kingston APRN, C.N.P., D.N.P. [address] [place] [phone] 09/24/2023 10:15 AM CDT Appointment Department of Radiology, [facility], in [place], [place] [address] [place] [phone] Sinai Wolfe M.D., M.S. [address] [place] [phone] 09/24/2023 1:00 PM CDT Office Visit Division of Plastic Surgery in [place], [place] [address] [place] [phone] Pillo Ceballos M.D. [address] [place] [phone] 09/25/2023 7:00 AM CDT Clinical Support Department of Physical Medicine and Rehabilitation in [place], [place] [address] [place] [phone] Liane Manriquez APRN, C.N.P., D.N.P. [address] [place] [phone] Bella Kamara OJoséT., [facility] [address] [place] [phone] 09/29/2023 8:00 AM CDT Hospital Encounter Outpatient Surgery Unit in [place], [place] [address] [place] [phone] Pillo Ceballos M.D. [address] [place] [phone] 09/29/2023 8:00 AM CDT - 09/29/2023 12:30 PM CDT Surgery [facility] [address] [place] [phone] Pillo Ceballos M.D. [address] [place] [phone] REMOVAL TISSUE TREATER BREAST 10/13/2023 10:30 AM CDT Office Visit Division of Plastic Surgery in [place], [place] [address] [place] [phone] Litzy Kingston APRN, CJoséN.P., D.N.P. [address] [place] [phone] 12/05/2023 11:30 AM CDT Clinical Communication Virtual Review in [place], [place] [address] [place] [phone] 12/08/2023 2:30 PM CDT Comprehensive Visit Integrative Medicine and Health in [place], [place] [address] [place] [phone] Shazia Meeks P.A.-C. [address] [place] [phone] Scheduled Procedures Name Priority Associated Diagnoses Date/Ti me REMOVAL TISSUE TREATER BREAST Absence Of Breast Acquired Right Cancer [...] documented as of this encounter Care Teams Manager Salt Relationship Specialty Start Date End Date Unassigned, Pcp PCP - General Family Medicine 03/22/22 documented as of this encounter
--- NOTE | 2023-09-19 07:45 | CRLHL7_ITS ---
For Patients: As a result of the Century Cures Act, medical imaging exams and procedure reports are released immediately into your electronic medical record. You may view this report before your referring provider. If you have questions, please contact your health care provider. UNILATERAL LEFT DIGITAL SCREENING MAMMOGRAM WITH COMPUTER-AIDED DETECTION AND TOMOSYNTHESIS CLINICAL HISTORY: Routine screening exam. COMPARISON: 04/16/2022. TECHNIQUE: Digital mammogram in CC and MLO projections including computer-aided detection (CAD). Tomosynthesis was used in this interpretation. BREAST COMPOSITION: The breast is heterogeneously dense, which may obscure small masses. FINDINGS: LEFT Breast: Focal asymmetric density upper outer quadrant 8 cm from the nipple. IMPRESSION: LEFT breast asymmetry/mass. RECOMMENDATIONS: Additional mammographic views of the LEFT breast including 3D spot compression CC/MLO. LEFT breast ultrasound may also be required. BI-RADS Category 0: Incomplete: Need Additional Imaging Evaluation and/or Prior Mammograms for Comparison. [facility] will contact the patient for follow-up. A lay language report of this examination will be provided to the patient. Dictated by Duane Tucker MD @ 09/22/2023 11:26:23 AM jj/Dictated by: Duane Tucker MD @ 09/22/2023 11:26:00 AM (Electronically Signed)
== END 2023-09-19 07:27 | disposition home or self-care (01) ==
LOC: MAMMO 07:26
PROVIDERS: PCP Physician Assistant; Visit Provider Internal Medicine Hematology & Oncology
DX: N63.20 Unspecified lump in the left breast, unspecified quadrant (principal); R92.2 Inconclusive mammogram
CPT/HCPCS: 77063; 77067

== ENCOUNTER 2023-09-25 08:59 | Outpatient (CLI) | payer OTHER, SELFPAY ==
--- OUTSIDE RECORDS SUMMARY | 2023-09-25 09:02 | XMS_ITS | Referral Summary ---
Author Organization [facility] Address [address] [place] [address] Care Team Providers Care Dispatch Clerk Name Role Phone Unassigned, Pcp Primary Care Provider Unavailabl e Source Comments Patient records contain information from all sites at [facility]. For routine questions regarding patient records, call [phone] during business hours, M-F 8:00 AM - 5:00 PM Central Time. Record requests for emergency care only can be directed to [phone] at any time.[facility] Encounters Date Type Department Care Team Description 08/08/2023 10:00 AM CDT Clinical Support Department of Physical Medicine and Rehabilitation in [place], [place] [address] [place] [phone] Liane Manriquez APRN, C.N.P., D.N.P. eBlla Kamara OVeronika., T-GUY Limitation Of Motion Shoulder Joint Right 08/05/2023 Orders Only Division of Plastic Surgery in [place], [place] [address] [place] [phone] Litzy Kingston APRN, C.N.P., D.N.P. Absence Of Breast Acquired Right (Primary Dx); Cancer Breast Personal History 07/07/2023 4:00 PM CDT Clinical Support Department of Physical Medicine and Rehabilitation in [place], [place] [address] [place] [phone] Liane Manriquez APRN, C.N.P., D.N.P. Bella Kamara, O.T., CLT-GUY Limitation Of Motion Shoulder Joint Right from Last 3 Months Allergies No known [...] from 05/22/2022:Stage IIIB(cT3, cN1(f), cM0, G2, ER-, CO-, HER2-) - Signed by Laure Curtis M.D. on 12/17/2022 Pathologic stage from 12/02/2022:No Stage Recommended(ypT0, pN1a, cM0, GX, ER-, CO-, HER2-) - Signed by Laure Curtis M.D. [...] week, more like 2 times a month [facility] [employer] Answer Date Recorded In the past 12 months has th e [employer], oil, or water [employer] threatened to shut off services in [...] How often do you attend chur or rastafari services? Never 05/17/2022 Do you belong to any clubs o r organizations such as buddhism groups, unions, fraternal or athletic groups, or [...] Answer Date Recorded PHQ-2 Score 0 03/22/2022 [facility] - Occupational Stress [...] your living situation today? I have a [facility] place to live 06/01/2023 Education Answer Date Recorded What is the highest level of school you have completed or the highest degree you have received? Associate degree: academic program 05/17/2022 Sex and Gender Information Value Date Recorded Sex Assigned at Female 05/17/2022 8:05 PM WOOD SHOP TEACHER Gender Identity Female 05/17/2022 8:05 PM WOOD SHOP TEACHER Sexual Orientation Straight 05/17/2022 8: 05 PM WOOD SHOP TEACHER Last Filed Vital Signs Vital Sign Reading Time Taken Comments Blood Pressure 106/68 04/07/2023 11:17 AM WOOD SHOP TEACHER Pulse 96 04/07/2023 11:17 AM WOOD SHOP TEACHER Temperature 36.6 ??C (97.9 ??F) 04/07/2023 10:[address] Respiratory Rate 18 04/07/2023 11:17 AM WOOD SHOP TEACHER Oxygen Saturation 97% 04/07/2023 10:46 AM WOOD SHOP TEACHER Inhaled Oxygen Concentration - - Weight 65.4 kg (144 lb 2.9 oz) 04/07/2023 6:45 A M WOOD SHOP TEACHER Height 162 cm (5' 3.78) 12/12/2022 11:51 AM CDT Body Mass Index 24.92 12/12/2022 11:51 AM CDT Plan of Treatment Upcoming Encounters Date Type Department Care Team (Latest Contact Info) Description 09/26/2023 7:00 AM CDT Clinical Support Department of Physical Medicine and Rehabilitation in [place], [place] [address] [place] [phone] Liane Manriquez APRN, C.N.P., D.N.P. 200 [place] [phone] Bella Kamara O.T., CLT-GUY 200 [place] [phone] 09/29/2023 Hospital Encounter Outpatient Surgery Unit in [place], [place] [address] [place] [phone] Pillo Ceballos M.D. 200 [place] [phone] 12/05/2023 11:30 AM CDT Clinical Communication Virtual Review in [place], [place] [address] [place] [phone] 12/08/2023 2:30 PM CDT Comprehensive Visit Integrative Medicine and Health in [place], [place] [address] [place] [phone] Shazia Meeks P.A.-C. [address] [place] [phone] Scheduled Procedures Name Priority Associated Diagnoses Date/Ti me REMOVAL TISSUE DIRECTOR OF HOTEL BREAST Absence Of Breast Acquired Right Cancer Breast Personal History INJECTION FAT Absence Of Breast Acquired Right Cancer Breast Personal History RECONSTRUCTION BREAST WITH IMPLANT Absence Of Breast Acquired Right Cancer Breast Personal History REDUCTION BREAST Absence Of Breast Acquired Right Cancer Breast Personal History REMOVAL CENTRAL VENOUS NANCY TER - PORT Absence Of Breast Acquired Right Cancer Breast Personal History Medical Devices Implanted Type Area Valve Lapper Device Identifier Shelf Expiration Date Model / Serial / Lot Grft Alldevin Ferro Mdthk 1.6 16x20 - [id number] Implanted:Qty: 1 on 12/02/2022 by Sinai Wolfe M.D., M.S. at [facility] Bone or Tissue Right: Breast [employer] 01/08/2024 [id number] / / [id number] Brst Nacl Tien Lopez 350cc - [id number] - [id number] Implanted:Qty: 1 on 12/02/2022 by Sinai Wolfe M.D., M.S. at [facility] Breast Implant Right: Breast [employer] 10/07/2025 [id number]-[id number] / [id number] / [id number] Clp Hrzn Ti 6 Nhi Lopez Mik - [id number] Implanted:Qty: 1 on 12/02/2022 by Sinai Wolfe M.D., M.S. at [facility] Hardware e.g. pins/screws/r ods Right: Breast [employer] [id number] / / Clp Hrzn Ti 6 Clp Di Red - [id number] Implanted:Qty: 1 on 12/02/2022 by Sinai Wolfe M.D., M.S. at [facility] Hardware e.g. pins/screws/r ods Right: Breast [employer] / / Clp Hrzn Ti 6 Clp Sm Red - [id number] Implanted:Qty: 1 on 12/02/2022 by Sinai Wolfe M.D., M.S. at [facility] Hardware e.g. pins/screws/r ods Right: Breast [employer] / / Clp Hrzn Ti 24 Clp Sm Red - [id number] Implanted:Qty: 1 on 12/12/2022 by Sinai Wolfe M.D., M.S. at [facility] Hardware e.g. pins/screws/r ods [employer] [id number] 09/18/2027 [id number] / / [id number] Clp Hrzn Ti 6 Nhi Md Mik - [id number] Implanted:Qty: 1 on 12/12/2022 by Sinai Wolfe M.D., M.S. at [facility] Hardware e.g. pins/screws/r ods [employer] [id number] 09/03/2027 [id number] / / [id number] Imaging Marker-04/22/19 Implanted:04/10 (Quantity not on [...] METABOLIC PANEL, S/P Routine 04/01/2023 12:26 PM WOOD SHOP TEACHER Absence Of Breast Acquired Right BI BREAST DIAGNOSTIC RIGHT WITH TOMOSYNTHESIS RAD - Routine (most inpatients and all outpatients) 11/01/2022 2:45 PM CDT Malignant Neoplasm Of Overlapping Sites Of Right Female Breast (HCC) from Last 3 Months or Most Recently Relevant to Health Maintenance Results * (ABNORMAL) Basic Metabolic Panel (04/01/2023 12:26 PM WOOD SHOP TEACHER) Potassium, S 4.2 3.6 - 5.2 mmol/L 04/01/2023 1:19 PM WOOD SHOP TEACHER DTL Sodium, S 143 135 - 145 mmol/L 04/01/2023 1:19 PM WOOD SHOP TEACHER DTL Chloride, S 105 98 - 107 mmol/L 04/01/2023 1:19 PM WOOD SHOP TEACHER DTL Bicarbonate, S 25 22 - 29 mmol/L 04/01/2023 1:19 PM WOOD SHOP TEACHER DTL Anion Gap 13 7 - 15 04/01/2023 1:19 PM WOOD SHOP TEACHER DTL BUN (Blood Urea Nitrogen), S 14 6 - 21 mg/dL 04/01/2023 1:19 PM WOOD SHOP TEACHER DTL Creatinine 1.06(H) 0.59 - 1.04 mg/dL 04/01/2023 1:19 PM WOOD SHOP TEACHER DTL Estimated GFR (eGFR) 63 >=60 mL/min/BSA 04/01/2023 1:19 PM WOOD SHOP TEACHER DTL Comment: Estimated GFR calculated using the 2020 CKD_EPI creatinine equation. Calcium, Total, S 9.5 8.6 - 10.0 mg/dL 04/01/2023 1:19 PM WOOD SHOP TEACHER DTL Glucose, S 99 70 - 140 mg/dL 04/01/2023 1:19 PM WOOD SHOP TEACHER DTL Blood (Blood, Venous) 04/01/2023 12:26 PM WOOD SHOP TEACHER 04/01/2023 1:01 PM WOOD SHOP TEACHER Mireya Quintero APRN.N.P., D.N.P. LAB BLO OD ADD-ON [facility] [place] [address] [place] [address], [facility] [address] [place] [address] * (ABNORMAL) BI Breast Diagnostic Right with [...] Known Biopsy-Proven Malignancy. Sinai Wolfe M.D., M.S. [facility] [place]STAL ES from Last 3 Months or Most Recently Relevant to Health Maintenance Additional Health Concerns Infection Onset Date Last Indicated Protective Environment 06/06/2023 4 Advance Directives For more information, please contact: [phone] * Full Code (Latest Code Status on File) Date Activated Date Inactivated Comments 12/12/2022 11:24 AM 12/12/2022 9:43 PM Question Answer Comments Full Code: Not Discussed Due to: Not medically appropriate * Full Code Date Activated Date Inactivated Comments 12/02/2022 5:46 AM 12/02/2022 8:04 PM Question Answer Comments Full Code: Not Discussed Due to: Not medically appropriate Care Teams Dispatch Clerk Relationship Specialty Start Date End Date Unassigned, Pcp PCP - General Family Medicine 03/22/22
--- OUTSIDE RECORDS SUMMARY | 2023-09-25 09:02 | XMS_ITS ---
Author Organization [facility] Address [address] [place] [address] Care Team Providers Care Grader Meat Name Role Phone Unavailable Unavailable Unavailable Surgery Details Not on file Complications Check Surgery Details section. Procedure Estimated Blood Loss Check Surgery Details section. Procedure Findings Check Surgery Details section. Procedure Specimens Taken Check Surgery Details section.
--- OUTSIDE RECORDS SUMMARY | 2023-09-25 09:02 | XMS_ITS | Clinical Summary ---
Author Organization [facility] Address [address] [place] [address] Care Team Providers Care Proration Clerk Name Role Phone Unassigned, Pcp Primary Care Provider Unavailabl e Source Comments Patient records contain information from all sites at [facility]. For routine questions regarding patient records, call [phone] during business hours, M-F 8:00 AM - 5:00 PM Central Time. Record requests for emergency care only can be directed to [phone] at any time.[facility] Allergies No known active allergies Medications Medication [...] from 05/22/2022:Stage IIIB(cT3, cN1(f), cM0, G2, ER-, [place]-, HER2-) - Signed by Laure Curtis M.D. on 12/17/2022 Pathologic stage from 12/02/2022:No Stage Recommended(ypT0, pN1a, cM0, GX, ER-, WI-, HER2-) - Signed by Laure Curtis M.D. on 12/17/2022 Encounters Date Type Department Care Team Description 08/08/2023 10:00 AM CDT Clinical Support Department of Physical Medicine and Rehabilitation in [place], [place] [address] [place] [phone] Liane Manriquez APRN, C.N.P., D.N.P. Bella Kamara, O.T., CLT-GUY Limitation Of Motion Shoulder Joint Right 08/05/2023 Orders Only Division of Plastic Surgery in [place], [place] [address] [place] [phone] Litzy Kingston APRN, C.N.P., D.N.P. Absence Of Breast Acquired Right (Primary Dx); Cancer Breast Personal History 07/07/2023 4:00 PM CDT Clinical Support Department of Physical Medicine and Rehabilitation in [place], [place] [address] [place] [address] Liane Manriquez APRN, C.N.P., D.N.P. Bella Kamara, O.T., CLT-GUY Limitation Of Motion Shoulder Joint Right from Last 3 Months Immunizations Name Administration [...] week, more like 2 times a month [facility] [employer] Answer Date Recorded In the past 12 months has [facility] [employer], gas, oil, or water [employer] threatened to shut off services in your [...] week 05/17/2022 How often do you attend [facility] or mandaen services? Never 05/17/2022 Do you belong to any clubs o r organizations such as yazdanism groups, unions, fraternal or athletic groups, or [...] Answer Date Recorded PHQ-2 Score 0 03/22/2022 [facility] - [...] your living situation today? I have a [facility] place to live 06/01/2023 Education Answer Date Recorded What is the highest level of school you have completed or the highest degree you have received? Associate degree: academic program 05/17/2022 Sex and Gender Information Value Date Recorded Sex Assigned at Female 05/17/2022 8:05 PM BI REPORT DEVELOPER Gender Identity Female 05/17/2022 8:05 PM BI REPORT DEVELOPER Sexual Orientation Straight 05/17/2022 8: 05 PM BI REPORT DEVELOPER Last Filed Vital Signs Vital Sign Reading Time Taken Comments Blood Pressure 106/68 04/07/2023 11:17 AM BI REPORT DEVELOPER Pulse 96 04/07/2023 11:17 AM BI REPORT DEVELOPER Temperature 36.6 ??C (97.9 ??F) 04/07/2023 10:[address] Respiratory Rate 18 04/07/2023 11:17 AM BI REPORT DEVELOPER Oxygen Saturation 97% 04/07/2023 10:46 AM BI REPORT DEVELOPER Inhaled Oxygen Concentration - - Weight 65.4 kg (144 lb 2.9 oz) 04/07/2023 6:45 A M BI REPORT DEVELOPER Height 162 cm (5' 3.78) 12/12/2022 11:51 AM CDT Body Mass Index 24.92 12/12/2022 11:51 AM CDT Plan of Treatment Upcoming Encounters Date Type Department Care Team (Latest Contact Info) Description 09/26/2023 7:00 AM CDT Clinical Support Department of Physical Medicine and Rehabilitation in [place], [place] 200 [place] [phone] Liane Manriquez APRN, C.N.P., D.N.P. 200 [place] [address] Bella Kamara O.T., CLT-GUY [address] [place] [phone] 09/29/2023 Hospital Encounter Outpatient Surgery Unit in [place], [place] [address] [place] [phone] Pillo Ceballos M.D. [address] [place] [phone] 12/05/2023 11:30 AM CDT Clinical Communication Virtual Review in [place], [place] 200 [place] [phone] 12/08/2023 2:30 PM CDT Comprehensive Visit Integrative Medicine and Health in [place], [place] [address] [place] [phone] Shazia Meeks P.A.-C. 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 INSIDE BREAST Absence Of Breast Acquired Right Cancer Breast Personal History INJECTION FAT Absence Of Breast Acquired Right Cancer Breast Personal History RECONSTRUCTION BREAST WITH IMPLANT Absence Of Breast Acquired Right Cancer Breast Personal History REDUCTION BREAST Absence Of Breast Acquired Right Cancer Breast Personal History REMOVAL CENTRAL VENOUS NANCY TER - PORT Absence Of Breast Acquired Right Cancer Breast Personal History Health Maintenance Due Date Last Done Comments [...] 2) 05/17/2022 03/22/2022 COVID-19 Vaccine (4 - 2022-24 season) 2022 01/19/2021, 04/27/2020, 03/30/2020 Depression Screening [...] this topic Medical Devices Implanted Type Area Information Technology Internship Device Identifier Shelf Expiration Date Model / Serial / Lot Melodie Stephen Pillo Lopezthk 1.6 16x20 - [id number] Implanted:Qty: 1 on 12/02/2022 by Sinai Wolfe M.D., M.S. at [facility] Bone or Tissue Right: Breast [employer] 01/08/2024 [id number] / / [id number] Brst Nacl Tien Lopez 350 - [id number] - [id number] Implanted:Qty: 1 on 12/02/2022 by Sinai Wolfe M.D., M.S. at [facility] Breast Implant Right: Breast [employer] 10/07/2025 SCPX-[id number] / [id number] / [id number] Clp Hrzn Ti 6 Clp Mik - [id number] Implanted:Qty: 1 on 12/02/2022 by Sinai Wolfe M.D., M.S. at [facility] Hardware e.g. pins/screws/r ods Right: Breast [employer] [id number] / / Clp Hrzn Ti 6 Clp Sm Red - [id number] Implanted:Qty: 1 on 12/02/2022 by Sinai Wolfe M.D., M.S. at [facility] Hardware e.g. pins/screws/r ods Right: Breast [employer] [id number] / / Clp Hrzn Ti 6 Clp Sm Red - [id number] Implanted:Qty: 1 on 12/02/2022 by Sinai Wolfe M.D., M.S. at [facility] Hardware e.g. pins/screws/r ods Right: Breast [employer] [id number] / / Clp Hrzn Ti 24 Clp Sm Red - [id number] Implanted:Qty: 1 on 12/12/2022 by Sinai Wolfe M.D., M.S. at [facility] Hardware e.g. pins/screws/r ods [employer] [id number] 09/18/2027 [id number] / / [id number] Clp Hrzn Ti 6 Clp Md Mik - [id number] Implanted:Qty: 1 on 12/12/2022 by Sinai Wolfe M.D., M.S. at [facility] Hardware e.g. pins/screws/r ods [employer] [id number] 09/03/2027 [id number] / / [id number] Imaging Marker-04/22/19 Implanted:04/10 (Quantity not on [...] METABOLIC PANEL, S/P Routine 04/01/2023 12:26 PM BI REPORT DEVELOPER Absence Of Breast Acquired Right BI BREAST DIAGNOSTIC RIGHT WITH TOMOSYNTHESIS RAD - Routine (most inpatients and all outpatients) 11/01/2022 2:45 PM CDT Malignant Neoplasm Of Overlapping Sites Of Right Female Breast (HCC) from Last 3 Months or Most Recently Relevant to Health Maintenance Results * (ABNORMAL) Basic Metabolic Panel (04/01/2023 12:26 PM BI REPORT DEVELOPER) Pathologist [facility] Potassium, S 4.2 3.6 - 5.2 mmol/L 04/01/2023 1:19 PM BI REPORT DEVELOPER DTL Sodium, S 143 135 - 145 mmol/L 04/01/2023 1:19 PM BI REPORT DEVELOPER DTL Chloride, S 105 98 - 107 mmol/L 04/01/2023 1:19 PM BI REPORT DEVELOPER DTL Bicarbonate, S 25 22 - 29 mmol/L 04/01/2023 1:19 PM BI REPORT DEVELOPER DTL Anion Gap 13 7 - 15 04/01/2023 1:19 PM BI REPORT DEVELOPER DTL BUN (Blood Urea Nitrogen), S 14 6 - 21 mg/dL 04/01/2023 1:19 PM BI REPORT DEVELOPER DTL Creatinine 1.06(H) 0.59 - 1.04 mg/dL 04/01/2023 1:19 PM BI REPORT DEVELOPER DTL Estimated GFR (eGFR) 63 >=60 mL/min/BSA 04/01/2023 1:19 PM BI REPORT DEVELOPER DTL Comment: Estimated GFR calculated using the 2020 CKD_EPI creatinine equation. Calcium, Total, S 9.5 8.6 - 10.0 mg/dL 04/01/2023 1:19 PM BI REPORT DEVELOPER DTL Glucose, S 99 70 - 140 mg/dL 04/01/2023 1:19 PM BI REPORT DEVELOPER DTL Blood (Blood, Venous) 04/01/2023 12:26 PM BI REPORT DEVELOPER 04/01/2023 1:01 PM BI REPORT DEVELOPER Liane Manriquez APRN, C.N.P., D.N.P. LAB BLO OD ADD-ON [address] [address] DTL [facility] [address] [place] [address] * (ABNORMAL) BI Breast Diagnostic Right with [...] Known Biopsy-Proven Malignancy. Sinai Wolfe M.D., M.S. ADRYAN HERNANDEZ from Last 3 Months or Most Recently Relevant to Health Maintenance Additional Health Concerns Infection Onset Date Last Indicated Protective Environment 06/06/2023 4 Advance Directives For more information, please contact: [phone] * Full Code (Latest Code Status on File) Date Activated Date Inactivated Comments 12/12/2022 11:24 AM 12/12/2022 9:43 PM Question Answer Comments Full Code: Not Discussed Due to: Not medically appropriate * Full Code Date Activated Date Inactivated Comments 12/02/2022 5:46 AM 12/02/2022 8:04 PM Question Answer Comments Full Code: Not Discussed Due to: Not medically appropriate Care Teams Proration Clerk Relationship Specialty Start Date End Date Unassigned, Pcp PCP - General Family Medicine 03/22/22
--- OUTSIDE RECORDS SUMMARY | 2023-09-25 09:02 | XMS_ITS ---
Author Organization [facility] Address [address] [place] [address] Care Team Providers Care Creative Technologist Name Role Phone Unassigned, Pcp Primary Care [...] from 05/22/2022:Stage IIIB(cT3, cN1(f), cM0, G2, ER-, [place]-, HER2-) - Signed by Laure Curtis M.D. on 12/17/2022 Pathologic stage from 12/02/2022:No Stage Recommended(ypT0, pN1a, cM0, GX, ER-, [place]-, HER2-) - Signed by Laure Curtis M.D. [...] Treated Prescribed Fraction Dose Prescribed Total Dose [id number] 02/27/2023 35 25 of 25 200 cGy 5,000 cGy Reference Point Last Treated On Elapsed Days Session Dose Total Dose [id number] 02/27/2023 35 200 cGy 5,000 cGy
--- OUTSIDE RECORDS SUMMARY | 2023-09-25 09:03 | XMS_ITS | Encounter Summary ---
Author Organization [facility] Address [address] [place] [address] Care Team Providers Care Pest Control Chemical Technician Name Role Phone Unassigned, Pcp Primary Care Provider Unavailabl e Reason for Referral * Outpatient (Routine) - Authorized Specialty Diagnoses / Procedures Referred By Contac t Referred To Contact Plastic Surgery Litzy Kingston APRN, C.N.P., D.N.P. [address] [place] [phone] [facility] Referral ID Status Reason Start Date Expiration Date V isits Requested Visits Authorized [id number] Authorized 08/05/2023 02/03/2025 1 1 Scheduling Instructions Schedule with Litzy Amaral first, otherwise Liane or Dora if Litzy B not available * Outpatient (Routine) - Authorized Specialty Diagnoses / Procedures Referred By Contac t Referred To Contact Plastic Surgery Litzy Kingston APRN, C.N.P., D.N.P. [address] [place] [phone] [facility] Referral ID Status Reason Start Date Expiration Date V isits Requested Visits Authorized [id number] Authorized 08/05/2023 02/03/2025 [address] Ceballos on 09/23 at 1pm, override Encounter Details Date Type Department Care Team (Late st Contact Info) Description 08/05/2023 Orders Only Division of Plastic Surgery in [place], [place] [address] [place] [phone] Litzy Kingston APRN, C.N.P., D.N.P. [address] [place] [phone] Absence Of Breast Acquired Right (Primary Dx); Cancer Breast Personal History Social History Tobacco Use Types Packs/Day Years Used Date Smoking Tobacco: Former Cigarettes 0 03/10/1991 - 03/10/2011 Smokeless Tobacco: Never Alcohol Use Standard Drinks/Week Comments Yes 1 (1 standard drink = 0.6 oz pure alcohol) Occasionally not ever week, more like 2 times a month [facility] [employer]rumities Answer Date Recorded In the past 12 months has health system electric, gas, oil, or water [employer] threatened to shut off services in your [...] often do you attend chur ch or mandaeism services? Never 05/17/2022 Do you belong to any clubs o r organizations such as gnosticist groups, unions, fraternal or athletic groups, or [...] your living situation today? I have a [facility] place to live 06/01/2023 Education Answer Date Recorded What is the highest level of school you have completed or the highest degree you have received? Associate degree: academic program 05/17/2022 Sex and Gender Information Value Date Recorded Sex Assigned at Female 05/17/2022 8:05 PM INTERMODAL CUSTOMER SERVICE Gender Identity Female 05/17/2022 8:05 PM INTERMODAL CUSTOMER SERVICE Sexual Orientation Straight 05/17/2022 8: 05 PM INTERMODAL CUSTOMER SERVICE documented as of this encounter Plan of Treatment Upcoming Encounters Date Type Department Care Team (Latest Contact Info) Description 09/26/2023 7:00 AM CDT Clinical Support Department of Physical Medicine and Rehabilitation in [place], [place] [address] [place] [phone] Liane Manriquez APRN, C.N.P., D.N.P. [address] [place] [phone] Bella Kamara O.T., CLT-GUY [address] [place] [phone] 09/29/2023 Hospital Encounter Outpatient Surgery Unit in [place], [place] [address] [place] [phone] Pillo Ceballos M.D. [address] [place] [phone] 12/05/2023 11:30 AM CDT Clinical Communication Virtual Review in [place], [place] [address] [place] [phone] 12/08/2023 2:30 PM CDT Comprehensive Visit Integrative Medicine and Health in [place], [place] [address] [place] [phone] Shazia Meeks P.A.-C. 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 Absence Of Breast Acquired Right Cancer Breast Personal History INJECTION FAT Absence Of Breast Acquired Right Cancer Breast Personal History RECONSTRUCTION BREAST WITH IMPLANT Absence Of Breast Acquired Right Cancer Breast Personal History REDUCTION BREAST Absence Of Breast Acquired Right Cancer Breast Personal History REMOVAL CENTRAL VENOUS NANCY TER - PORT Absence Of Breast Acquired Right Cancer Breast Personal History Scheduled Referrals Name Type Priority Associated Diagnoses Orde r Schedule Plastic Surgery Pre Op (clinic) Outpatient Referral Routine Expected: 09/24/2023, Expires: 11/04/2024 Plastic Surgery office visit (clinic) Outpatient Referral Routine Expected: 10/13/2023, Expires: 11/04/2024 documented as of this encounter Visit Diagnoses Diagnosis Absence Of Breast Acquired Right Cancer Breast Personal History Absence Of Breast Acquired Right- Primary Cancer Breast Personal History documented in this encounter Additional Health Concerns Infection Onset Date Last Indicated Resolved Time Protective Environment 06/06/2023 06/06/2023 documented as of this encounter Care Teams Pest Control Chemical Technician Relationship Specialty Start Date End Date Unassigned, Pcp PCP - General Family Medicine 03/22/22 documented as of this encounter
--- OUTSIDE RECORDS SUMMARY | 2023-09-25 09:03 | XMS_ITS | Encounter Summary ---
Author Organization [facility] Address [address] [place] [address] Care Team Providers Care Cordwood Cutter Name Role Phone Unassigned, Pcp Primary Care Provider Unavailabl e Reason for Visit * Occupational Therapy (Routine) - Authorized Specialty Diagnoses / Procedures Referred By Fiona peck Referred To Contact Diagnoses Limitation Of Motion Shoulder Joint Right Procedures OT Ongoing Treatment Liane Manriquez APRN, C.N.P., D.N.P. [address] [place] [phone] [facility] Referral ID Status Reason Start Date Expiration Date V isits Requested Visits Authorized [id number] Authorized 06/06/2023 06/05/2024 6 6 Encounter Details Date Type Department Care Team (Latest Contact Info) Description 06/24/2023 3:00 PM CDT Clinical Support Department of Physical Medicine and Rehabilitation in [place], [place] [address] [place] [phone] Liane Manriquez APRN, C.N.P., D.N.P. [address] [place] [phone] Bella Kamara O.T., CLT-GUY [address] [place] [phone] Limitation Of Motion Shoulder Joint Right Social History Tobacco Use Types Packs/Day Years Used Date Smoking Tobacco: Former Cigarettes 0 03/10/1991 - 03/10/2011 Smokeless Tobacco: Never Alcohol Use Standard Drinks/Week Comments Yes 1 (1 standard drink = 0.6 oz pure alcohol) Occasionally not ever week, more like 2 times a month [facility] [employer] Answer Date Recorded In the past 12 months has [facility] [employer], gas, oil, or water [employer] threatened to shut off services in your [...] week 05/17/2022 How often do you attend [facility] or mandaen services? Never 05/17/2022 Do you belong to any clubs o r organizations such as baptism groups, unions, fraternal or athletic groups, or [...] Answer Date Recorded PHQ-2 Score 0 03/22/2022 [facility] - Occupational Stress Questionnaire Answer Date [...] your living situation today? I have a [facility] place to live 06/01/2023 Education Answer Date Recorded What is the highest level of school you have completed or the highest degree you have received? Associate degree: academic program 05/17/2022 Sex and Gender Information Value Date Recorded Sex Assigned at Female 05/17/2022 8:05 PM WEAVER NARROW FABRICS Gender Identity Female 05/17/2022 8:05 PM WEAVER NARROW FABRICS Sexual Orientation Straight 05/17/2022 8: 05 PM WEAVER NARROW FABRICS documented as of this encounter Progress Notes [...] on 12/02/22 and right ALND on 12/12/22. [id number] fractions of radiation March 01, 2023. She had fat grafting on 04/07/2023. Onset Date: 12/12/22 Payor: [place] / Plan: [place] OPEN ACCESS / Product Type: PPO / [...] Department of Physical Medicine and Rehabilitation in [place], [place] [address] [place] [address] Liane Manriquez APRN, C.N.P., D.N.P. [address] [place] [phone] Bella Kamara O.T., [facility] [address] [place] [phone] 09/29/2023 Hospital Encounter Outpatient Surgery Unit in [place], [place] [address] [place] [phone] Pillo Ceballos M.D. [address] [place] [phone] 12/05/2023 11:30 AM CDT Clinical Communication Virtual Review in [place], [place] 200 [place] [phone] 12/08/2023 2:30 PM CDT Comprehensive Visit Integrative Medicine and Health in [place], [place] [address] [place] [phone] Shazia Meeks P.A.-C. [address] [place] [phone] Scheduled Procedures Name Priority Associated Diagnoses Date/Ti me REMOVAL TISSUE FIRE AND EXPLOSION INVESTIGATOR BREAST Absence Of Breast Acquired Right Cancer Breast Personal History INJECTION FAT Absence Of Breast Acquired Right Cancer Breast Personal History RECONSTRUCTION BREAST WITH IMPLANT Absence Of Breast Acquired Right Cancer Breast Personal History REDUCTION BREAST Absence Of Breast Acquired Right Cancer Breast Personal History REMOVAL CENTRAL VENOUS NANCY TER - PORT Absence Of Breast Acquired Right Cancer Breast Personal History documented as of this encounter Visit Diagnoses Diagnosis Limitation Of Motion Shoulder Joint Right documented in this encounter Additional Health Concerns Infection Onset Date Last Indicated Resolved Time Protective Environment 06/06/2023 06/06/2023 documented as of this encounter Care Teams Cordwood Cutter Relationship Specialty Start Date End Date Unassigned, Pcp PCP - General Family Medicine 03/22/22 documented as of this encounter
--- OUTSIDE RECORDS SUMMARY | 2023-09-25 09:03 | XMS_ITS | Encounter Summary ---
Author Organization [facility] Address [address] [place] [phone] Care Team Providers Care Warehouse Assembly Worker Name Role Phone Unassigned, Pcp Primary Care Provider Unavailabl e Reason for Visit * Occupational Therapy (Routine) - Authorized Specialty Diagnoses / Procedures Referred By Fiona peck Referred To Contact Diagnoses Limitation Of Motion Shoulder Joint Right Procedures OT Ongoing Treatment Liane Manriquez APRN, C.N.P., D.N.P. [address] [place] [phone] [facility] Referral ID Status Reason Start Date Expiration Date V isits Requested Visits Authorized [id number] Authorized 06/06/2023 06/05/2024 6 6 Encounter Details Date Type Department Care Team (Latest Contact Info) Description 08/08/2023 10:00 AM CDT Clinical Support Department of Physical Medicine and Rehabilitation in [place], [place] [address] [place] [phone] Liane Manriquez APRN, C.N.P., D.N.P. [address] [place] [phone] Bella Kamara O.T., CLT-GUY [address] [place] [phone] Limitation Of Motion Shoulder Joint Right Social History Tobacco Use Types Packs/Day Years Used Date Smoking Tobacco: Former Cigarettes 0 03/10/1991 - 03/10/2011 Smokeless Tobacco: Never Alcohol Use Standard Drinks/Week Comments Yes 1 (1 standard drink = 0.6 oz pure alcohol) Occasionally not ever week, more like 2 times a month [facility] Genciaities Answer Date Recorded In the past 12 months has [facility] [employer], gas, oil, or water [employer] threatened to shut off services in your [...] week 05/17/2022 How often do you attend [facility] or taoism services? Never 05/17/2022 Do you belong to any clubs o r organizations such as temple groups, unions, fraternal or athletic groups, or [...] Answer Date Recorded PHQ-2 Score 0 03/22/2022 [facility] - Occupational Stress Questionnaire Answer Date [...] your living situation today? I have a [facility] place to live 06/01/2023 Education Answer Date Recorded What is the highest level of school you have completed or the highest degree you have received? Associate degree: academic program 05/17/2022 Sex and Gender Information Value Date Recorded Sex Assigned at Female 05/17/2022 8:05 PM QUEEN'S COUNSEL Gender Identity Female 05/17/2022 8:05 PM QUEEN'S COUNSEL Sexual Orientation Straight 05/17/2022 8: 05 PM QUEEN[employer] COUN[employer] documented as of this encounter Progress Notes [...] on 12/02/22 and right ALND on 12/12/22. [id number] fractions of radiation March 01, 2023. She had fat grafting on 04/07/2023. Onset Date: 12/12/22 Payor: HashTip / Plan: HashTip OPEN ACCESS / Product Type: PPO / [...] therapy 28 minutes . Bella Kamara O.T., RONNY documented in this encounter Plan of Treatment Upcoming Encounters Date Type Department Care Team (Latest Contact Info) Description 09/26/2023 7:00 AM CDT Clinical Support Department of Physical Medicine and Rehabilitation in [place], [place] [address] [place] [phone] Liane Manriquez APRN, C.N.P., D.N.P. [address] [place] [phone] Bella Kamara O.T., RONNY [address] [place] [phone] 09/29/2023 Hospital Encounter Outpatient Surgery Unit in [place], [place] [address] [place] [phone] Pillo Ceballos M.D. [address] [place] [phone] 12/05/2023 11:30 AM CDT Clinical Communication Virtual Review in [place], [place] [address] [place] [phone] 12/08/2023 2:30 PM CDT Comprehensive Visit Integrative Medicine and Health in [place], [place] [address] [place] [phone] Shazia Meeks P.A.-C. [address] [place] [phone] Scheduled Procedures Name Priority Associated Diagnoses Date/Ti me REMOVAL TISSUE MECHANICAL STRIPER BREAST Absence Of Breast Acquired Right Cancer [...] History Limitation Of Motion Shoulder Joint Right documented in this encounter Additional Health Concerns Infection Onset Date Last Indicated Resolved Time Protective Environment 06/06/2023 06/06/2023 documented as of this encounter Care Teams Warehouse Assembly Worker Relationship Specialty Start Date End Date Unassigned, Pcp PCP - General Family Medicine 03/22/22 documented as of this encounter
--- OUTSIDE RECORDS SUMMARY | 2023-09-25 09:03 | XMS_ITS | Encounter Summary ---
Author Organization [facility] Address [address] [place] [address] Care Team Providers Care Blast Furnace Supervisor Name Role Phone Unassigned, Pcp Primary Care Provider Unavailabl e Reason for Visit * Occupational Therapy (Routine) - Authorized Specialty Diagnoses / Procedures Referred By Fiona peck Referred To Contact Diagnoses Limitation Of Motion Shoulder Joint Right Procedures OT Ongoing Treatment Liane Manriquez APRN, C.N.P., D.N.P. [address] [place] [phone] [facility] Referral ID Status Reason Start Date Expiration Date V isits Requested Visits Authorized [id number] Authorized 06/06/2023 06/05/2024 6 6 Encounter Details Date Type Department Care Team (Latest Contact Info) Description 07/07/2023 4:00 PM CDT Clinical Support Department of Physical Medicine and Rehabilitation in [place], [place] [address] [place] [phone] Liane Manriquez APRN, C.N.P., D.N.P. [address] [place] [phone] Bella Kamara O.T., CLT-GUY [address] [place] [phone] Limitation Of Motion Shoulder Joint Right Social History Tobacco Use Types Packs/Day Years Used Date Smoking Tobacco: Former Cigarettes 0 03/10/1991 - 03/10/2011 Smokeless Tobacco: Never Alcohol Use Standard Drinks/Week Comments Yes 1 (1 standard drink = 0.6 oz pure alcohol) Occasionally not ever week, more like 2 times a month [facility] SafetyCertifiedities Answer Date Recorded In the past 12 months has [facility] [employer], gas, oil, or water [employer] threatened to shut off services in your [...] week 05/17/2022 How often do you attend [facility] or oriental orthodox services? Never 05/17/2022 Do you belong to any clubs o r organizations such as yarsani groups, unions, fraternal or athletic groups, or [...] Answer Date Recorded PHQ-2 Score 0 03/22/2022 [facility] - Occupational Stress Questionnaire Answer Date [...] your living situation today? I have a [facility] place to live 06/01/2023 Education Answer Date Recorded What is the highest level of school you have completed or the highest degree you have received? Associate degree: academic program 05/17/2022 Sex and Gender Information Value Date Recorded Sex Assigned at Female 05/17/2022 8:05 PM PRINTING SCREEN ASSEMBLER Gender Identity Female 05/17/2022 8:05 PM PRINTING SCREEN ASSEMBLER Sexual Orientation Straight 05/17/2022 8: 05 PM PRINTING SCREEN ASSEMBLER documented as of this encounter Progress Notes [...] on 12/02/22 and right ALND on 12/12/22. [id number] fractions of radiation March 01, 2023. She had fat grafting on 04/07/2023. Onset Date: 12/12/22 Payor: Dapt / Plan: [employer] OPEN ACCESS / Product Type: PPO / [...] therapy x3 TherEx x1 Bella Kamara O.T., RONNY documented in this encounter Plan of Treatment Upcoming Encounters Date Type Department Care Team (Latest Contact Info) Description 09/26/2023 7:00 AM CDT Clinical Support Department of Physical Medicine and Rehabilitation in [place], [place] [address] [place] [phone] Liane Manriquez APRN, C.N.P., D.N.P. [address] [place] [phone] Bella Kamara O.T., RONNY [address] [place] [phone] 09/29/2023 Hospital Encounter Outpatient Surgery Unit in [place], [place] [address] [place] [phone] Pillo Ceballos M.D. [address] [place] [phone] 12/05/2023 11:30 AM CDT Clinical Communication Virtual Review in [place], [place] [address] [place] [phone] 12/08/2023 2:30 PM CDT Comprehensive Visit Integrative Medicine and Health in [place], [place] [address] [place] [phone] Shazia Meeks P.A.-C. [address] [place] [phone] Scheduled Procedures Name Priority Associated Diagnoses Date/Ti me REMOVAL TISSUE SOCCER COMMENTATOR BREAST Absence Of Breast Acquired Right Cancer [...] documented as of this encounter Care Teams Blast Furnace Supervisor Relationship Specialty Start Date End Date Unassigned, Pcp PCP - General Family Medicine 03/22/22 documented as of this encounter
--- OUTSIDE RECORDS SUMMARY | 2023-09-25 09:03 | XMS_ITS | Encounter Summary ---
Author Organization [facility] Address [address] [place] [address] Care Team Providers Care Assistant Designer Name Role Phone Unassigned, Pcp Primary Care Provider Unavailabl e Reason for Visit * Outpatient (Routine) - Closed Specialty Diagnoses / Procedures Referred By Fiona peck Referred To Contact Plastic Surgery Sushila Hardy P.A.-C. [address] [place] [phone] [facility] Referral ID Status Reason Start Date Expiration Date Visits Re quested Visits Authorized [id number] Closed 04/28/2023 10/27/2024 1 1 Encounter Details Date Type Department Care Team (Latest Contact Info) Description 06/24/2023 8:00 AM CDT Telemedicine Division of Plastic Surgery in [place], [place] [address] [place] [phone] Sushila Hardy P.A.-C. [address] [place] [phone] Follow Up Examination Postoperative Visit (Primary Dx) Social History Tobacco Use Types Packs/Day Years Used Date Smoking Tobacco: Former Cigarettes 0 03/10/1991 - 03/10/2011 Smokeless Tobacco: Never Alcohol Use Standard Drinks/Week Comments Yes 1 (1 standard drink = 0.6 oz pure alcohol) Occasionally not ever week, more like 2 times a month [facility] Utilities Answer Date Recorded In the past [...] often do you attend chur ch or methodist services? Never 05/17/2022 Do you belong to any clubs o r organizations such as advent groups, unions, fraternal or athletic groups, or [...] Answer Date Recorded PHQ-2 Score 0 03/22/2022 [facility] of Occupat ional [facility] - Occupational Stress Questionnaire Answer [...] your living situation today? [facility] 06/01/2023 Education Answer Date Recorded What is the highest level of school you have completed or the highest degree you have received? 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 She denies signs/symptoms [...] of these occur. Pt is aware that [facility] surgeons recommend prophylactic antibiotics anytime she is [...] Department of Physical Medicine and Rehabilitation in [address] [phone] Liane Manriquez APRN, C.N.P., D.N.P. [address] [place] [phone] Bella Kamara OVeronika., [facility]-GUY [address] [place] [phone] 09/29/2023 Hospital Encounter Outpatient Surgery Unit in [place], [place] [address] [place] [phone] Pillo Ceballos M.D. [address] [place] [phone] 12/05/2023 11:30 AM CDT Clinical Communication Virtual Review in [place], [place] 200 [place] [phone] 12/08/2023 2:30 PM CDT Comprehensive Visit Integrative Medicine and Health in [place], [place] [address] [place] [phone] Shazia Meeks P.A.-C. [address] [place] [phone] Scheduled Procedures Name Priority Associated Diagnoses Date/Ti me REMOVAL TISSUE COMMUNICATION ARTS LECTURER BREAST Absence Of Breast Acquired Right Cancer [...] Diagnosis Follow Up Examination Postoperative Visit- Primary documented in this encounter Additional Health Concerns Infection Onset Date Last Indicated Resolved Time Protective Environment 06/06/2023 06/06/2023 documented as of this encounter Care Teams Assistant Designer Relationship Specialty Start Date End Date Unassigned, Pcp PCP - General Family Medicine 03/22/22 documented as of this encounter
--- NOTE | 2023-09-25 09:15 | CRLHL7_ITS ---
For Patients: As a result of the Century Cures Act, medical imaging exams and procedure reports are released immediately into your electronic medical record. You may view this report before your referring provider. If you have questions, please contact your health care provider. DIGITAL DIAGNOSTIC LEFT MAMMOGRAM USING TOMOSYNTHESIS AND COMPUTER-AIDED DETECTION LEFT BREAST ULTRASOUND CLINICAL HISTORY: LEFT breast mass/asymmetry. COMPARISON: 09/19/2023. TECHNIQUE: Digital LEFT mammogram in two projections with computer-aided detection. Tomosynthesis was used in this interpretation. Real-time ultrasound imaging of LEFT breast with imaging documentation. BREAST COMPOSITION: The breast is heterogeneously dense, which may obscure small masses. FINDINGS: 3D spot compression CC/MLO LEFT breast mammogram images submitted. Decreased conspicuity of previously noted asymmetric density. No architectural distortion. No suspicious calcifications. Targeted LEFT breast ultrasound performed at 1 o`clock 8 cm from the nipple. Normal fibroglandular tissue. No fibrocystic change or mass. IMPRESSION: No suspicious findings. No evidence of malignancy. RECOMMENDATIONS: Annual bilateral screening mammography. Results and recommendations discussed with the patient. BI-RADS Category 2: Benign Dictated by Duane Tucker MD @ 09/25/2023 12:16:36 PM jj/Dictated by: Duane Tucker MD @ 09/25/2023 12:16:00 PM (Electronically Signed)
--- NOTE | 2023-09-25 10:00 | CRLHL7_ITS ---
For Patients: As a result of the Cures Act, medical imaging exams and procedure reports are released immediately into your electronic medical record. You may view this report before your referring provider. If you have questions, please contact your health care provider. PLEASE SEE DIGITAL DIAGNOSTIC LEFT MAMMOGRAM PERFORMED SAME DAY CRL:deepa arenas/Dictated by: Duane Tucker MD @ 09/25/2023 12:16:00 PM (Electronically Signed)
== END 2023-09-25 09:00 | disposition home or self-care (01) ==
LOC: MAMMO 09:00
PROVIDERS: PCP Physician Assistant; Visit Provider Internal Medicine Hematology & Oncology
DX: N63.20 Unspecified lump in the left breast, unspecified quadrant (principal); R92.2 Inconclusive mammogram
CPT/HCPCS: 76642; 77065; G0279

== ENCOUNTER 2023-09-29 11:19 | Outpatient (CLI) | payer OTHER, SELFPAY ==
--- NOTE | 2023-09-29 11:30 | CRLHL7_ITS ---
For Patients: As a result of the Century Cures Act, medical imaging exams and procedure reports are released immediately into your electronic medical record. You may view this report before your referring provider. If you have questions, please contact your health care provider. Indication: Right upper extremity redness of forearm with history of breast cancer Technique: Grayscale and color Doppler ultrasound of the right lower forearm soft tissues performed. Comparison: None Findings: Ill-defined area heterogeneous tissue within the subcutaneous fat in the area of concern. Normal images of the left forearm soft tissues for comparison purposes. No fluid collection. No evidence of DVT. Impression: No superficial or deep venous thrombosis. Ill-defined area of heterogeneous tissue within the subcutaneous fat of the right lower forearm. No drainable fluid collection or abscess. Dictated by Duane Tucker MD @ 09/29/2023 12:45:17 PM (Electronically Signed)
--- OUTSIDE RECORDS SUMMARY | 2023-09-29 11:31 | XMS_ITS | Clinical Summary ---
Author Organization [facility] Address [address] [place] [address] Care Team Providers Care Manager Energy Name Role Phone Unassigned, Pcp Primary Care Provider Unavailabl e Source Comments Patient records contain information from all sites at [facility]. For routine questions regarding patient records, call [phone] during business hours, M-F 8:00 AM - 5:00 PM Central Time. 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 on 12/17/2022 Pathologic stage from 12/02/2022:No Stage Recommended(ypT0, pN1a, cM0, GX, ER-, MI-, HER2-) - Signed by Laure Curtis M.D. on 12/17/2022 Encounters Date Type Department Care Team Description 09/26/2023 7:00 AM CDT Clinical Support Department of Physical Medicine and Rehabilitation in [place], [place] [address] [place] [phone] Liane Manriquez APRN, C.N.P., D.N.P. Bella Kamara R, O.T., CLT-GUY Lymphedema (Primary Dx); Limitation Of Motion Shoulder Joint Right 08/08/2023 10:00 AM CDT Clinical Support Department of Physical Medicine and Rehabilitation in [place], [place] [address] [place] [address] Liane Manriquez APRN, C.N.P., D.N.P. Bella Kamara R, O.T., CLT-GUY Limitation Of Motion Shoulder Joint Right 08/05/2023 Orders Only Division of Plastic Surgery in [address] [phone] Litzy Kingston APRN, C.N.P., D.N.P. Absence Of Breast Acquired Right (Primary Dx); Cancer Breast Personal History 07/07/2023 4:00 PM CDT Clinical Support Department of Physical Medicine and Rehabilitation in [place], [place] [address] [place] [phone] Liane Manriquez APRN, C.N.P., D.N.P. Bella Kamara R, O.T., CLT-GUY Limitation Of Motion Shoulder Joint Right from Last 3 Months Immunizations Name Administration Dates Next Due HepB (discontinued) adolesce nt/high risk infant 12/20/2009,11/16/2009 HepB Adult 12/20/2009 HepB, Unspecified 11/09/2009 [...] week, more like 2 times a month [facility] [employer] Answer Date Recorded In the past 12 months has [facility] [employer], gas, oil, or water [employer] threatened to shut off services in your [...] often do you attend chur ch or sabianism services? Never 05/17/2022 Do you belong to any clubs o r organizations such as denominational groups, unions, fraternal or athletic groups, or [...] Answer Date Recorded PHQ-2 Score 0 03/22/2022 [facility] Answer Date [...] your living situation today? I have a [facility] place to live 06/01/2023 Education Answer Date Recorded What is the highest level of school you have completed or the highest degree you have received? Associate degree: academic program 05/17/2022 Sex and Gender Information Value Date Recorded Sex Assigned at Female 05/17/2022 8:05 PM TIMBER APPRAISER Gender Identity Female 05/17/2022 8:05 PM TIMBER APPRAISER Sexual Orientation Straight 05/17/2022 8: 05 PM TIMBER APPRAISER Last Filed Vital Signs Vital Sign Reading Time Taken Comments Blood Pressure 106/68 04/07/2023 11:17 AM TIMBER APPRAISER Pulse 96 04/07/2023 11:17 AM TIMBER APPRAISER Temperature 36.6 ??C (97.9 ??F) 04/07/2023 10:[address] Respiratory Rate 18 04/07/2023 11:17 AM TIMBER APPRAISER Oxygen Saturation 97% 04/07/2023 10:46 AM TIMBER APPRAISER Inhaled Oxygen Concentration - - Weight 65.4 kg (144 lb 2.9 oz) 04/07/2023 6:45 A M TIMBER APPRAISER Height 162 cm (5' 3.78) 12/12/2022 11:51 AM CDT Body Mass Index 24.92 12/12/2022 11:51 AM CDT Plan of Treatment Upcoming Encounters Date Type Department Care Team (Latest Contact Info) Description 10/14/2023 10:20 AM CDT Lab Department of Infusion Therapy in [place], [place] [address] [place] [phone] Litzy Kingston APRN, C.N.P., D.N.P. [address] [place] [phone] 10/14/2023 11:15 AM CDT Appointment Department of Radiology, [facility], in [place], [place] [address] [place] [phone] MrduttSinai M.D., M.S. [address] [place] [phone] 10/14/2023 11:45 AM CDT Office Visit Division of Plastic Surgery in [place], [place] [address] [place] [phone] Pillo Ceballos M.D. [address] [place] [phone] 11/04/2023 7:35 AM CDT Hospital Encounter RST ROEI 01 4 AM ADMIT [address] [place] [phone] Pillo Ceballos M.D. [address] [place] [phone] 11/04/2023 7:35 AM CDT - 11/04/2023 12:05 PM CDT Surgery RST RO MAIN OR [address] [place] [address] Pillo Ceballos M.D. [address] [place] [phone] REMOVAL TISSUE NATURALIZATION EXAMINER BREAST 11/19/2023 10:30 AM CDT Office Visit Division of Plastic Surgery in [place], [place] [address] [place] [phone] Litzy Kingston APRN, C.N.P., D.N.P. [address] [place] [phone] 12/05/2023 11:30 AM CDT Clinical Communication Virtual Review in [place], [place] [address] [place] [phone] 12/08/2023 2:30 PM CDT Comprehensive Visit Integrative Medicine and Health in [place], [place] [address] [place] [phone] Shazia Meeks P.A.-C. [address] [place] [phone] Scheduled Procedures Name Priority Associated Diagnoses Date/Ti me REMOVAL TISSUE NATURALIZATION EXAMINER BREAST Absence Of Breast Acquired Right Cancer Breast Personal History 11/04/2023 7:35 AM CDT INJECTION FAT Absence Of Breast Acquired Right Cancer Breast Personal History 11/04/2023 7:35 AM CDT RECONSTRUCTION BREAST WITH IMPLANT Absence Of Breast Acquired Right Cancer Breast Personal History 11/04/2023 7:35 AM CDT REDUCTION BREAST Absence Of Breast Acquired Right Cancer Breast Personal History 11/04/2023 7:35 AM CDT REMOVAL CENTRAL VENOUS CATHETER - PORT Absence Of Breast Acquired Right Cancer Breast Personal History 11/04/2023 7:35 AM CDT Health Maintenance Due Date Last [...] or Tdap) 03/22/2032 03/22/2022, 02/26/2007 Mammogram Discontinued 09/25/2023, 09/07, 11/01/2022, Additional history exists HPV Vaccines Aged Out No longer eligi ble based on patient's age to complete this topic Medical Devices Implanted Type Area Ocean Import Representative Device Identifier Shelf Expiration Date Model / Serial / Lot Melodie Stephen Pillo Lopezthk 1.6 16x20 - [id number] Implanted:Qty: 1 on 12/02/2022 by Sinai Wolfe M.D., M.S. at [facility] Bone or Tissue Right: Breast [employer] 01/08/2024 [id number] / / [id number] Brst Nacl Tien Lopez 350 - [id number] - [id number] Implanted:Qty: 1 on 12/02/2022 by Sinai Wolfe M.D., M.S. at [facility] Breast Implant Right: Breast [employer] 10/07/2025 [id number]-[id number] / [id number] / [id number] Clp Hrzn Ti 6 Clp Mik - [id number] Implanted:Qty: 1 on 12/02/2022 by Sinai Wolfe M.D., M.S. at [facility] Hardware e.g. pins/screws/r ods Right: Breast [employer] [id number] / / Clp Hrzn Ti 6 Clp Sm Red - [id number] Implanted:Qty: 1 on 12/02/2022 by Sinai Wolfe M.D., M.S. at [facility] Hardware e.g. pins/screws/r ods Right: Breast [employer] [id number] / / Clp Hrzn Ti 6 Clp Sm Red - [id number] Implanted:Qty: 1 on 12/02/2022 by Sinai Wolfe M.D., M.S. at [facility] Hardware e.g. pins/screws/r ods Right: Breast [employer] [id number] / / Clp Hrzn Ti 24 Clp Sm Red - [id number] Implanted:Qty: 1 on 12/12/2022 by Sinai Wolfe M.D., M.S. at [facility] Hardware e.g. pins/screws/r ods [employer] [id number] 09/18/2027 [id number] / / [id number] Clp Hrzn Ti 6 Clp Md Mik - [id number] Implanted:Qty: 1 on 12/12/2022 by Sinai Wolfe M.D., M.S. at [facility] Hardware e.g. pins/screws/r ods [employer] [id number] 09/03/2027 [id number] / / [id number] Imaging Marker-04/22/19 Implanted:04/10 (Quantity not on file) Imaging Marker Right: Breast Imaging Marker-04/22/19 Implanted:04/10 (Quantity not on file) Imaging Marker Right: Breast Imaging Marker-04/22/19 Implanted:04/10 (Quantity not on file) Imaging Marker Right: Breast Imaging Marker-04/22/19 Implanted:04/10 (Quantity not on file) Imaging Marker Right: Axilla Implantable Port Implantable Port Left: Chest Procedures Procedure Name Priority Date/Time Associated Diagnosis Comments OUTSIDE US BREAST Routine 09/25/2023 9:5 0 AM CDT OUTSIDE MG MAMMOGRAM Routine 09/25/2023 9:15 AM CDT OUTSIDE MG MAMMOGRAM Routine 09/19/2023 7:45 AM CDT BASIC METABOLIC PANEL, S/P Routine 04/01/2023 12:26 PM TIMBER APPRAISER Absence Of Breast Acquired Right from Last 3 Months or Most Recently Relevant to Health Maintenance Results * US breast LT limited-Outside US Breast (09/25/2023 9:50 AM CDT) 09/25/2023 9:47 AM CDT Narrative IINH - 09/25/2023 10:57 AM CDT This order has been created and auto-finalized to support the import of outside images. If available, original interpretation can be found on the Media Tab in Chart Review, in Document Viewer, as an image in QREADS or as an Addendum. If a re-interpretation or overread is required please follow defined workflow.?? Provider Not In System IMG BI PROCEDURES Performing Organization Address [facility] de Phone Number IIMS NA * MM diagnostic mammo unilat LT-Outside Mammogram (09/25/2023 9:15 AM CDT) Only the most recent of2 resultswithin the time period is included. 09/25/2023 9:12 AM CDT Narrative IINH - 09/25/2023 11:02 AM CDT This order has been created and auto-finalized to support the import of outside images. If available, original interpretation can be found on the Media Tab in Chart Review, in Document Viewer, as an image in QREADS or as an Addendum. If a re-interpretation or overread is required please follow defined workflow.?? Provider Not In System IMG BI PROCEDURES Performing Organization Address [facility] Co de Phone Number IIMS NA * (ABNORMAL) Basic Metabolic Panel (04/01/2023 12:26 PM TIMBER APPRAISER) Potassium, S 4.2 3.6 - 5.2 mmol/L 04/01/2023 1:19 PM TIMBER APPRAISER DTL Sodium, S 143 135 - 145 mmol/L 04/01/2023 1:19 PM TIMBER APPRAISER DTL Chloride, S 105 98 - 107 mmol/L 04/01/2023 1:19 PM TIMBER APPRAISER DTL Bicarbonate, S 25 22 - 29 mmol/L 04/01/2023 1:19 PM TIMBER APPRAISER DTL Anion Gap 13 7 - 15 04/01/2023 1:19 PM TIMBER APPRAISER DTL BUN (Blood Urea Nitrogen), S 14 6 - 21 mg/dL 04/01/2023 1:19 PM TIMBER APPRAISER DTL Creatinine 1.06(H) 0.59 - 1.04 mg/dL 04/01/2023 1:19 PM TIMBER APPRAISER DTL Estimated GFR (eGFR) 63 >=60 mL/min/BSA 04/01/2023 1:19 PM TIMBER APPRAISER DTL Comment: Estimated GFR calculated using the 2020 CKD_EPI creatinine equation. Calcium, Total, S 9.5 8.6 - 10.0 mg/dL 04/01/2023 1:19 PM TIMBER APPRAISER DTL Glucose, S 99 70 - 140 mg/dL 04/01/2023 1:19 PM TIMBER APPRAISER DTL Blood (Blood, Venous) 04/01/2023 12:26 PM TIMBER APPRAISER 04/01/2023 1:01 PM TIMBER APPRAISER Liane Manriquez APRN C.N.P., D.N.P. LAB BLO OD ADD-ON [facility] [address] [place] [address], [facility] [address] [place] [address] from Last 3 Months or Most Recently Relevant to Health Maintenance Additional Health Concerns Infection Onset Date Last Indicated Protective Environment 06/06/2023 4 Advance Directives For more information, please contact: [phone] * Full Code (Latest Code Status on File) Date Activated Date Inactivated Comments 12/12/2022 11:24 AM 12/12/2022 9:43 PM Question Answer Comments Full Code: Not Discussed Due to: Not medically appropriate * Full Code Date Activated Date Inactivated Comments 12/02/2022 5:46 AM 12/02/2022 8:04 PM Question Answer Comments Full Code: Not Discussed Due to: Not medically appropriate Care Teams Manager Energy Relationship Specialty Start Date End Date Unassigned, Pcp PCP - General Family Medicine 03/22/22
--- OUTSIDE RECORDS SUMMARY | 2023-09-29 11:31 | XMS_ITS | Encounter Summary ---
Author Organization [facility] Address [address] [place] [address] Care Team Providers Care Street Light Lamp Cleaner Name Role Phone Unassigned, Pcp Primary Care Provider Unavailabl e Reason for Visit * Occupational Therapy (Routine) - Closed Specialty Diagnoses / Procedures Referred By Fiona peck Referred To Contact Diagnoses Limitation Of Motion Shoulder Joint Right Procedures OT Ongoing Treatment Liane Manriquez APRN, C.N.P., D.N.P. [address] [place] [phone] [facility] Referral ID Status Reason Start Date Expiration Date Visits Re quested Visits Authorized [id number] Closed 06/06/2023 06/05/2024 6 6 Encounter Details Date Type Department Care Team (Latest Contact Info) Description 08/08/2023 10:00 AM CDT Clinical Support Department of Physical Medicine and Rehabilitation in [place], [place] 200 [place] [phone] Liane Manriquez APRN, C.N.PJosé, D.N.P. [address] [place] [phone] Bella Kamara O.T., CLT-GUY [address] [place] [phone] Limitation Of Motion Shoulder Joint Right Social History Tobacco Use Types Packs/Day Years Used Date Smoking Tobacco: Former Cigarettes 0 03/10/1991 - 03/10/2011 Smokeless Tobacco: Never Alcohol Use Standard Drinks/Week Comments Yes 1 (1 standard drink = 0.6 oz pure alcohol) Occasionally not ever week, more like 2 times a month [facility] People and Pagesities Answer Date Recorded In the past 12 months has e [employer], gas, oil, or water [employer] threatened to shut off services in your [...] week 05/17/2022 How often do you attend [facility] or taoism services? Never 05/17/2022 Do you belong to any clubs o r organizations such as mandaeism groups, unions, fraternal or athletic groups, or [...] Answer Date Recorded PHQ-2 Score 0 03/22/2022 [facility] Questionnaire Answer [...] your living situation today? [facility] 06/01/2023 Education Answer Date Recorded What is the highest level of school you have completed or the highest degree you have received? Associate degree: academic program 05/17/2022 Sex and Gender Information Value Date Recorded Sex Assigned at Female 05/17/2022 8:05 PM UTILIZATION REVIEW SPECIALIST Gender Identity Female 05/17/2022 8:05 PM UTILIZATION REVIEW SPECIALIST Sexual Orientation Straight 05/17/2022 8: 05 PM UTILIZATION REVIEW SPECIALIST documented as of this encounter Progress Notes [...] on 12/02/22 and right ALND on 12/12/22. [id number] fractions of radiation March 01, 2023. She had fat grafting on 04/07/2023. Onset Date: 12/12/22 Payor: [employer] / Plan: [employer] OPEN ACCESS / Product Type: PPO / [...] CDT Lab Department of Infusion Therapy in [place], [place] [address] [place] [phone] Litzy Kingston APRN, C.N.P., D.N.P. [address] [place] [phone] 10/14/2023 11:15 AM CDT Appointment Department of Radiology, [facility], in [place], [place] [address] [place] [phone] Sinai Wolfe M.D., M.S. [address] [place] [phone] 10/14/2023 11:45 AM CDT Office Visit Division of Plastic Surgery in [place], [place] [address] [place] [phone] Pillo Ceballos M.D. [address] [place] [phone] 11/04/2023 7:35 AM CDT Hospital Encounter RST RO 01 4 AM ADMIT [address] [place] [phone] Pillo Ceballos M.D. [address] [place] [phone] 11/04/2023 7:35 AM CDT - 11/04/2023 12:05 PM CDT Surgery RST [facility] MAIN OR [address] [place] [phone] Pillo Ceballos M.D. [address] [place] [phone] REMOVAL TISSUE ELECTRIC TRUCK DRIVER BREAST 11/19/2023 10:30 AM CDT Office Visit Division of Plastic Surgery in [place], [place] [address] [place] [phone] Litzy Kingston, JORDI, C.N.P., D.N.P. [address] [place] [phone] 12/05/2023 11:30 AM CDT Clinical Communication Virtual Review in [place], [place] 200 [place] [phone] 12/08/2023 2:30 PM CDT Comprehensive Visit [facility] in [place], [place] [address] [place] [phone] Shazia Meeks, P.A.-C. [address] [place] [phone] Scheduled Procedures Name Priority Associated Diagnoses Date/Ti me REMOVAL TISSUE ELECTRIC TRUCK DRIVER BREAST Absence Of Breast Acquired Right Cancer [...] Breast Personal History 11/04/2023 7:35 AM CDT documented as of this encounter Visit Diagnoses Diagnosis Absence Of Breast Acquired Right Cancer Breast Personal History Limitation Of Motion Shoulder Joint Right Absence Of Breast Acquired Right Cancer Breast Personal History documented in this encounter Additional Health Concerns Infection Onset Date Last Indicated Resolved Time Protective Environment 06/06/2023 06/06/2023 documented as of this encounter Care Teams Street Light Lamp Cleaner Relationship Specialty Start Date End Date Unassigned, Pcp PCP - General Family Medicine 03/22/22 documented as of this encounter
--- OUTSIDE RECORDS SUMMARY | 2023-09-29 11:31 | XMS_ITS | Encounter Summary ---
Author Organization [facility] Address [address] [place] [address] Care Team Providers Care Laborer/Key Man Name Role Phone Unassigned, Pcp Primary Care Provider Unavailabl e Reason for Visit * Occupational Therapy (Routine) - Closed Specialty Diagnoses / Procedures Referred By Fiona peck Referred To Contact Diagnoses Limitation Of Motion Shoulder Joint Right Procedures OT Ongoing Treatment Liane Manriquez APRN, C.N.P., D.N.P. [address] [place] [phone] [facility] Referral ID Status Reason Start Date Expiration Date Visits Re quested Visits Authorized [id number] Closed 06/06/2023 06/05/2024 6 6 Encounter Details Date Type Department Care Team (Latest Contact Info) Description 09/26/2023 7:00 AM CDT Clinical Support Department of Physical Medicine and Rehabilitation in [place], [place] 200 [place] [phone] Liane Manriquez APRN, C.N.PJosé, D.N.P. [address] [place] [phone] Bella Kamara O.T., CLT-GUY [address] [place] [phone] Lymphedema (Primary Dx); Limitation Of Motion Shoulder Joint Right Social History Tobacco Use Types Packs/Day Years Used Date Smoking Tobacco: Former Cigarettes 0 03/10/1991 - 03/10/2011 Smokeless Tobacco: Never Alcohol Use Standard Drinks/Week Comments Yes 1 (1 standard drink = 0.6 oz pure alcohol) Occasionally not ever week, more like 2 times a month [facility] Utilities Answer Date Recorded In the past 12 months has e iCopyright, gas, oil, or water [employer] threatened to shut off services in [...] week 05/17/2022 How often do you attend [facility] or mandaen services? Never 05/17/2022 Do you belong to any clubs o r organizations such as pentecostal groups, unions, fraternal or athletic groups, or [...] Answer Date Recorded PHQ-2 Score 0 03/22/2022 [facility] - Occupational Stress Questionnaire Answer Date Recorded [...] Sex Assigned at Female 05/17/2022 8:05 PM HOME HOSPICE AIDE Gender Identity Female 05/17/2022 8:05 PM HOME HOSPICE AIDE Sexual Orientation Straight 05/17/2022 8: 05 PM HOME HOSPICE AIDE documented as of this encounter Progress Notes * Bella Kamara O.T., CLT-GUY - 09/26/2023 7:00 AM CDT Occupational Therapy Cancer Rehabilitation/ Lymphedema Outpatient Progress Note By co-signing this note, the provider certifies the therapy being provided to this patient is reasonable and necessary for the diagnosis or treatment of this patient. Patient's Name: Alison Cowart Referring Provider: Liane Manriquez APRN, C.NRicardo, Willis.NRicardo Rehab Diagnosis: 1. Lymphedema 2. Limitation Of Motion Shoulder Joint Right Reason for Referral: Re-evaluation for right upper extremity edema/pain History of Present Illness: Right breast cancer invasive ductal carcinoma s/p neoadjuvant chemotherapy, right mastectomy with TE placement and R SLNB on 12/02/22 and right ALND on 12/12/22. [id number] fractions of radiation March 01, 2023. She had fat grafting on 04/07/2023. 1-2 weeks ago patient developed right upper extremity pain and edema primarily in forearm after vacation that includedair travel. Onset Date: 12/12/22 Payor: [employer] / Plan: DLS OPEN ACCESS / Product Type: PPO / SUBJECTIVE Patient reports she continues to be followed in [place] by Physical therapy. She has been consistent with her chest wall and shoulder stretches but noted new ???bruising?? feeling in right upper extremity and edema in forearm approximately 1-2 weeks ago. Total Visit Count: 8 OBJECTIVE L-dex score as measured by [employer]: May 08.6, September 2019 4:8.8 greater than 7 point change Bioimpedance spectroscopy (BIS) is used as part of a prospective surveillance model, supported by National Comprehensive Cancer Network Survivorship Guidelines to detect subclinical lymphedema. Intervention is triggered by an L- dex score of > 6.5 L-Dex units above baseline measurements. Right shoulder range of motion: Flexion 170, abduction 130, external rotation ninety after stretches. Initial external rotation about 80. Edema 1+ pitting edema right forearm. 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 She also has a pulling/bruising feeling in right upper extremity. Chest wall: Thickened tissue/muscle/myofascial restriction with trigger points in pectoralis complex right chest wall typical of radiation fibrosis TREATMENT Contacted Plastic Service regarding ultrasound for right upper extremity to rule out DVT. Low concern for this but this will need to be ruled out before manual techniques can be done. Rachelle Kingston [employer] MAKER recommend that her primary care physician order the ultrasound therefore patient instructed to discuss this with her primary care physician today. Took measurements and sent patient to [employer] to warehouse order picker a sleeve and gauntlet. She needs to wear the sleeve during the day whenever she symptomatic with edema. Performed overhead flexion, pectoralis stretch and external rotation stretches. Performed trigger point releases along the pectoralis major and minor muscle bellies. I did not perform tissue bending in the forearm until ultrasound rolls out a DVT. 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 Low suspicion for DVT but recommend she be seen by her PCP who should order an ultrasound. Recommend compression sleeve and to continue with chest wall stretches. Hold manual te chniques to upper extremity until DVT ruled out. Plan follow-up with patient in 3-4 weeks. Functional Goals and Timeframe's: Goal #1: Patient to have at least 160?? of right shoulder flexion 130?? of abduction and 90?? of external rotation within 6 weeks Goal #1 Status: Met Goal #2: Patient will demonstrate full pain free range of motion in bilateral upper extremities. Goal #2 Status: Progressing Goal #3: Patient to have decreased edema and discomfort in right upper extremity to allow for full functional use of the right upper extremity at work and at home Goal #3 Date: 12/25/23 Goal #3 Status: Progressing Plan TREATMENT PLAN Number of Visits: up to 6 visits Plan: Plan of care initiated Plan Comments: Follow-up in 3-4 weeks Treatment interventions may include: Therapeutic exercise, Manual therapy Daytime Compression Program: Arm sleeve, Gauntlet Daytime Compression Program Additional Details: Compression sleeve, gauntlet as needed OT: Time Spent with Patient Evaluations OT Re-Eval (min) : 23 min Therapeutic Interventions Manual Therapy (min): 13 min Therapeutic Exercise (min): 11 min Time Tracking Total Timed Units (min): 24 min Total Treatment Time (min): 47 min Bella Kamara O.T., CLT-GUY documented in this encounter Plan of Treatment Upcoming Encounters Date Type Department Care Team (Latest Contact Info) Description 10/14/2023 10:20 AM CDT Lab Department of Infusion Therapy in [place], [place] [address] [place] [phone] Litzy Kingston APRN, C.N.P., D.N.P. [address] [place] [phone] 10/14/2023 11:15 AM CDT Appointment Department of Radiology, [facility], in [place], [place] [address] [place] [phone] Sinai Wolfe M.D., M.S. [address] [place] [phone] 10/14/2023 11:45 AM CDT Office Visit Division of Plastic Surgery in [place], [place] [address] [place] [phone] Pillo Ceballos M.D. [address] [place] [phone] 11/04/2023 7:35 AM CDT Hospital Encounter RST ROEI 01 4 AM ADMIT [address] [place] [phone] Pillo Ceballos M.D. [address] [place] [phone] 11/04/2023 7:35 AM CDT - 11/04/2023 12:05 PM CDT Surgery [facility] MAIN OR [address] [place] [phone] Pillo Ceballos M.D. [address] [place] [phone] REMOVAL TISSUE STRAP BUCKLER MACHINE BREAST 11/19/2023 10:30 AM CDT Office Visit Division of Plastic Surgery in [place], [place] [address] [place] [phone] Litzy Kingston, JORDI, C.N.P., D.N.P. [address] [place] [phone] 12/05/2023 11:30 AM CDT Clinical Communication Virtual Review in [place], [place] 200 [place] [phone] 12/08/2023 2:30 PM CDT Comprehensive Visit Integrative Medicine and Health in [place], [place] [address] [place] [phone] Shazia Meeks, P.AJosé-C. [address] [place] [phone] Scheduled Procedures Name Priority Associated Diagnoses Date/Ti me REMOVAL TISSUE STRAP BUCKLER MACHINE BREAST Absence Of Breast Acquired Right Cancer [...] Breast Acquired Right Cancer Breast Personal History Lymphedema- Primary Limitation Of Motion Shoulder Joint Right Absence Of Breast Acquired Right Cancer Breast Personal History documented in this encounter Additional Health Concerns Infection Onset Date Last Indicated Resolved Time Protective Environment 06/06/2023 06/06/2023 documented as of this encounter Care Teams Laborer/Key Man Relationship Specialty Start Date End Date Unassigned, Pcp PCP - General Family Medicine 03/22/22 documented as of this encounter
--- OUTSIDE RECORDS SUMMARY | 2023-09-29 11:31 | XMS_ITS ---
Author Organization [facility] Address [address] [place] [address] Care Team Providers Care Microeconomics Professor Name Role Phone Unavailable Unavailable Unavailable Surgery Details Not on file Complications Check Surgery Details section. Procedure Estimated Blood Loss Check Surgery Details section. Procedure Findings Check Surgery Details section. Procedure Specimens Taken Check Surgery Details section.
--- OUTSIDE RECORDS SUMMARY | 2023-09-29 11:31 | XMS_ITS | Referral Summary ---
Author Organization [facility] Address [address] [place] [address] Care Team Providers Care Helper Maintenance Cleaning Name Role Phone Unassigned, Pcp Primary Care Provider Unavailabl e Source Comments Patient records contain information from all sites at [facility]. For routine questions regarding patient records, call [phone] during business hours, M-F 8:00 AM - 5:00 PM Central Time. Record requests for emergency care only can be directed to [phone] at any time.[facility] Encounters Date Type Department Care Team Description 09/26/2023 7:00 AM CDT Clinical Support Department of Physical Medicine and Rehabilitation in [place], [place] [address] [place] [phone] Liane Manriquez APRN, C.N.P., D.N.P. Bella Kamara R, O.T., CLT-GUY Lymphedema (Primary Dx); Limitation Of Motion Shoulder Joint Right 08/08/2023 10:00 AM CDT Clinical Support Department of Physical Medicine and Rehabilitation in [place], [place] [address] [place] [phone] Liane Manriquez APRN, C.N.P., D.N.P. Bella Kamara, O.T., CLT-GUY Limitation Of Motion Shoulder Joint Right 08/05/2023 Orders Only Division of Plastic Surgery in [place], [place] [address] [place] [phone] Litzy Kingston APRN, C.N.P., D.N.P. Absence Of Breast Acquired Right (Primary Dx); Cancer Breast Personal History 07/07/2023 4:00 PM CDT Clinical Support Department of Physical Medicine and Rehabilitation in [place], [place] [address] [place] [phone] Liane Manriquez APRN, C.N.P., D.N.P. Bella Kamara OVikram, T-GUY Limitation Of Motion Shoulder Joint Right from [...] from 05/22/2022:Stage IIIB(cT3, cN1(f), cM0, G2, ER-, MO-, HER2-) - Signed by Laure Curtis M.D. on 12/17/2022 Pathologic stage from 12/02/2022:No Stage Recommended(ypT0, pN1a, cM0, GX, ER-, MO-, HER2-) - Signed by Laure Curtis M.D. [...] week, more like 2 times a month [facility] Zmanda Answer Date Recorded In the past 12 months has [employer], gas, oil, or water [employer] threatened to shut off services in your [...] How often do you attend chur or zoroastrianism services? Never 05/17/2022 Do you belong to any clubs o r organizations such as yazidism groups, unions, fraternal or athletic groups, or [...] Answer Date Recorded PHQ-2 Score 0 03/22/2022 [facility] - Occupational Stress Questionnaire Answer [...] your living situation today? I have a [facility] place to live 06/01/2023 Education Answer Date Recorded What is the highest level of school you have completed or the highest degree you have received? Associate degree: academic program 05/17/2022 Sex and Gender Information Value Date Recorded Sex Assigned at Female 05/17/2022 8:05 PM PREVENTIVE MEDICINE OFFICER Gender Identity Female 05/17/2022 8:05 PM PREVENTIVE MEDICINE OFFICER Sexual Orientation Straight 05/17/2022 8: 05 PM PREVENTIVE MEDICINE OFFICER Last Filed Vital Signs Vital Sign Reading Time Taken Comments Blood Pressure 106/68 04/07/2023 11:17 AM PREVENTIVE MEDICINE OFFICER Pulse 96 04/07/2023 11:17 AM PREVENTIVE MEDICINE OFFICER Temperature 36.6 ??C (97.9 ??F) 04/07/2023 10:[address] Respiratory Rate 18 04/07/2023 11:17 AM PREVENTIVE MEDICINE OFFICER Oxygen Saturation 97% 04/07/2023 10:46 AM PREVENTIVE MEDICINE OFFICER Inhaled Oxygen Concentration - - Weight 65.4 kg (144 lb 2.9 oz) 04/07/2023 6:45 A M PREVENTIVE MEDICINE OFFICER Height 162 cm (5' 3.78) 12/12/2022 11:51 AM CDT Body Mass Index 24.92 12/12/2022 11:51 AM CDT Plan of Treatment Upcoming Encounters Date Type Department Care Team (Latest Contact Info) Description 10/14/2023 10:20 AM CDT Lab Department of Infusion Therapy in [place], [place] 200 [place] [phone] Litzy Kingston, JORDI, C.N.P., D.N.P. 200 [place] [phone] 10/14/2023 11:15 AM CDT Appointment Department of Radiology, [facility], in [place], [place] [address] [place] [phone] Sinai Wolfe M.D., M.S. [address] [place] [phone] 10/14/2023 11:45 AM CDT Office Visit Division of Plastic Surgery in [place], [place] [address] [place] [phone] Pillo Ceballos M.D. [address] [place] [phone] 11/04/2023 7:35 AM CDT Hospital Encounter RST RO 01 4 AM ADMIT [address] [place] [phone] Pillo Ceballos M.D. [address] [place] [phone] 11/04/2023 7:35 AM CDT - 11/04/2023 12:05 PM CDT Surgery RST RO MAIN OR [address] [place] [phone] Pillo Ceballos M.D. [address] [place] [phone] REMOVAL TISSUE LAND COMMISSIONER BREAST 11/19/2023 10:30 AM CDT Office Visit Division of Plastic Surgery in [place], [place] [address] [place] [phone] Litzy Kingston APRN, C.N.P., D.N.P. [address] [place] [phone] 12/05/2023 11:30 AM CDT Clinical Communication Virtual Review in [place], [place] 200 [place] [phone] 12/08/2023 2:30 PM CDT Comprehensive Visit Integrative Medicine and Health in [place], [place] [address] [place] [phone] Shazia Meeks P.A.-C. 200 [place] [phone] Scheduled Procedures Name Priority Associated Diagnoses Date/Ti me REMOVAL TISSUE LAND COMMISSIONER BREAST Absence Of Breast Acquired Right Cancer [...] Breast Personal History 11/04/2023 7:35 AM CDT Medical Devices Implanted Type Area Factory Helper Device Identifier Shelf Expiration Date Model / Serial / Lot Grft Alldevin Ferro Mdthk 1.6 16x20 - [id number] Implanted:Qty: 1 on 12/02/2022 by Sinai Wolfe M.D., M.S. at [facility] Bone or Tissue Right: Breast [employer] 01/08/2024 [id number] / / [id number] Brst Nacl Tien Lopez 350cc - [id number] - [id number] Implanted:Qty: 1 on 12/02/2022 by Sinai Wolfe M.D., M.S. at [facility] Breast Implant Right: Breast [employer] 10/07/2025 SCPX-[id number] / [id number] / [id number] Clp Hrzn Ti 6 Nhi Lopez Mik - [id number] Implanted:Qty: 1 on 12/02/2022 by Sinai Wolfe M.D., M.S. at [facility] Hardware e.g. pins/screws/r ods Right: Breast [employer] [id number] / / Clp Hrzn Ti 6 Clp Di Red - [id number] Implanted:Qty: 1 on 12/02/2022 by Sinai Wolfe M.D., M.S. at [facility] Hardware e.g. pins/screws/r ods Right: Breast [employer] / / Clp Hrzn Ti 6 Clp Sm Red - [id number] Implanted:Qty: 1 on 12/02/2022 by Sinai Wolfe M.D., M.S. at [facility] Hardware e.g. pins/screws/r ods Right: Breast [employer] / / Clp Hrzn Ti 24 Clp Sm Red - [id number] Implanted:Qty: 1 on 12/12/2022 by Sinai Wolfe M.D., M.S. at [facility] Hardware e.g. pins/screws/r ods [employer] [id number] 09/18/2027 [id number] / / [id number] Clp Hrzn Ti 6 Clp Md Mik - [id number] Implanted:Qty: 1 on 12/12/2022 by Sinai Wolfe M.D., M.S. at [facility] Hardware e.g. pins/screws/r ods [employer] [id number] 09/03/2027 [id number] / / [id number] Imaging Marker-04/22/19 Implanted:04/10 (Quantity not on [...] METABOLIC PANEL, S/P Routine 04/01/2023 12:26 PM PREVENTIVE MEDICINE OFFICER Absence Of Breast Acquired Right from Last 3 Months or Most Recently Relevant to Health Maintenance Results * US breast LT limited-Outside US Breast (09/25/2023 9:50 AM CDT) 09/25/2023 9:47 AM CDT Narrative IIND - 09/25/2023 10:57 AM CDT This order [...] System IMG BI PROCEDURES Performing Organization Address [facility] Co de Phone Number IIMS NA * MM diagnostic mammo unilat LT-Outside Mammogram (09/25/2023 9:15 AM CDT) Only the most recent of2 resultswithin the time period is included. 09/25/2023 9:12 AM CDT Narrative [facility] - 09/25/2023 11:02 AM CDT This order has been created and auto-finalized to support the import of outside images. If available, original interpretation can be found on the Media Tab in Chart Review, in Document Viewer, as an image in QREADS or as an Addendum. If a re-interpretation or overread is required please follow defined workflow.?? Provider Not In System IM BI PROCEDURES Performing Organization Address [facility] Co de Phone Number IIMS NA * (ABNORMAL) Basic Metabolic Panel (04/01/2023 12:26 PM PREVENTIVE MEDICINE OFFICER) Potassium, S 4.2 3.6 - 5.2 mmol/L 04/01/2023 1:19 PM PREVENTIVE MEDICINE OFFICER DTL Sodium, S 143 135 - 145 mmol/L 04/01/2023 1:19 PM PREVENTIVE MEDICINE OFFICER DTL Chloride, S 105 98 - 107 mmol/L 04/01/2023 1:19 PM PREVENTIVE MEDICINE OFFICER DTL Bicarbonate, S 25 22 - 29 mmol/L 04/01/2023 1:19 PM PREVENTIVE MEDICINE OFFICER DTL Anion Gap 13 7 - 15 04/01/2023 1:19 PM PREVENTIVE MEDICINE OFFICER DTL BUN (Blood Urea Nitrogen), S 14 6 - 21 mg/dL 04/01/2023 1:19 PM PREVENTIVE MEDICINE OFFICER DTL Creatinine 1.06(H) 0.59 - 1.04 mg/dL 04/01/2023 1:19 PM PREVENTIVE MEDICINE OFFICER DTL Estimated GFR (eGFR) 63 >=60 mL/min/BSA 04/01/2023 1:19 PM PREVENTIVE MEDICINE OFFICER DTL Comment: Estimated GFR calculated using the 2020 CKD_EPI creatinine equation. Calcium, Total, S 9.5 8.6 - 10.0 mg/dL 04/01/2023 1:19 PM PREVENTIVE MEDICINE OFFICER DTL Glucose, S 99 70 - 140 mg/dL 04/01/2023 1:19 PM PREVENTIVE MEDICINE OFFICER DTL Blood (Blood, Venous) 04/01/2023 12:26 PM PREVENTIVE MEDICINE OFFICER 04/01/2023 1:01 PM PREVENTIVE MEDICINE OFFICER Agustín Quintero APRNN.PJosé, D.N.P. LAB BLO OD ADD-ON [facility] [address] [place] [address], [facility] [address] [place] [address] from Last 3 Months or Most Recently Relevant to Health Maintenance Additional Health Concerns Infection Onset Date Last Indicated Protective Environment 06/06/2023 4 Advance Directives For more information, please contact: [phone] * Full Code (Latest Code Status on File) Date Activated Date Inactivated Comments 12/12/2022 11:24 AM 12/12/2022 9:43 PM Question Answer Comments Full Code: Not Discussed Due to: Not medically appropriate * Full Code Date Activated Date Inactivated Comments 12/02/2022 5:46 AM 12/02/2022 8:04 PM Question Answer Comments Full Code: Not Discussed Due to: Not medically appropriate Care Teams Helper Maintenance Cleaning Relationship Specialty Start Date End Date Unassigned, Pcp PCP - General Family Medicine 03/22/22
--- OUTSIDE RECORDS SUMMARY | 2023-09-29 11:31 | XMS_ITS ---
Author Organization [facility] Address [address] [place] [address] Care Team Providers Care Elder Counselor Name Role Phone Unassigned, Pcp Primary Care [...] from 05/22/2022:Stage IIIB(cT3, cN1(f), cM0, G2, ER-, [place]-, HER2-) - Signed by Laure Curtis M.D. on 12/17/2022 Pathologic stage from 12/02/2022:No Stage Recommended(ypT0, pN1a, cM0, GX, ER-, NC-, HER2-) - Signed by Laure Curtis M.D. [...] Treated Prescribed Fraction Dose Prescribed Total Dose [id number] 02/27/2023 35 25 of 25 200 cGy 5,000 cGy Reference Point Last Treated On Elapsed Days Session Dose Total Dose [id number] 02/27/2023 35 200 cGy 5,000 cGy
--- OUTSIDE RECORDS SUMMARY | 2023-09-29 11:31 | XMS_ITS | Encounter Summary ---
Author Organization [facility] Address [address] [place] [address] Care Team Providers Care Nuclear Medicine Physician Name Role Phone Unassigned, Pcp Primary Care Provider Unavailabl e Reason for Referral * Outpatient (Routine) - Authorized Specialty Diagnoses / Procedures Referred By Contac t Referred To Contact Plastic Surgery Litzy Kingston APRN, C.N.P., D.N.P. 200 [place] [phone] [facility] Referral ID Status Reason Start Date Expiration Date V isits Requested Visits Authorized [id number] Authorized 08/05/2023 02/03/2025 1 1 Scheduling Instructions Schedule with Litzy Amaral first, otherwise Liane or Dora if Litzy Amaral not available * Outpatient (Routine) - Authorized Specialty Diagnoses / Procedures Referred By Contac t Referred To Contact Plastic Surgery Litzy Kingston APRN, C.N.P., D.N.P. [address] [place] [phone] [facility] Referral ID Status Reason Start Date Expiration Date V isits Requested Visits Authorized [id number] Authorized 08/05/2023 02/03/2025 [address] Ceballos on 09/23 at 1pm, override Encounter Details Date Type Department Care Team (Late st Contact Info) Description 08/05/2023 Orders Only Division of Plastic Surgery in [place], [place] [address] [place] [address] Litzy Kingston APRN, C.N.P., D.N.P. [address] [place] [address] Absence Of Breast Acquired Right (Primary Dx); Cancer Breast Personal History Social History Tobacco Use Types Packs/Day Years Used Date Smoking Tobacco: Former Cigarettes 0 03/10/1991 - 03/10/2011 Smokeless Tobacco: Never Alcohol Use Standard Drinks/Week Comments Yes 1 (1 standard drink = 0.6 oz pure alcohol) Occasionally not ever week, more like 2 times a month [facility] [employer] Answer Date Recorded In the past 12 months has [employer], gas, oil, or water [employer] threatened to shut off services in your [...] often do you attend chur ch or adventism services? Never 05/17/2022 Do you belong to any clubs o r organizations such as sikh groups, unions, fraternal or athletic groups, or [...] Answer Date Recorded PHQ-2 Score 0 03/22/2022 [facility] of Occupat ional Health - Occupational Stress [...] your living situation today? I have a [facility] place to live 06/01/2023 Education Answer Date Recorded What is the highest level of school you have completed or the highest degree you have received? Associate degree: academic program 05/17/2022 Sex and Gender Information Value Date Recorded Sex Assigned at Female 05/17/2022 8:05 PM TELEGRAPH OFFICE TELEPHONE CLERK Gender Identity Female 05/17/2022 8:05 PM TELEGRAPH OFFICE TELEPHONE CLERK Sexual Orientation Straight 05/17/2022 8: 05 PM TELEGRAPH OFFICE TELEPHONE CLERK documented as of this encounter Plan of Treatment Upcoming Encounters Date Type Department Care Team (Latest Contact Info) Description 10/14/2023 10:20 AM CDT Lab Department of Infusion Therapy in [place], [place] [address] [place] [address] Litzy Kingston APRN, C.N.P., D.N.P. [address] [place] [phone] 10/14/2023 11:15 AM CDT Appointment Department of Radiology, [facility], in [place], [place] [address] [place] [phone] Sinai Wolfe M.D., M.S. [address] [place] [phone] 10/14/2023 11:45 AM CDT Office Visit Division of Plastic Surgery in [place], [place] [address] [place] [phone] Pillo Ceballos M.D. [address] [place] [phone] 11/04/2023 7:35 AM CDT [facility] AM [facility]MIT [address] [place] [phone] Pillo Ceballos M.D. [address] [place] [phone] 11/04/2023 7:35 AM CDT - 11/04/2023 12:05 PM CDT Surgery [facility] MAIN OR [address] [place] [address] Pillo Ceballos M.D. [address] [place] [phone] REMOVAL TISSUE DISTRIBUTOR CLEANER BREAST 11/19/2023 10:30 AM CDT Office Visit Division of Plastic Surgery in [place], [place] [address] [place] [phone] Litzy Kingston, JODRI, C.N.P., D.N.P. [address] [place] [phone] 12/05/2023 11:30 AM CDT Clinical Communication Virtual Review in [place], [place] 200 [place] [address] 12/08/2023 2:30 PM CDT Comprehensive Visit [facility] in [place], [place] [address] [place] [phone] Shazia Meeks, P.A.-C. [address] [place] [phone] Scheduled Orders Name Type Priority Associated Diagnoses Orde r Schedule Basic Metabolic Panel Lab Routine Absence Of Breast Acquired Right Cancer Breast Personal History Expected: 09/24/2023, Expires: 08/04/2024 CBC with Differential, Blood Lab Routine Absence Of Breast Acquired Right Cancer Breast Personal History Expected: 09/24/2023, Expires: 11/04/2024 Scheduled Procedures Name Priority Associated Diagnoses Date/Ti me REMOVAL TISSUE DISTRIBUTOR CLEANER BREAST Absence Of Breast Acquired Right Cancer [...] Breast Personal History 11/04/2023 7:35 AM CDT Scheduled Referrals Name Type Priority [...] documented as of this encounter Care Teams Nuclear Medicine Physician Relationship Specialty Start Date End Date Unassigned, Pcp PCP - General Family Medicine 03/22/22 documented as of this encounter
--- OUTSIDE RECORDS SUMMARY | 2023-09-29 11:31 | XMS_ITS | Encounter Summary ---
Author Organization [facility] Address [address] [place] [address] Care Team Providers Care Dredge Master Name Role Phone Unassigned, Pcp Primary Care Provider Unavailabl e Reason for Visit * Outpatient (Routine) - Closed Specialty Diagnoses / Procedures Referred By Fiona peck Referred To Contact Plastic Surgery Sushila Hardy P.A.-C. [address] [place] [phone] [facility] Referral ID Status Reason Start Date Expiration Date Visits Re quested Visits Authorized [id number] Closed 04/28/2023 10/27/2024 1 1 Encounter Details Date Type Department Care Team (Latest Contact Info) Description 06/24/2023 8:00 AM CDT Telemedicine Division of Plastic Surgery in [place], [place] [address] [place] [phone] Sushila Hardy P.A.-C. [address] [place] [phone] Follow Up Examination Postoperative Visit (Primary Dx) Social History Tobacco Use Types Packs/Day Years Used Date Smoking Tobacco: Former Cigarettes 0 03/10/1991 - 03/10/2011 Smokeless Tobacco: Never Alcohol Use Standard Drinks/Week Comments Yes 1 (1 standard drink = 0.6 oz pure alcohol) Occasionally not ever week, more like 2 times a month [facility] Utilities Answer Date Recorded In the past [...] often do you attend chur ch or christian services? 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 She denies signs/symptoms [...] these occur. Pt is aware that [facility] surgeons recommend prophylactic antibiotics anytime she is [...] CDT Lab Department of Infusion Therapy in [place], [place] [address] [place] [phone] Litzy Kingston, JORDI, C.N.P., D.N.P. [address] [place] [phone] 10/14/2023 11:15 AM CDT Appointment Department of Radiology, [facility], in [place], [place] [address] [place] [phone] Sinai Wolfe M.D., M.S. [address] [place] [phone] 10/14/2023 11:45 AM CDT Office Visit Division of Plastic Surgery in [address] [phone] Pillo Ceballos M.D. [address] [place] [phone] 11/04/2023 7:35 AM CDT Hospital Encounter [facility] 01 4 AM ADMIT [address] [place] [phone] Pillo Ceballos M.D. [address] [place] [phone] 11/04/2023 7:35 AM CDT - 11/04/2023 12:05 PM CDT Surgery [facility] MAIN OR [address] [place] [address] Pillo Ceballos M.D. [address] [place] [phone] REMOVAL TISSUE CAR SHAKEOUT OPERATOR BREAST 11/19/2023 10:30 AM CDT Office Visit Division of Plastic Surgery in [place], [place] [address] [place] [phone] Litzy Kingston, JORDI, C.N.P., D.N.P. [address] [place] [phone] 12/05/2023 11:30 AM CDT Clinical Communication Virtual Review in [place], [place] 200 [place] [address] 12/08/2023 2:30 PM CDT Comprehensive Visit [facility] in [place], [place] [address] [place] [phone] Shazia Meeks, P.A.-C. [address] [place] [phone] Scheduled Procedures Name Priority Associated Diagnoses Date/Ti me REMOVAL TISSUE CAR SHAKEOUT OPERATOR BREAST Absence Of Breast Acquired Right [...] documented as of this encounter Care Teams Dredge Master Relationship Specialty Start Date End Date Unassigned, Pcp PCP - General Family Medicine 03/22/22 documented as of this encounter
--- OUTSIDE RECORDS SUMMARY | 2023-09-29 11:31 | XMS_ITS | Encounter Summary ---
Author Organization [facility] Address [address] [place] [address] Care Team Providers Care Photo Equipment Technician Name Role Phone Unassigned, Pcp Primary Care Provider Unavailabl e Reason for Visit * Occupational Therapy (Routine) - Closed Specialty Diagnoses / Procedures Referred By Fiona peck Referred To Contact Diagnoses Limitation Of Motion Shoulder Joint Right Procedures OT Ongoing Treatment Liane Manriquez APRN, C.N.P., D.N.P. [address] [place] [phone] [facility] Referral ID Status Reason Start Date Expiration Date Visits Re quested Visits Authorized [id number] Closed 06/06/2023 06/05/2024 6 6 Encounter Details Date Type Department Care Team (Latest Contact Info) Description 07/07/2023 4:00 PM CDT Clinical Support Department of Physical Medicine and Rehabilitation in [place], [place] 200 [place] [phone] Liane Manriquez APRN, C.N.PJosé, D.N.P. [address] [place] [phone] Bella Kamara O.T., CLT-GUY [address] [place] [phone] Limitation Of Motion Shoulder Joint Right Social History Tobacco Use Types Packs/Day Years Used Date Smoking Tobacco: Former Cigarettes 0 03/10/1991 - 03/10/2011 Smokeless Tobacco: Never Alcohol Use Standard Drinks/Week Comments Yes 1 (1 standard drink = 0.6 oz pure alcohol) Occasionally not ever week, more like 2 times a month [facility] [employer] Answer Date Recorded In the past 12 months has e [employer], gas, oil, or water [employer] threatened to shut off services in your [...] week 05/17/2022 How often do you attend [facility] or amish services? Never 05/17/2022 Do you belong to any clubs o r organizations such as mandaen groups, unions, fraternal or athletic groups, or [...] Answer Date Recorded PHQ-2 Score 0 03/22/2022 [facility] - Occupational Stress Questionnaire Answer Date [...] your living situation today? [facility] 06/01/2023 Education Answer Date Recorded What is the highest level of school you have completed or the highest degree you have received? Associate degree: academic program 05/17/2022 Sex and Gender Information Value Date Recorded Sex Assigned at Female 05/17/2022 8:05 PM DIGITAL SOLUTIONS ARCHITECT Gender Identity Female 05/17/2022 8:05 PM DIGITAL SOLUTIONS ARCHITECT Sexual Orientation Straight 05/17/2022 8: 05 PM DIGITAL SOLUTIONS ARCHITECT documented as of this encounter Progress Notes * Bella Kamara O.T., CLT-GUY - 07/07/2023 4:00 PM CDT Occupational Therapy [...] on 12/02/22 and right ALND on 12/12/22. [id number] fractions of radiation March 01, 2023. She had fat grafting on 04/07/2023. Onset Date: 12/12/22 Payor: [employer] / Plan: [employer] OPEN ACCESS / Product Type: PPO / [...] CDT Lab Department of Infusion Therapy in [place], [place] [address] [place] [phone] Litzy Kingston, JORDI, C.N.P., D.N.P. [address] [place] [phone] 10/14/2023 11:15 AM CDT Appointment Department of Radiology, [facility], in [place], [place] [address] [place] [address] Sinai Wolfe M.D., M.S. [address] [place] [phone] 10/14/2023 11:45 AM CDT Office Visit Division of Plastic Surgery in [place], [place] [address] [place] [phone] Pillo Ceballos M.D. [address] [place] [phone] 11/04/2023 7:35 AM CDT Hospital Encounter [facility] 01 4 AM ADMIT [address] [place] [phone] Pillo Ceballos M.D. [address] [place] [phone] 11/04/2023 7:35 AM CDT - 11/04/2023 12:05 PM CDT Surgery [facility] MAIN OR [address] [place] [address] Pillo Ceballos M.D. [address] [place] [phone] REMOVAL TISSUE GENETIC SUPERVISOR BREAST 11/19/2023 10:30 AM CDT Office Visit Division of Plastic Surgery in [place], [place] [address] [place] [phone] Litzy Kingston APRN, C.N.P., D.N.P. [address] [place] [phone] 12/05/2023 11:30 AM CDT Clinical Communication Virtual Review in [place], [place] 200 [place] [address] 12/08/2023 2:30 PM CDT Comprehensive Visit [facility] in [place], [place] [address] [place] [address] [place] [phone] Shazia Meeks P.A.-C. [address] [place] [address] Scheduled Procedures Name Priority Associated Diagnoses Date/Ti me REMOVAL TISSUE GENETIC SUPERVISOR BREAST Absence Of Breast Acquired Right Cancer [...] documented as of this encounter Care Teams Photo Equipment Technician Relationship Specialty Start Date End Date Unassigned, Pcp PCP - General Family Medicine 03/22/22 documented as of this encounter
--- OUTSIDE RECORDS SUMMARY | 2023-09-29 11:31 | XMS_ITS | Encounter Summary ---
Author Organization [facility] Address [address] [place] [address] Care Team Providers Care Ramp Lead Name Role Phone Unassigned, Pcp Primary Care Provider Unavailabl e Reason for Visit * Occupational Therapy (Routine) - Closed Specialty Diagnoses / Procedures Referred By Fiona peck Referred To Contact Diagnoses Limitation Of Motion Shoulder Joint Right Procedures OT Ongoing Treatment Liane Manriquez APRN, C.N.P., D.N.P. [address] [place] [phone] [facility] Referral ID Status Reason Start Date Expiration Date Visits Re quested Visits Authorized [id number] Closed 06/06/2023 06/05/2024 6 6 Encounter Details Date Type Department Care Team (Latest Contact Info) Description 06/24/2023 3:00 PM CDT Clinical Support Department of Physical Medicine and Rehabilitation in [place], [place] 200 [place] [phone] Liane Manriquez APRN, C.N.PJosé, D.N.P. [address] [place] [phone] Bella Kamara O.T., CLT-GUY [address] [place] [phone] Limitation Of Motion Shoulder Joint Right Social History Tobacco Use Types Packs/Day Years Used Date Smoking Tobacco: Former Cigarettes 0 03/10/1991 - 03/10/2011 Smokeless Tobacco: Never Alcohol Use Standard Drinks/Week Comments Yes 1 (1 standard drink = 0.6 oz pure alcohol) Occasionally not ever week, more like 2 times a month [facility] [employer] Answer Date Recorded In the past 12 months has e [employer], gas, oil, or water [employer] threatened to shut off services in your [...] week 05/17/2022 How often do you attend [facility] or methodist services? Never 05/17/2022 Do you belong to any clubs o r organizations such as religious groups, unions, fraternal or athletic groups, or [...] Answer Date Recorded PHQ-2 Score 0 03/22/2022 [facility] - Occupational Stress Questionnaire Answer [...] your living situation today? [facility] 06/01/2023 Education Answer Date Recorded What is the highest level of school you have completed or the highest degree you have received? Associate degree: academic program 05/17/2022 Sex and Gender Information Value Date Recorded Sex Assigned at Female 05/17/2022 8:05 PM LEAD DATABASE ADMINISTRATOR Gender Identity Female 05/17/2022 8:05 PM LEAD DATABASE ADMINISTRATOR Sexual Orientation Straight 05/17/2022 8: 05 PM LEAD DATABASE ADMINISTRATOR documented as of this encounter Progress Notes * Bella Kamara O.Theodore., CLT-GUY - 06/24/2023 3:00 PM CDT Occupational Therapy [...] on 12/02/22 and right ALND on 12/12/22. [id number] fractions of radiation March 01, 2023. She had fat grafting on 04/07/2023. Onset Date: 12/12/22 Payor: Drive / Plan: Drive OPEN ACCESS / Product Type: PPO / [...] CDT Lab Department of Infusion Therapy in [place], [place] 200 [place] [address] Litzy Kingston, JORDI, C.N.P., D.N.P. [address] [place] [phone] 10/14/2023 11:15 AM CDT Appointment Department of Radiology, [facility], in [place], [place] [address] [place] [phone] Sinai Wolfe M.D., M.S. [address] [place] [phone] 10/14/2023 11:45 AM CDT Office Visit Division of Plastic Surgery in [place], [place] [address] [place] [phone] Pillo Ceballos M.D. [address] [place] [phone] 11/04/2023 7:35 AM CDT Hospital Encounter [facility] 01 4 AM ADMIT [address] [place] [phone] Pillo Ceballos M.D. [address] [place] [phone] 11/04/2023 7:35 AM CDT - 11/04/2023 12:05 PM CDT Surgery [facility] MAIN OR [address] [place] [address] Pillo Ceballos M.D. [address] [place] [phone] REMOVAL TISSUE DIRECT SUPPORT PROFESSIONAL CAREGIVER BREAST 11/19/2023 10:30 AM CDT Office Visit Division of Plastic Surgery in [place], [place] [address] [place] [phone] Litzy Kingston APRN, C.N.P., D.N.P. [address] [place] [phone] 12/05/2023 11:30 AM CDT Clinical Communication Virtual Review in [place], [place] [address] [place] [phone] 12/08/2023 2:30 PM CDT Comprehensive Visit [facility] in [place], [place] [address] [place] [address] Shazia Meeks P.A.-C. [address] [place] [phone] Scheduled Procedures Name Priority Associated Diagnoses Date/Ti me REMOVAL TISSUE DIRECT SUPPORT PROFESSIONAL CAREGIVER BREAST Absence Of Breast Acquired Right Cancer [...] documented as of this encounter Care Teams Ramp Lead Relationship Specialty Start Date End Date Unassigned, Pcp PCP - General Family Medicine 03/22/22 documented as of this encounter
== END 2023-09-29 11:20 | disposition home or self-care (01) ==
PROVIDERS: PCP Physician Assistant; Visit Provider Internal Medicine Hematology & Oncology
DX: C50.911 Malignant neoplasm of unspecified site of right female breast (principal)
CPT/HCPCS: 93971

== ENCOUNTER 2023-12-11 10:30 | Outpatient (RCR) | payer OTHER, SELFPAY ==
[2023-07-03] MEDS: HEPARIN 500 UNIT/5 ML SYRINGE IVF (12:34)
[2023-07-03] MEDS: SODIUM CHLORIDE 0.9 % (FLUSH) 10 ML SYRINGE IVF (12:34)
[2023-07-03 12:38] LABS: Eosinophils Percent Auto 1.9 % (0.0-7.0); Hematocrit 33.8 % (33.0-51.0); Hemoglobin* 11.7 gm/dL (12.0-16.0); Lymphocytes Percent Auto 33.4 % (20-44); Mean Corpuscular HGB Conc 35 gm/dL (32-36); Mean Corpuscular Hemoglobin 36 pg (26-34); Mean Corpuscular Volume 104 fL (80-100); Monocytes Percent Auto 10.4 % (0.0-11.0); Neutrophils Percent Auto 54.3 % (42.0-72.0); Platelet Count* 179 K/uL (140-440); RDW Coefficient of Variation % 18.4 % (11.5-15.5); Red Blood Count 3.25 m/uL (4.00-5.20); White Blood Count* 3.65 K/uL (4.50-11.00)
[2023-07-03 12:55] LABS: Albumin* 4.5 g/dL (3.3-5.0); Chloride* 105 mmol/L (96-114); Potassium* 3.9 mmol/L (3.6-5.1); Sodium* 138 mmol/L (135-149)
[2023-07-03 12:58] LABS: Alanine Aminotransferase* 26 U/L (4-35); Alkaline Phosphatase* 126 U/L (40-150); Anion Gap 6 mEq/L (7-15); Aspartate Amino Transferase* 41 U/L (12-35); Bilirubin Total* 1.1 mg/dL (0.1-1.5); Blood Urea Nitrogen* 19 mg/dL (7-30); Carbon Dioxide* 27 mmol/L (20-32); Creatinine* 0.9 mg/dL (0.5-1.5); Estimated Glomerular Filt Rate 77 ml/min; Glucose* 91 mg/dL (60-115); Total Protein* 7.2 g/dL (6.0-8.3)
[2023-07-03 12:59] LABS: Calcium* 9.4 mg/dL (8.4-10.6)
[2023-07-03 14:04] LABS: Slide Review Reflex No
--- NOTE | 2023-07-04 08:48 | ONC.NURNOTE ---
Call to patient to review lab results. All values are within parameters to continue Capecitabine. Patient reports her hands and feet are more dry but no blistering or peeling. Patient confirms that she is taking 1500 mg BID x 14 days followed by 7 days off. She will start her next cycle on 07/07.
[2023-07-28 08:08] LABS: Basophils Percent Auto 0.3 % (0.0-3.0); Hematocrit 35.2 % (33.0-51.0); Hemoglobin* 12.4 gm/dL (12.0-16.0); Lymphocytes Percent Auto 26.6 % (20-44); Mean Corpuscular HGB Conc 35 gm/dL (32-36); Mean Corpuscular Hemoglobin 38 pg (26-34); Mean Corpuscular Volume 107 fL (80-100); Monocytes Percent Auto 10.9 % (0.0-11.0); Neutrophils Percent Auto 59.2 % (42.0-72.0); Platelet Count* 192 K/uL (140-440); RDW Coefficient of Variation % 17.4 % (11.5-15.5); Red Blood Count 3.28 m/uL (4.00-5.20); White Blood Count* 3.68 K/uL (4.50-11.00)
[2023-07-28 08:16] LABS: Slide Review Reflex No
[2023-07-28 08:20] LABS: Albumin* 4.3 g/dL (3.3-5.0)
[2023-07-28 08:21] LABS: Chloride* 110 mmol/L (96-114); Potassium* 3.7 mmol/L (3.6-5.1); Sodium* 141 mmol/L (135-149)
[2023-07-28 08:23] LABS: Anion Gap 5 mEq/L (7-15); Aspartate Amino Transferase* 32 U/L (12-35); Bilirubin Total* 0.8 mg/dL (0.1-1.5); Carbon Dioxide* 26 mmol/L (20-32); Creatinine* 0.8 mg/dL (0.5-1.5); Estimated Glomerular Filt Rate 89 ml/min
[2023-07-28 08:24] LABS: Alanine Aminotransferase* 21 U/L (4-35); Alkaline Phosphatase* 120 U/L (40-150); Blood Urea Nitrogen* 16 mg/dL (7-30); Calcium* 8.9 mg/dL (8.4-10.6); Glucose* 107 mg/dL (60-115)
[2023-07-28] MEDS: HEPARIN 500 UNIT/5 ML SYRINGE IVF (08:51)
[2023-07-28] MEDS: SODIUM CHLORIDE 0.9 % (FLUSH) 10 ML SYRINGE IVF (08:51)
[2023-08-18] MEDS: SODIUM CHLORIDE 0.9 % (FLUSH) 10 ML SYRINGE IVF (09:45)
[2023-08-18] MEDS: HEPARIN 500 UNIT/5 ML SYRINGE IVF (09:46)
[2023-08-18 10:06] LABS: Basophils Percent Auto 0.7 % (0.0-3.0); Eosinophils Percent Auto 3.9 % (0.0-7.0); Hematocrit 34.4 % (33.0-51.0); Hemoglobin* 11.9 gm/dL (12.0-16.0); Mean Corpuscular HGB Conc 35 gm/dL (32-36); Mean Corpuscular Hemoglobin 38 pg (26-34); Mean Corpuscular Volume 109 fL (80-100); Monocytes Percent Auto 15.2 % (0.0-11.0); Neutrophils Percent Auto 46.2 % (42.0-72.0); Platelet Count* 181 K/uL (140-440); RDW Coefficient of Variation % 16.4 % (11.5-15.5); Red Blood Count 3.16 m/uL (4.00-5.20); White Blood Count* 2.82 K/uL (4.50-11.00)
[2023-08-18 10:07] LABS: Slide Review Reflex No
[2023-08-18 10:23] LABS: Albumin* 4.1 g/dL (3.3-5.0); Chloride* 110 mmol/L (96-114); Potassium* 4.3 mmol/L (3.6-5.1); Sodium* 140 mmol/L (135-149)
[2023-08-18 10:25] LABS: Anion Gap 4 mEq/L (7-15); Carbon Dioxide* 26 mmol/L (20-32); Creatinine* 0.8 mg/dL (0.5-1.5); Estimated Glomerular Filt Rate 89 ml/min
[2023-08-18 10:26] LABS: Alanine Aminotransferase* 21 U/L (4-35); Alkaline Phosphatase* 111 U/L (40-150); Aspartate Amino Transferase* 32 U/L (12-35); Bilirubin Total* 0.9 mg/dL (0.1-1.5); Blood Urea Nitrogen* 15 mg/dL (7-30); Calcium* 8.8 mg/dL (8.4-10.6); Glucose* 95 mg/dL (60-115); Total Protein* 6.5 g/dL (6.0-8.3)
--- NOTE | 2023-08-18 14:54 | ONC.NURNOTE ---
Lab results reviewed with JOCELIN Licea. Patient informed that her infection fighting cells are low (ANC 1.3 and WBC 2.8). She was instructed to start her last cycle of Capecitabine tomorrow at the same dose, 1500 mg BID 14 days on and 7 days off. Neutropenic precautions discussed. Patient to seek medical attention for any signs of infection. Patient verbalizes understanding.
[2023-09-22] MEDS: SODIUM CHLORIDE 0.9 % (FLUSH) 10 ML SYRINGE IVF (08:05)
[2023-09-22] MEDS: HEPARIN 500 UNIT/5 ML SYRINGE IVF (08:05)
[2023-09-22 08:17] LABS: Basophils Percent Auto 0.3 % (0.0-3.0); Eosinophils Percent Auto 4.8 % (0.0-7.0); Hematocrit 36.3 % (33.0-51.0); Hemoglobin* 12.2 gm/dL (12.0-16.0); Lymphocytes Percent Auto 32.7 % (20-44); Mean Corpuscular HGB Conc 34 gm/dL (32-36); Mean Corpuscular Hemoglobin 37 pg (26-34); Mean Corpuscular Volume 111 fL (80-100); Monocytes Percent Auto 16.8 % (0.0-11.0); Neutrophils Percent Auto 45.4 % (42.0-72.0); Platelet Count* 180 K/uL (140-440); RDW Coefficient of Variation % 14.1 % (11.5-15.5); Red Blood Count 3.26 m/uL (4.00-5.20); White Blood Count* 3.33 K/uL (4.50-11.00)
[2023-09-22 08:20] LABS: Slide Review Reflex No
[2023-09-22 08:30] LABS: Chloride* 111 mmol/L (96-114)
[2023-09-22 08:31] LABS: Potassium* 4.1 mmol/L (3.6-5.1); Sodium* 141 mmol/L (135-149)
[2023-09-22 08:33] LABS: Anion Gap 5 mEq/L (7-15); Aspartate Amino Transferase* 36 U/L (12-35); Bilirubin Total* 0.5 mg/dL (0.1-1.5); Carbon Dioxide* 25 mmol/L (20-32); Creatinine* 0.9 mg/dL (0.5-1.5); Estimated Glomerular Filt Rate 76 ml/min
[2023-09-22 08:34] LABS: Alanine Aminotransferase* 27 U/L (4-35); Alkaline Phosphatase* 101 U/L (40-150); Blood Urea Nitrogen* 18 mg/dL (7-30); Glucose* 92 mg/dL (60-115); Total Protein* 6.6 g/dL (6.0-8.3)
--- NOTE | 2023-09-26 14:19 | ONC.NURNOTE ---
Addendum entered by Dhara García 09/29/23 08:46: Reviewed with Dr. Sebastian. US orders entered. Patient scheduled for today at 11:30. Patient verbalizes understanding. Original Note: Patient calls to report that she saw her OT at [facility] today. Luci has been noticing more swelling in her right arm. She states it feels bruised. Denies redness. Her OT gave her a lymphedema sleeve today and recommended she call us to get an US to rule out a DVT. She states the OT thought it was unlikely but since she has flown recently they felt it would be a good idea. I discussed with patient about going to urgent care/ER but patient did not get the sense that there was that big of urgency. I assured her that I would discuss with Dr. Sebastian on Friday and return her call. If her pain or swelling worsens over the weekend, she should be evaluated right away. Patient verbalizes understanding.
--- NOTE | 2023-09-29 13:21 | ONC.NURNOTE ---
I met with patient after her venous ultrasound. Patient was already aware that there was no evidence of DVT. Patient informed that Dr. Sebastian has sent an Rx to her pharmacy for the treatment of RUE cellulitis. Patient instructed to monitor the area closely and to call if symptoms (redness, pain, fever, etc.) are worsening or not improving. Patient verbalizes understanding.
--- NOTE | 2023-10-01 09:47 | ONC.NURNOTE ---
Addendum entered by Dhara García 10/06/23 17:17: Patient called [employer] navigator today with an update on her condition. She reports that she has 2 days left of her antibiotics. It feels better and looks better but is still lumpy and bumpy. She only has pain when she twists her wrist. She is wondering if she needs to continue her antibiotics a little longer. Patient also sent a picture via email for review. Dr. Sebastian reviewed and recommends an additional 7 days of antibiotics. Patient was encouraged to get an appointment set up with her OT in [facility] as well. Patient verbalizes understanding of plan. Original Note: Call to patient for an update on her condition. Patient states she is a little better. She reports the swelling in her right arm has gone down quite a bit, it is not as hot and she is experiencing less pain. She reports it feels lumpy. Patient instructed to continue monitoring closely and if symptoms do not continue to improve she is to call.
== END 2023-12-30 23:59 | disposition home or self-care (01) ==
LOC: CCIC 10:30
PROVIDERS: Clinical Nurse Specialist; PCP Physician Assistant; Referring Provider Physician Assistant; Visit Provider Internal Medicine Hematology & Oncology
DX: C50.911 Malignant neoplasm of unspecified site of right female breast (principal); Z17.1 Estrogen receptor negative status [ER-]; Z90.11 Acquired absence of right breast and nipple
CPT/HCPCS: 36415; 36591; 80053; 85025; 99215; G0463; J1642

== ENCOUNTER 2024-03-02 10:00 | Outpatient (RCR) | payer OTHER, SELFPAY | END 2024-04-12 07:43 | disposition home or self-care (01) | PROVIDERS: PCP Physician Assistant; Visit Provider Nurse Practitioner | DX: C50.811 Malignant neoplasm of overlapping sites of right female breast (principal); C77.3 Secondary and unspecified malignant neoplasm of axilla and upper limb lymph nodes; Z74.09 Other reduced mobility; N64.4 Mastodynia; M79.12 Myalgia of auxiliary muscles, head and neck; Z51.89 Encounter for other specified aftercare | CPT/HCPCS: 97110; 97140; 97161; 97164; 97530 ==

== ENCOUNTER 2024-06-21 08:30 | Outpatient (RCR) | payer OTHER, SELFPAY ==
--- NOTE | 2024-06-21 13:13 | ONC.NURNOTE ---
Per bernardo Gallagher for pt to proceed with timing of annual mammogram in September per her plastic surgery team. Pt notified.
--- NOTE | 2024-06-21 14:55 | ONC.NURNOTE ---
PT referral faxed to [facility] [phone] for stiffness/pain post fat grafting 06/14/24.
--- NOTE | 2024-09-22 14:02 | ONC.NURNOTE ---
Patient emailed [facility] with concer of new left breast lump. See note below. I just wanted to mention that tonight I felt what seems to be a lump on the top portion of my left breast ( the real one). I feel its the area that I had the fat grafting done in June. I am praying to god that maybe its just scar tissue or fat neucrossis. Its about 5 cm up from my nipple around 1 oclock if looking at my breast. I? felt I should mention it. Of course I am extremely worried about it given my history. I have a mammo set for this Friday but do not see Dr until Oct 11.? Can the mammo be moved up at all. or maybe an ultrasound done. What do you think? Im booked solid at work but I will keep an eye on my emails. I leave for [facility] morning of September 29 and not back to town October 05 am.? Regardless of what this ends up being i have really been considering just doing a masectomy on the left breast. This worrying is horrible and just the shape and feel difference from the right side I have not been happy with. Anyway, let me know what you suggest. Maybe there is an option to have an ultrasound done or a 3d mammo done friday as well. Im off friday so what ever you can swing I can do. Reviewed with Gay Landers APRN. Orders placed for LEFT diagnostic mammogram and US. Radiology will call patient to schedule.
== END 2024-09-11 23:59 | disposition home or self-care (01) ==
LOC: CCIC 08:30
PROVIDERS: PCP Physician Assistant; Referring Provider Physician Assistant; Visit Provider Physician Assistant
DX: C50.911 Malignant neoplasm of unspecified site of right female breast (principal); Z17.1 Estrogen receptor negative status [ER-]; Z90.11 Acquired absence of right breast and nipple
CPT/HCPCS: 99213; 99214; G0463

== ENCOUNTER 2024-09-23 09:26 | Outpatient (CLI) | payer OTHER, SELFPAY ==
--- NOTE | 2024-09-23 09:45 | CRLHL7_ITS ---
For Patients: As a result of the Century Cures Act, medical imaging exams and procedure reports are released immediately into your electronic medical record. You may view this report before your referring provider. If you have questions, please contact your health care provider. LEFT BREAST DIAGNOSTIC MAMMOGRAM WITH COMPUTER-AIDED DETECTION AND TOMOSYNTHESIS LEFT BREAST ULTRASOUND CLINICAL HISTORY: LEFT breast lump. COMPARISON: 09/25/2023, 09/19/2023. TECHNIQUE: Digital LEFT mammogram in three projections with computer-aided detection. Tomosynthesis was used in this interpretation. Real-time ultrasound imaging of LEFT breast with imaging documentation. BREAST COMPOSITION: The breasts are heterogeneously dense, which may obscure small masses. FINDINGS: 3D CC/MLO LEFT breast mammogram images submitted along with a 2D XCCL image. Post autologous fat injection procedure noted. No architectural distortion. No adenopathy. No suspicious calcifications. Targeted LEFT breast ultrasound performed in the area of concern at 12 o`clock, 4 cm from the nipple. In this location, there is a circumscribed heterogeneous hypoechoic nodule which measures 16 x 11 x 14 mm. No suspicious vascularity. No distal acoustic shadowing. IMPRESSION: Benign fat necrosis LEFT breast 12 o`clock, 4 cm from the nipple, measuring 1.6 cm. No suspicious findings. No evidence of malignancy. RECOMMENDATIONS: Routine screening mammography. A lay language report of this examination will be provided to the patient. BI-RADS Category 2: Benign Dictated by Duane Tucker MD @ 09/23/2024 11:08:43 AM /sp SP/Dictated by: Duane Tucker MD @ 09/23/2024 11:08:00 AM (Electronically Signed)
--- NOTE | 2024-09-23 10:15 | CRLHL7_ITS ---
For Patients: As a result of the Century Cures Act, medical imaging exams and procedure reports are released immediately into your electronic medical record. You may view this report before your referring provider. If you have questions, please contact your health care provider. PLEASE SEE LEFT BREAST DIAGNOSTIC MAMMOGRAM OF SAME DAY. CRL:sp SP/Dictated by: Duane Tucker MD @ 09/23/2024 11:08:00 AM (Electronically Signed)
== END 2024-09-23 09:27 | disposition home or self-care (01) ==
LOC: MAMMO 09:26
PROVIDERS: PCP Physician Assistant; Visit Provider Clinical Nurse Specialist
DX: N63.20 Unspecified lump in the left breast, unspecified quadrant (principal); R92.333 Mammographic heterogeneous density, bilateral breasts
CPT/HCPCS: 76642; 77065; G0279

== ENCOUNTER 2024-09-24 11:00 | Outpatient (RCR) | payer OTHER, SELFPAY | END 2025-01-22 23:59 | disposition home or self-care (01) | PROVIDERS: PCP Physician Assistant; Visit Provider Physician Assistant | DX: Z48.89 Encounter for other specified surgical aftercare (principal); C50.911 Malignant neoplasm of unspecified site of right female breast; Z51.89 Encounter for other specified aftercare | CPT/HCPCS: 97110; 97140; 97161 ==

== ENCOUNTER 2024-12-27 11:52 | Outpatient (CLI) | payer OTHER, SELFPAY ==
--- NOTE | 2024-12-27 12:15 | CRLHL7_ITS ---
For Patients: As a result of the Century Cures Act, medical imaging exams and procedure reports are released immediately into your electronic medical record. You may view this report before your referring provider. If you have questions, please contact your health care provider. Indication: Right chest wall lump Technique: Grayscale and color Doppler ultrasound of the right chest wall performed in the area of concern. Comparison: None Findings: Postop changes of right mastectomy with reconstruction. Implant is intact. Benign subcutaneous lymph node is present within the medial right chest wall which measures 3 x 1 x 2 millimeters. Normal internal vascularity. Impression: No suspicious findings. Normal subcutaneous lymph node. Dictated by Duane Tucker MD @ 12/27/2024 1:01:09 PM (Electronically Signed)
== END 2024-12-27 11:53 | disposition home or self-care (01) ==
LOC: US 11:53
PROVIDERS: PCP Physician Assistant; Visit Provider Internal Medicine Hematology & Oncology
DX: R22.2 Localized swelling, mass and lump, trunk (principal); N63.10 Unspecified lump in the right breast, unspecified quadrant
CPT/HCPCS: 76604